=== PATIENT | female | born 1955 | race Caucasian/White ===

== ENCOUNTER 2019-11-28 18:37 | Emergency (ER) | payer MEDICARE, SELFPAY ==
[2019-11-28] VITALS (8 sets, daily range): BP systolic 148–182; BP diastolic 68–87; PULSE 77–92; RESP 17–22; TEMP 36.6; O2SAT 96–100
--- NOTE | ~2019-11-28 | XR_ITS ---
EXAMINATION: XR chest 1V portable DATE: 11/28/2019 20:02 INDICATION: Cough. Dyspnea. TECHNIQUE: A single frontal view of the chest was obtained. COMPARISON: Chest 2 views 04/07/2016, chest CT 04/07/2016 FINDINGS: There are airspace opacities in left lower lung zone. No pleural effusion or pneumothorax. The heart size is normal. There is a prominent left paracardial fat pad. There is an old healed fract ure of left clavicle. IMPRESSION: 1. Airspace opacities in left lower lung zone, consistent with atelectasis versus pneumonia. Reviewed, dictated and finalized at location A. IMPRESSION: 1. Airspace opacities in left lower lung zone, consistent with atelectasis vers us pneumonia.
--- NOTE | 2019-11-28 19:32 | ED.SOB ---
HPI - SOB/Dyspnea General Chief Complaint: Shortness of Breath/Dyspnea Stated Complaint: cough Time Seen by Provider: 11/28/19 19:31 Source: patient Mode of arrival: ambulatory Limitations: no limitations History of Present Illness HPI Narrative: The pt is a 64 y/o female who presents to the ED c/o productive cough onset 4 days ago. Pt states that she has a PMHx of asthma, and she has used her inhaler 4-5 times a day with 2 puffs at a time. Pt states that the cough is intermittently productive with white sputum. Pt reports SOB and left scapular pain with deep breaths, but denies CP and fever. Pt notes that she used to smoke cigarettes, but quit in 1989. She notes that her adopted son, who is seven, is sick currently as well. MD elicited complaint: cough Pertinent past history: asthma Onset (ago): day(s) (4) Context: other (Adopted son is sick) Known history of: asthma Associated symptoms: sputum production (Intermittent, white) and other (Dyspnea, left scapular pain with deep breaths) Treatment prior to arrival: bronchodilator Related Data Allergies Allergy/AdvReac Type Severity Reaction Status Date / Time tetracycline Allergy Mild Nausea and Verified 11/28/19 19:51 Vomiting Review of Systems Review of Systems: All systems reviewed & are unremarkable except as noted in HPI and below Constitutional: Constitutional: Denies fever(s) Cardiovascular: Cardiovascular: Denies chest pain Respiratory: Respiratory: Reports cough (Intermittently productive with white sputum) and Reports dyspnea Musculoskeletal: Musculoskeletal: Reports other (Left scapular pain with deep breaths) [facility] Past Medical History Medical History (Updated 11/28/19 @ 22:23 by Eusebia Parmar MD) Asthma Bilateral cataracts Clavicular fracture Diabetes mellitus Dislocation of left patella HTN (hypertension) Left wrist fracture Sleep apnea Surgical History Surgical History (Updated 11/28/19 @ 19:39 by Mina Lopez) H/O bilateral cataract extraction H/O tubal ligation H/O wrist surgery Left wrist ORIF Hx of LASIK Social History Social History (Updated 11/28/19 @ 19:55 by Mina Lopez) Smoking status: Former smoker Comments PCP: Dr. Rainey Exam Const: General: cooperative, no acute distress and alert Nutritional Appearance: obese Orientation/consciousness: patient oriented x3 Limitations: no limitations Resp: Effort & Inspection: other (Bronchospastic cough) Auscultation: wheezes throughout Cardio: Rate: regular rate Rhythm: regular rhythm GI: GI Palp: Yes Soft to palpation and No Tenderness to palpation present (GI) Auscultation: normal bowel sounds Skin: General skin exam: normal color Neuro: General: patient oriented x3 Cognition (Neuro): normal cognition Speech: normal speech Extrem: General: normal to inspection, full ROM and no clubbing, cyanosis or edema Psych: Mental Status: mental status grossly normal Affect: normal affect Attitude: cooperative Course Course Emergency Course: Patient feeling better after hour-long continuous nebulizer treatment. Patient wheezing significantly improved. Chest x-ray suggestive of possible pneumonia. Will treat with antibiotics. Will prescribe steroids for acute exacerbation of asthma/COPD. Patient was prescribed nebulizer solution and given order for nebulizer machine given she has used this in the past. Vital Signs Vital signs: Vital Signs Temperature 98 F 11/28/19 18:48 Pulse Rate 89 11/28/19 18:48 Respiratory Rate 22 H 11/28/19 18:48 Blood Pressure 182/68 H 11/28/19 18:48 Pulse Oximetry 96 11/28/19 18:48 Temperature 98 F 11/28/19 18:48 Pulse Rate 90 11/28/19 21:18 Respiratory Rate 20 11/28/19 21:18 Blood Pressure 154/87 H 11/28/19 20:40 Pulse Oximetry 100 11/28/19 20:40 MDM - SOB/Dyspnea Imaging Data Radiologist's impression: ITS Impressions Chest X-Ray 11/28/19 20:03 IMPRESSION: 1. Airspace op
[2019-11-28] MEDS: ALBUTEROL SULFATE NEB 2.5 MG/0.5 ML INH 15 MG INHALATION (20:08)
[2019-11-28] MEDS: IPRATROPIUM BR 0.02% INH SOLN 0.5 MG/2.5 ML VIAL 1.5 MG INHALATION (20:09)
== END 2019-11-28 22:52 | disposition home or self-care (01) ==
PROVIDERS: Emergency Provider Emergency Medicine
DX: J44.1 Chronic obstructive pulmonary disease with (acute) exacerbation (principal); J18.1 Lobar pneumonia, unspecified organism; E11.9 Type 2 diabetes mellitus without complications; I10 Essential (primary) hypertension; G47.30 Sleep apnea, unspecified; Z98.42 Cataract extraction status, left eye; Z98.41 Cataract extraction status, right eye; Z87.891 Personal history of nicotine dependence
CPT/HCPCS: 71045; 94640; 99283

== ENCOUNTER 2020-01-26 21:54 | Emergency (ER) | payer MEDICARE, SELFPAY ==
--- NOTE | ~2020-01-26 | XR_ITS ---
EXAMINATION: XR knee RT 3V DATE: 01/26/2020 22:17 INDICATION: Right knee pain. Injury. TECHNIQUE: 3 views of right knee were obtained. COMPARISON: None. FINDINGS: Bone alignment is normal. No fracture. There is severe osteoarthritis of patellofemoral com partment and mild osteoarthritis of medial and lateral compartments. There is a moderate-sized knee j oint effusion. IMPRESSION: 1. Severe right knee osteoarthritis. 2. Moderate-sized right knee joint effusion. Reviewed, dictated and finalized at location A.
[2020-01-26 22:00] VITALS: BP 175/86; PULSE 87; RESP 20; TEMP 36.6; O2SAT 96
--- NOTE | 2020-01-26 22:14 | ED_ITS ---
HPI - Extremity Injury (Lower) General Chief Complaint: Extremity Injury, Lower Stated Complaint: R knee pain Time Seen by Provider: 01/26/20 22:14 History of Present Illness HPI Narrative: Right knee pain for >1 year. Worse today after she twisted it while walking. She tried naproxen without relief. Related Data Allergies Allergy/AdvReac Type Severity Reaction Status Date / Time tetracycline Allergy Mild Nausea and Verified 01/26/20 22:02 Vomiting Review of Systems Review of Systems: All systems reviewed & are unremarkable except as noted in HPI and below Constitutional: Constitutional: Denies fever(s) Cardiovascular: Cardiovascular: Denies chest pain Respiratory: Respiratory: Denies dyspnea [facility] Past Medical History Medical History Asthma Bilateral cataracts Clavicular fracture Diabetes mellitus Dislocation of left patella HTN (hypertension) Left wrist fracture Sleep apnea Surgical History Surgical History H/O bilateral cataract extraction H/O tubal ligation H/O wrist surgery Left wrist ORIF Hx of LASIK Social History Social History Smoking status: Former smoker Exam Const: General: no acute distress and alert Orientation/consciousness: patient oriented x3 HENMT: Head: normal to inspection Resp: Effort & Inspection: normal respiratory effort Cardio: Other: 2+ right DP Extrem: Other: Tenderness over tibial tubercle. Course Vital Signs Vital signs: Vital Signs Temperature 36.6 C 01/26/20 22:00 Pulse Rate 87 01/26/20 22:00 Respiratory Rate 20 01/26/20 22:00 Blood Pressure 175/86 H 01/26/20 22:00 Pulse Oximetry 96 01/26/20 22:00 Temperature 36.6 C 01/26/20 22:00 Pulse Rate 87 01/26/20 22:00 Respiratory Rate 20 01/26/20 22:00 Blood Pressure 175/86 H 01/26/20 22:00 Pulse Oximetry 96 01/26/20 22:00 MDM - Extremity Injury (Lower) Imaging Data My impression: Osteoarthritis Discharge Plan Discharge Clinical Impression: Knee pain, Osteoarthritis Patient Disposition: Home, Self-Care Condition: Stable Instructions: Antibiotic Form, Knee Pain (ED) Prescriptions: No Action azithromycin 250 mg tablet See Rx Instructions .ROUTE .COMPLEX Qty: 6 RF: 0 prednisone 20 mg tablet 60 mg PO DAILY 5 Days Qty: 15 RF: 0 albuterol sulfate 2.5 mg /3 mL (0.083 %) solution for nebulization 5 mg INHALATION Q4H PRN (Reason: shortness of breath or wheezing) Qty: 180 RF: 0 Follow-up/Referrals: UNKNOWN,DOCTOR [Primary Care Provider] - Discharge Date/Time: 01/26/20 23:58
[2020-01-26] MEDS: KETOROLAC (*BKC) 60 MG/2 ML VIAL IM (22:56)
[2020-01-26] MEDS: ACETAMINOPHEN 500 MG TABLET 1000 MG PO (22:56)
== END 2020-01-26 23:58 | disposition home or self-care (01) ==
PROVIDERS: Emergency Provider Emergency Medicine
DX: M25.561 Pain in right knee (principal); J45.909 Unspecified asthma, uncomplicated; E11.9 Type 2 diabetes mellitus without complications; I10 Essential (primary) hypertension; G47.30 Sleep apnea, unspecified; Z98.42 Cataract extraction status, left eye; Z98.41 Cataract extraction status, right eye; Z87.891 Personal history of nicotine dependence
CPT/HCPCS: 73562; 96372; 99283; A9270; J1885

== ENCOUNTER 2021-04-01 18:06 | Emergency (ER) | payer MEDICARE, SELFPAY ==
--- NOTE | ~2021-04-01 | XR_ITS ---
EXAMINATION: XR knee RT 3V DATE: 04/01/2021 18:46 INDICATION: Right knee pain TECHNIQUE: Three views of the right knee were obtained. COMPARISON: None. FINDINGS: Alignment is normal. No fracture or osteochondral lesion. There is unchanged tricompartment al osteoarthritis, severe in the patellofemoral compartment and mild in the medial and lateral compar tments. There is a moderate-sized knee joint effusion. Soft tissues are unremarkable. IMPRESSION: 1. No acute osseous abnormality. 2. Severe osteoarthritis of the patellofemoral compartment 3. Chronic moderate size knee joint effusion. Reviewed, dictated and finalized at location A.
[2021-04-01 18:28] VITALS: BP 149/69; PULSE 88; RESP 16; TEMP 36.8; O2SAT 97
--- NOTE | 2021-04-01 18:53 | ED.GENADULT ---
HPI - General Adult General Chief complaint: Extremity Injury, Lower Stated complaint: Right leg pain Time Seen by Provider: 04/01/21 18:34 Source: patient and RN notes reviewed Mode of arrival: ambulatory Limitations: no limitations History of Present Illness HPI narrative: Patient 66-year-old female who presents with right knee pain that she woke with with swelling patient notes history of chronic knee pain is followed by pain management notes moderate aching pain worse with activity and movement denies injury or trauma presents in no distress Related Data Home Medications Medication Instructions Recorded Confirmed amlodipine 04/01/21 04/01/21 dulaglutide [Trulicity] 0.75 mg SUBCUT WEEKLY 04/01/21 empagliflozin-metformin [Synjardy] 1 tablet PO BID 04/01/21 glipizide mg 04/01/21 hydrochlorothiazide 04/01/21 losartan 04/01/21 montelukast mg 04/01/21 pen needle, diabetic [BD Zeenat 2nd 04/01/21 04/01/21 Gen Pen Needle] tizanidine mg 04/01/21 Allergies Allergy/AdvReac Type Severity Reaction Status Date / Time tetracycline Allergy Mild Nausea and Verified 04/01/21 18:51 Vomiting Review of Systems Review of Systems: All systems reviewed & are unremarkable except as noted in HPI and below PMFSH Past Medical History Medical History (Updated 04/01/21 @ 18:58 by Michael Zavala PA-C) Asthma Bilateral cataracts Clavicular fracture Diabetes mellitus Dislocation of left patella HTN (hypertension) Left wrist fracture Sleep apnea Surgical History Surgical History H/O bilateral cataract extraction H/O tubal ligation H/O wrist surgery Left wrist ORIF Hx of LASIK Social History Social History Smoking status: Former smoker Exam Narrative: GENERAL: Well-appearing, well-nourished, and in no acute distress. HEAD: Normocephalic, atraumatic. EYES: PERRLA and EOMI. ENT: Nares clear, no rhinorrhea or epistaxis. Mucous membranes moist. CHEST: Clear to auscultation. No respiratory distress. No wheezes rales or rhonchi HEART: Regular rate and rhythm. No murmur heard. EXTREMITIES: Tenderness of the anterior right knee with joint effusion noted no erythema or warmth to touch SKIN: Warm, dry, no rash. NEURO: No focal deficits. Alert and oriented x3. Cranial nerves II through XII grossly intact. Neurovascularly intact PSYCH: Normal mood and affect. Course Course Emergency Course: Patient in the room no distress will be referred to orthopedics made aware of her case findings treatment plan and diagnosis Vital Signs Vital signs: Vital Signs Temperature 98.2 F 04/01/21 18:28 Pulse Rate 88 04/01/21 18:28 Respiratory Rate 16 04/01/21 18:28 Blood Pressure 149/69 H 04/01/21 18:28 Pulse Oximetry 97 04/01/21 18:28 Temperature 98.2 F 04/01/21 18:28 Pulse Rate 88 04/01/21 18:28 Respiratory Rate 16 04/01/21 18:28 Blood Pressure 149/69 H 04/01/21 18:28 Pulse Oximetry 97 04/01/21 18:28 Medical Decision Making MDM Narrative Medical decision making narrative: Patients injury or pain is consistent with musculoskeletal etiology. No signs of neurological or vascular compromise on exam. Compartments and tisues are soft without signs of compartment syndrome. Pain is felt appropriate for further evaluation on an outpatient basis. Vital Signs Vital Signs: Vital Signs Temperature 98.2 F 04/01/21 18:28 Pulse Rate 88 04/01/21 18:28 Respiratory Rate 16 04/01/21 18:28 Blood Pressure 149/69 H 04/01/21 18:28 Pulse Oximetry 97 04/01/21 18:28 Temperature 98.2 F 04/01/21 18:28 Pulse Rate 88 04/01/21 18:28 Respiratory Rate 16 04/01/21 18:28 Blood Pressure 149/69 H 04/01/21 18:28 Pulse Oximetry 97 04/01/21 18:28 Imaging Data Radiologist's impression: ITS Impressions Knee X-Ray 04/01/21 18:49 IMPRESSION: 1. No acute osseous
--- NOTE | 2021-04-01 19:35 | ED.GENADULT ---
HPI - General Adult General Chief complaint: Extremity Injury, Lower Stated complaint: Right leg pain Time Seen by Provider: 04/01/21 18:34 Source: patient and RN notes reviewed Mode of arrival: ambulatory Limitations: no limitations History of Present Illness HPI narrative: Patient is a 66-year-old female who presents to emergency department for evaluation of right knee pain that she woke with noting aching pain worse with activity and movement Related Data Home Medications Medication Instructions Recorded Confirmed amlodipine 04/01/21 04/01/21 dulaglutide [Trulicity] 0.75 mg SUBCUT WEEKLY 04/01/21 empagliflozin-metformin [Synjardy] 1 tablet PO BID 04/01/21 glipizide mg 04/01/21 hydrochlorothiazide 04/01/21 losartan 04/01/21 montelukast mg 04/01/21 pen needle, diabetic [BD Zeenat 2nd 04/01/21 04/01/21 Gen Pen Needle] tizanidine mg 04/01/21 Allergies Allergy/AdvReac Type Severity Reaction Status Date / Time tetracycline Allergy Mild Nausea and Verified 04/01/21 18:51 Vomiting PMFSH Past Medical History Medical History (Updated 04/01/21 @ 18:58 by Michael Zavala PA-C) Asthma Bilateral cataracts Clavicular fracture Diabetes mellitus Dislocation of left patella HTN (hypertension) Left wrist fracture Sleep apnea Surgical History Surgical History H/O bilateral cataract extraction H/O tubal ligation H/O wrist surgery Left wrist ORIF Hx of LASIK Social History Social History Smoking status: Former smoker Course Vital Signs Vital signs: Vital Signs Temperature 98.2 F 04/01/21 18:28 Pulse Rate 88 04/01/21 18:28 Respiratory Rate 16 04/01/21 18:28 Blood Pressure 149/69 H 04/01/21 18:28 Pulse Oximetry 97 04/01/21 18:28 Temperature 98.2 F 04/01/21 18:28 Pulse Rate 88 04/01/21 18:28 Respiratory Rate 16 04/01/21 18:28 Blood Pressure 149/69 H 04/01/21 18:28 Pulse Oximetry 97 04/01/21 18:28 Medical Decision Making Vital Signs Vital Signs: Vital Signs Temperature 98.2 F 04/01/21 18:28 Pulse Rate 88 04/01/21 18:28 Respiratory Rate 16 04/01/21 18:28 Blood Pressure 149/69 H 04/01/21 18:28 Pulse Oximetry 97 04/01/21 18:28 Temperature 98.2 F 04/01/21 18:28 Pulse Rate 88 04/01/21 18:28 Respiratory Rate 16 04/01/21 18:28 Blood Pressure 149/69 H 04/01/21 18:28 Pulse Oximetry 97 04/01/21 18:28 Discharge Plan Discharge Clinical Impression: Acute pain of right knee Patient Disposition: Home, Self-Care Condition: Stable Instructions: Antibiotic Form, Arthralgia (ED) Additional Instructions: Wear brace and use crutches. No weight on the affected leg until able to bear weight without pain. Ice and elevate extremity. Pain medication as needed and directed. Follow up with your doctor for further care in the next 7 days. Return if symptoms worsen or concerns or any increase in redness swelling pain fever over 100.5 or any loss of feeling or function in the extremities. Prescriptions: No Action tizanidine 4 mg tablet RF: 0 glipizide 10 mg tablet RF: 0 amlodipine 10 mg tablet RF: 0 montelukast 10 mg tablet RF: 0 losartan 100 mg tablet RF: 0 hydrochlorothiazide 12.5 mg tablet RF: 0 (DME) pen needle, diabetic [BD Zeenat 2nd Gen Pen Needle] 32 gauge x 5/32 needle MISCELLANEOUS RF: 0 Trulicity 0.75 mg/0.5 mL Pen Injector 0.75 mg SUBCUT WEEKLY RF: 0 Synjardy 5-1,000 mg Tablet 1 tablet PO BID RF: 0 Follow-up/Referrals: PHYSICIAN,AIR TRAFFIC CONTROL SUPERVISOR [Primary Care Provider] - Thanh Jeffries MD [Physician] -
== END 2021-04-01 19:55 | disposition home or self-care (01) ==
LOC: ANHED 18:59
PROVIDERS: Emergency Provider Emergency Medicine
DX: M25.561 Pain in right knee (principal); E11.9 Type 2 diabetes mellitus without complications; J45.909 Unspecified asthma, uncomplicated; I10 Essential (primary) hypertension; G47.30 Sleep apnea, unspecified; Z98.42 Cataract extraction status, left eye; Z98.41 Cataract extraction status, right eye; M17.11 Unilateral primary osteoarthritis, right knee; Z79.84 Long term (current) use of oral hypoglycemic drugs; Z79.899 Other long term (current) drug therapy
CPT/HCPCS: 73562; 99283

== ENCOUNTER 2021-05-28 13:21 | Emergency (ER) | payer MEDICARE, SELFPAY ==
--- NOTE | ~2021-05-28 | CT_ITS ---
EXAMINATION: CTA chest PE protocol DATE: 05/28/2021 16:31 INDICATION: Shortness of breath and right-sided chest pain. Elevated d-dimer. TECHNIQUE: Computed tomography (CT) pulmonary angiogram of the chest was performed with 100 mL Omnipa que-350 intravenous contrast. Additional 3D reconstructions utilizing coronal maximum intensity proje ction (MIP) were performed. Automated exposure control and iterative reconstruction technique were em ployed. The dose-length product was 731.87 mGy-cm. COMPARISON: None FINDINGS: Excellent contrast opacification of the pulmonary arteries. There is mild streak artifact from dense contrast in the superior vena cava and right atrium. Mild scattered respiratory motion artifact which does not significantly limit evaluation. No pulmonary embolism. There are few scattered small calcif ied pulmonary nodules along with calcified bilateral hilar lymph nodes and several scattered splenic calcific lesions, all consistent with old granulomatous disease. Mild linear discoid atelectasis at t he bilateral posterior lung bases. No pneumonia, pulmonary edema or other pulmonary infiltrates, pleu ral effusion or pneumothorax. Heart size is normal. No pericardial effusion. Thoracic aorta is normal in caliber with no dissection. No pathologically enlarged thoracic lymphadenopathy. Mild thoracic sp ondylosis. IMPRESSION: 1. Mild bibasilar atelectasis. No pulmonary embolism or other acute cardiopulmonary disease. Reviewed, dictated and finalized at location A. IMPRESSION: 1. Mild bibasilar atelectasis. No pulmonary embolism or other acute cardiopulmo nary disease.
--- NOTE | ~2021-05-28 | XR_ITS ---
EXAMINATION: XR chest 2V EXAM DATE: 05/28/2021 13:41 INDICATION: cough, rib pain . TECHNIQUE: Frontal and lateral projections of the chest obtained and reviewed. Comparison is made to prior examination from 11/28/2019. FINDINGS: The lungs are clear. There are no pleural effusions. The cardiomediastinal silhouette is within normal limits. There is no pneumothorax suspected. Mild thoracic dextroscoliosis. IMPRESSION: No acute cardiopulmonary findings. Reviewed, dictated and finalized at location A.
[2021-05-28 13:24] VITALS: BP 151/66; PULSE 91; RESP 17; TEMP 36.4; O2SAT 98
[2021-05-28 13:50] VITALS: RESP 22
--- NOTE | 2021-05-28 13:51 | ED.GENADULT ---
HPI - General Adult General Chief complaint: Unspecified Stated complaint: right rib pain Time Seen by Provider: 05/28/21 13:42 Source: patient Mode of arrival: ambulatory Limitations: no limitations History of Present Illness HPI narrative: Patient is a 66-year-old female complaining of right lateral rib pain, 8 out of 10, sharp, worse with deep breaths accompanied by shortness of breath due to the pain started 1 week ago. Patient does state that she was lifting heavy things 1 week ago. Patient also complaining of cough, nonproductive. Patient denies any chest pain, abdominal pain, nausea, vomiting, fever or chills. Related Data Home Medications Medication Instructions Recorded Confirmed amlodipine 04/01/21 04/01/21 dulaglutide [Trulicity] 0.75 mg SUBCUT WEEKLY 04/01/21 empagliflozin-metformin [Synjardy] 1 tablet PO BID 04/01/21 glipizide mg 04/01/21 hydrochlorothiazide 04/01/21 losartan 04/01/21 montelukast mg 04/01/21 pen needle, diabetic [BD Zeenat 2nd 04/01/21 04/01/21 Gen Pen Needle] tizanidine mg 04/01/21 Allergies Allergy/AdvReac Type Severity Reaction Status Date / Time tetracycline Allergy Mild Nausea and Verified 05/28/21 13:47 Vomiting Review of Systems Review of Systems: All systems reviewed & are unremarkable except as noted in HPI and below Constitutional: Constitutional: Denies body ache(s), Denies chills, Denies excessive sweating, Denies fatigue, Denies fever(s), Denies headache(s), Denies lethargy, Denies malaise, Denies weakness and Denies weight loss Eyes: Eyes: Denies blurry vision, Denies change in vision and Denies loss of vision ENT: Denies dizziness, Denies ear discharge, Denies headache(s), Denies lip swelling, Denies epistaxis, Denies nasal congestion, Denies neck pain, Denies throat swelling and Denies tongue swelling Cardiovascular: Cardiovascular: Denies chest pain, Denies chest pain at rest, Denies chest pain with activity, Denies diaphoresis, Denies rapid heart rate, Denies edema, Denies irregular heart rhythm, Denies lightheadedness, Denies palpitations, Denies dyspnea and Denies dyspnea on exertion Respiratory: Respiratory: Denies chest congestion, Denies hemoptysis, Denies dyspnea and Denies dyspnea on exertion Gastrointestinal: Gastrointestinal: Denies abdominal pain, Denies melena, Denies hematochezia, Denies diarrhea, Denies nausea, Denies vomiting and Denies hematemesis Musculoskeletal: Musculoskeletal: Denies abnormal gait, Denies deformity, Denies joint swelling, Denies limited range of motion, Denies neck pain and Denies numbness Neurologic: Denies Abnormal speech present, Denies abnormal gait, Denies confusion, Denies dizziness, Denies headache(s), Denies focal weakness, Denies loss of vision, Denies numbness, Denies Other visual disturbances, Denies Sensory deficit (Neuro) and Denies weakness Psychiatric: Psychiatric: Denies confusion, Denies depression, Denies auditory hallucinations, Denies homicidal ideation and Denies suicidal ideation Endocrine: Endocrine: Denies cold intolerance, Denies excessive sweating, Denies fatigue, Denies heat intolerance and Denies palpitations Hematologic/Lymphatic: Hematologic/Lymphatic: Denies easy bleeding and Denies easy bruising Allergic/Immunologic: Allergic/Immunologic: Denies lip swelling, Denies throat swelling and Denies tongue swelling PMFSH Past Medical History Medical History (Updated 05/28/21 @ 16:46 by Amanuel Perez MD) Asthma Bilateral cataracts Clavicular fracture Diabetes mellitus Dislocation of left patella HTN (hypertension) Left wrist fracture Sleep apnea Surgical History Surgical History H/O bilateral cataract extraction H/O tubal ligation H/O wrist surgery Left wrist ORIF Hx of LASIK Social History Social History Smoking status: Former smoker Exam Const: General:
[2021-05-28] MEDS: HYDROcodone/acetaminophen (*CRX) 5-325 MG TABLET 1 TAB PO (13:58)
[2021-05-28 14:28] LABS: Basophils Absolute Auto 0.1 K/mm3 (0.0-0.1); Basophils Percent Auto 0.5 % (0.2-1.2); Eosinophils Absolute Auto 0.2 K/mm3 (0-0.3); Eosinophils Percent Auto 1.5 % (0-4.4); Hemoglobin 14.9 g/dL (12.0-15.0); Immature Granulocyte Absolute 0.05 K/mm3 (0.00-0.031); Immature Granulocyte Percent A 0.4 % (0-0.5); Lymphocytes Absolute Auto 3.12 K/mm3 (0.9-3.2); Lymphocytes Percent Auto 27.5 % (18.3-44.2); Mean Corpuscular HGB Conc 33.1 g/dl (32-36); Mean Corpuscular Hemoglobin 29.7 pg (26-34); Mean Corpuscular Volume 89.6 fl (80-100); Mean Platelet Volume 9.7 fl (7.4-10.4); Monocytes Absolute Auto 0.7 K/mm3 (0.1-0.6); Monocytes Percent Auto 6.3 % (2.6-8.5); Neutrophils Absolute Auto 7.2 K/mm3 (1.3-6.7); Neutrophils Percent Auto 63.8 % (45.5-73.1); Platelet Count Result 280 k/mm3 (150-375); Red Blood Count 5.02 M/mm3 (4.2-5.4); Red Cell Distribution Width 13.1 % (11.5-14.5); White Blood Count 11.3 K/mm3 (4.5-10.0)
[2021-05-28 14:37] LABS: INR 0.9
[2021-05-28 14:38] LABS: Partial Thromboplastin Time 26.4 SECONDS (22.3-36.8)
[2021-05-28 14:40] LABS: D Dimer 0.87 ug/mL (<0.48)
[2021-05-28 14:41] LABS: Alanine Aminotransferase 33 U/L (4-35); Albumin Level 4.6 g/dL (3.5-5.1); Alkaline Phosphatase 94 U/L (38-126); Anion Gap 8 mmol/L (8-16); Aspartate Amino Transferase 29 U/L (14-36); Bilirubin,Total 0.5 mg/dL (0.2-1.3); Blood Urea Nitrogen 20 mg/dL (7-17); Calcium 10.2 mg/dL (8.4-10.2); Carbon Dioxide 32 mmol/L (22-30); Chloride 100 mmol/L (98-107); Estimated CRCL calculation 91 ml/min; Estimated Glomerular Filt Rate > 60; Glucose 181 mg/dL (65-110); Lipase 41 U/L (23-300); Potassium 4.7 mmol/L (3.4-5.0); Sodium 140 mmol/L (137-145)
[2021-05-28 17:25] VITALS: BP 136/74; PULSE 79; RESP 18; TEMP 36.6; O2SAT 96
== END 2021-05-28 17:28 | disposition home or self-care (01) ==
PROVIDERS: Emergency Provider Emergency Medicine
DX: S29.019A Strain of muscle and tendon of unspecified wall of thorax, initial encounter (principal); J45.909 Unspecified asthma, uncomplicated; E11.9 Type 2 diabetes mellitus without complications; I10 Essential (primary) hypertension; G47.30 Sleep apnea, unspecified; Z98.49 Cataract extraction status, unspecified eye; Z87.891 Personal history of nicotine dependence; X50.0XXA Overexertion from strenuous movement or load, initial encounter; R06.02 Shortness of breath
CPT/HCPCS: 36415; 71046; 71275; 80053; 83690; 85025; 85380; 85610; 85730; 99284; A9270; Q9967

== ENCOUNTER 2024-08-25 14:25 | Outpatient (CLI) | payer MEDICARE, SELFPAY ==
[2024-08-25 15:21] LABS: Influenza A QL RT-PCR Negative (Negative); Influenza B QL RT-PCR Negative (Negative); RSV RNA, RT-PCR Negative (Negative); SARS-CoV-2 RNA PCR Negative (Negative)
== END 2024-08-25 14:26 | disposition home or self-care (01) ==
PROVIDERS: PCP Family Medicine; Visit Provider Family Medicine
DX: J06.9 Acute upper respiratory infection, unspecified (principal); Z20.822 Contact with and (suspected) exposure to COVID-19
CPT/HCPCS: 87637

== ENCOUNTER 2024-08-26 13:54 | Outpatient (CLI) | payer MEDICARE, SELFPAY ==
--- NOTE | ~2024-08-26 | XR_ITS ---
EXAMINATION: XR thoracic spine 2V DATE: 08/26/2024 14:29 INDICATION: Spondylosis. TECHNIQUE: 3 views of thoracic spine were obtained. COMPARISON: None. FINDINGS: There is 6 degrees dextrocurvature of thoracic spine. Vertebral body heights are normal. Th ere are endplate osteophytes at all levels. There is mildly decreased disc height at multiple levels in thoracic spine. IMPRESSION: 1. Mild thoracic spondylosis. Reviewed, dictated and finalized at location A. ICIAN SCRIBE
--- NOTE | ~2024-08-26 | XR_ITS ---
EXAMINATION: XR lumbar spine 2-3V DATE: 08/26/2024 14:29 INDICATION: Lumbar spondylosis. TECHNIQUE: 3 views of lumbar spine were obtained. COMPARISON: Lumbar spine radiographs 10/03/2018 FINDINGS: There is 8 degrees dextrocurvature of lumbar spine. Vertebral body heights are normal. Ther e is mildly decreased disc height at L1-L2 and L3-L4 and severely decreased disc at L5-S1. There is m ultilevel severe facet joint osteoarthritis. IMPRESSION: 1. Severe lower lumbar spondylosis. Reviewed, dictated and finalized at location A. USINE AND HEARSE UPHOLSTERER
--- NOTE | ~2024-08-26 | XR_ITS ---
EXAMINATION: XR knee LT 3V DATE: 08/26/2024 14:29 INDICATION: Knee pain. TECHNIQUE: 3 views of left knee including standing views were obtained. COMPARISON: None. FINDINGS: Alignment is normal. No fracture. There is mild osteoarthritis of medial and patellofemoral compartments and moderate osteoarthritis of lateral compartment. No knee joint effusion. IMPRESSION: 1. Moderate left knee osteoarthritis. Reviewed, dictated and finalized at location A. [employer]
--- NOTE | ~2024-08-26 | XR_ITS ---
EXAMINATION: XR_CERV2-3V_CR DATE: 08/26/2024 14:29 INDICATION: Cervical spondylosis. TECHNIQUE: 3 views of cervical spine were obtained. COMPARISON: Neck CT 03/01/2017 FINDINGS: There is 4 degrees levocurvature of cervical spine. There is kyphosis of cervical spine. Ve rtebral body heights are normal. There is mildly decreased disc height at C5-C6. There is multilevel uncovertebral joint osteoarthritis, severe on the right at C5-C6. There is multilevel facet joint ost eoarthritis, severe on the right at C3-C4. There is mild central canal stenosis at C4-C5 and C5-C6. N o prevertebral soft tissue swelling. IMPRESSION: 1. Mild cervical spondylosis. Reviewed, dictated and finalized at location A. ER REGISTRAR
--- NOTE | ~2024-08-26 | XR_ITS ---
EXAMINATION: XR knee RT 3V DATE: 08/26/2024 14:29 INDICATION: Right knee pain. TECHNIQUE: 3 views of right knee including standing views were obtained. COMPARISON: Right knee radiographs 04/01/2021 FINDINGS: There is lateral subluxation of patella. No fracture. There is moderate osteoarthritis of p atellofemoral compartment and mild osteoarthritis and medial and lateral compartments. No knee joint effusion. IMPRESSION: 1. Moderate right knee osteoarthritis. Reviewed, dictated and finalized at location A. ESSIONAL SECURITY OFFICER
== END 2024-08-26 13:55 | disposition home or self-care (01) ==
PROVIDERS: PCP Family Medicine; Visit Provider Student in an Organized Health Care Education/Training Program
DX: M47.894 Other spondylosis, thoracic region (principal); M47.896 Other spondylosis, lumbar region; M47.892 Other spondylosis, cervical region; M17.0 Bilateral primary osteoarthritis of knee
CPT/HCPCS: 72040; 72070; 72100; 73562

== ENCOUNTER 2024-09-22 13:06 | Emergency (ER) | payer MEDICARE, SELFPAY ==
--- NOTE | ~2024-09-22 | XR_ITS ---
EXAMINATION: XR chest 2V DATE: 09/22/2024 15:15 INDICATION: Right lateral rib pain. TECHNIQUE: Frontal and lateral views of the chest were obtained. COMPARISON: Chest 2 views 05/28/21 FINDINGS: Calcified bilateral lung nodules are consistent with old granulomatous disease. No pleural effusion or pneumothorax. The heart size is normal. There is a prominent left pericardial fat pad. IMPRESSION: 1. No acute cardiopulmonary disease. Reviewed, dictated and finalized at location B. L JOB TITLES
--- NOTE | ~2024-09-22 | XR_ITS ---
EXAMINATION: XR hip RT 2V w AP pelvis DATE: 09/22/2024 14:02 INDICATION: Right hip pain. Fall. TECHNIQUE: An anteroposterior view of the pelvis and 2 views of right hip were obtained. COMPARISON: None. FINDINGS: There is lumbar dextrocurvature and severe spondylosis. No fracture. There is mild osteoart hritis of the hips. Osseous pubis is noted. IMPRESSION: 1. Mild osteoarthritis of the hips. Reviewed, dictated and finalized at location B. D CAREGIVER
--- NOTE | ~2024-09-22 | XR_ITS ---
EXAMINATION: XR knee RT min 4V DATE: 09/22/2024 14:02 INDICATION: Right knee pain. Fall. TECHNIQUE: 4 views of right knee were obtained. COMPARISON: Right knee radiographs 08/26/2024 FINDINGS: Alignment is normal. No fracture. There is moderate osteoarthritis of patellofemoral compar tment and mild osteoarthritis of medial and lateral compartments. There is a small knee joint effusio n. IMPRESSION: 1. Moderate right knee osteoarthritis. 2. Small right knee joint effusion. Reviewed, dictated and finalized at location B. EXAMINER
--- NOTE | ~2024-09-22 | CT_ITS ---
EXAMINATION: CT lumbar spine wo con DATE: 09/22/2024 13:48 INDICATION: Back pain. Fall. TECHNIQUE: Computed tomography (CT) of the lumbar spine was performed without intravenous contrast. A utomated exposure control and iterative reconstruction technique were employed. The dose-length produ ct was 1323.48 mGy-cm. COMPARISON: Lumbar spine radiographs 08/26/2024 FINDINGS: There is 9 degrees dextrocurvature of lumbar spine. Vertebral body heights are normal. Ther e is 3 mm anterolisthesis of L4 on L5. There is mildly decreased disc height at L1-L2, L2-L3, and L3- L4 and severely decreased disc height at L5-S1. The following disc levels are specifically discussed: L1-L2: The disc is bulging. There is severe right and moderate left facet joint osteoarthritis. There is no neural foraminal stenosis. There is mild central canal stenosis. L2-L3: The disc is bulging. There is severe bilateral facet joint osteoarthritis. There is mild bilat eral neural foraminal stenosis. There is mild central canal stenosis. L3-L4: The disc is bulging. There is moderate right and severe left facet joint osteoarthritis. There is mild bilateral neural foraminal stenosis. There is mild central canal stenosis. L4-L5: The disc is bulging. There is severe bilateral facet joint osteoarthritis. There is mild bilat eral neural foraminal stenosis. There is mild central canal stenosis. L5-S1: The disc is bulging. There is severe bilateral facet joint osteoarthritis. There is moderate r ight and mild left neural foraminal stenosis. There is mild central canal stenosis. IMPRESSION: 1. Severe lower lumbar spondylosis. Reviewed, dictated and finalized at location B. E RECYCLER
--- NOTE | ~2024-09-22 | CT_ITS ---
History: Back pain after a fall PROCEDURE: CT thoracic spine without intravenous contrast. COMPARISON: None TECHNIQUE: Multiple contiguous axial images of the thoracic spine were performed without the administration of i ntravenous contrast. DLP: 1472 mGy-cm FINDINGS: Preservation of the normal curvature of the thoracic spine is identified. No acute compression fractures are present. No soft tissue abnormality is noted. 2 mm calcified granuloma within the right lower lobe. Remaining visualized lung garibay are unremarkable. Impression: No acute fracture, as detailed above. Reviewed, dictated and finalized at location A. WRITERS FUNCTIONAL TESTER Impression: No acute fracture, as detailed above.
[2024-09-22 13:17] VITALS: BP 180/63; PULSE 88; RESP 18; TEMP 36.9; O2SAT 95
--- NOTE | 2024-09-22 13:33 | ED_ITS ---
HPI - Fall General Chief Complaint: Fall <Elaine Buchanan APRN - Last Filed: 09/22/24 13:39> Stated Complaint: fall, right rib pain, right knee pain <Elaine Buchanan APRN - Last Filed: 09/22/24 13:39> Time Seen by Provider: 09/22/24 13:30 <Elaine uBchanan APRN - Last Filed: 09/22/24 13:39> Focused HPI: Patient is a 69-year-old female who presents to the ER with complaint of right knee, right ribcage, and lower back pain following a fall last night. She reports she tripped on something and landed on her knee and chest wall pain. Patient denies use of blood thinners. Reports she has a history of diabetes, high blood pressure, and asthma. Patient denies any shortness of breath, abdominal pain, or one-sided weakness/numbness. GENERAL: Well-appearing, well-nourished, and in no acute distress. HEAD: Normocephalic, atraumatic. CHEST: Clear to auscultation. ?No respiratory distress. HEART: Regular rate and rhythm.? NEURO: ?Alert and oriented x3. Patient screened in triage and initial orders placed.? ?Additional care and disposition to be based upon?diagnostic testing and treatment. <Elaine Buchanan APRN - Last Filed: 09/22/24 13:39> History of Present Illness HPI Narrative: Agree with the above HPI <Mohinder Almeida MD - Last Filed: 09/22/24 19:04> Related Data Home Medications: Home Medications ?Medication ?Instructions ?Recorded ?Confirmed ?Last Taken ?Type tizanidine 4 mg tablet mg 04/01/21 08/26/24 Unknown History <Elaine Buchanan APRN - Last Filed: 09/22/24 13:39> Allergies/Adverse Reactions: Allergies Allergy/AdvReac Type Severity Reaction Status Date / Time tetracycline Allergy Mild Nausea and Verified 09/22/24 14:37 Vomiting <Elaine Buchanan APRN - Last Filed: 09/22/24 13:39> Review of Systems Review of Systems: All systems reviewed & are unremarkable except as noted in HPI and below <Mohinder Almeida MD - Last Filed: 09/22/24 19:04> [facility] Past Medical History Medical History: Medical History Dislocation of left patella Clavicular fracture Left wrist fracture Bilateral cataracts Asthma HTN (hypertension) Sleep apnea Diabetes mellitus <Elaine Buchanan APRN - Last Filed: 09/22/24 13:39> Surgical History Surgical History: Surgical History H/O wrist surgery Left wrist ORIF H/O bilateral cataract extraction Hx of LASIK H/O tubal ligation <Elaine Buchanan APRN - Last Filed: 09/22/24 13:39> Social History Social History: Social History Smoking status: Former smoker <Elaine Buchanan APRN - Last Filed: 09/22/24 13:39> Exam Narrative: APPEARANCE: Well appearing, no pain, no distress, well-nourished. HEAD: normocephalic, atraumatic. EYES: PERRLA/EOMI, conjunctivae clear. NOSE: Normal no drainage EARS:TMS clear with good light reflex. THROAT: Pharynx clear, no exudate. NECK: Supple. No adenopathy, no masses. RESPIRATORY: Airway patent, respirations nonlabored. Clear to auscultation bilaterally, no rales, rhonchi, wheezing. CARDIOVASCULAR: Regular rate and rhythm without murmurs rubs or gallops. ABDOMINAL: Soft, nontender, nondistended, normal bowel sounds MUSCULOSKELETAL: Right knee tenderness to palpation, right-sided chest wall tenderness to palpation, midline back tenderness to palpation with no step-off or deformity. NEURO: Alert. Cranial nerves II through XII intact. Good gait. Good coordination SKIN: Warm, dry. Normal Color <Mohinder Almeida MD - Last Filed: 09/22/24 19:04> Course Vital Signs Vital signs: Vital Signs Temperature 98.4 F 09/22/24 13:17 Pulse Rate 88 09/22/24 13:17 Respiratory Rate 18 09/22/24 13:17 Blood Pressure 180/63 H 09/22/24 13:17 Pulse Oximetry 95 09/22/24 13:17 Oxygen Delivery Room Air 09/22/24 13:17 Temperature 98.4 F 09/22/24 13:17 Pulse Rate 85 09/22/24 14:40 Respiratory Rate 14 09/22/24 14:40 Blood Pressure 169/76 H 09/22/24 14:40 Pulse Oximetry 97 09/22/24 14:40 Oxygen Delivery Room Air 09/22/24 13:17 <Elaine Buchanan APRN - Last Filed: 09/22/24 13:39> Vital Signs Temperature 98.4 F 09/22/24 13:17 Pulse Rate 88 09/22/24 13:17 Respiratory Rate 18 09/22/24 13:17 Blood Pressure 180/63 H 09/22/24 13:17 Pulse Oximetry 95 09/22/24 13:17 Oxygen Delivery Room Air 09/22/24 13:17 Temperature 98.4 F 09/22/24 13:17 Pulse Rate 85 09/22/24 14:40 Respiratory Rate 14 09/22/24 14:40 Blood Pressure 169/76 H 09/22/24 14:40 Pulse Oximetry 97 09/22/24 14:40 Oxygen Delivery Room Air 09/22/24 13:17 <Mohinder Almeida MD - Last Filed: 09/22/24 19:04> MDM - Fall MDM Narrative Medical decision making narrative: 69-year-old female presented emergency department for evaluation for back pain, knee pain and right hip pain. Imaging was negative for acute fracture dislocation. Patient was updated results of the workup. Patient was encouraged close follow-up with her primary care physician. All questions concerns were addressed. Patient does use a walker at baseline and patient was provided a knee immobilizer for comfort. Patient was encouraged of close follow-up with Orthopedics. <Mohinder Almeida MD - Last Filed: 09/22/24 19:04> Differential Diagnosis Differential diagnosis: Likely other (Knee contusion, knee fracture lumbar vertebral injury, thoracic spine injury, hip fracture, hip contusion) <Mohinder Almeida MD - Last Filed: 09/22/24 19:04> Imaging Data Radiologist's impression: Impressions Lumbar Spine CT 09/22/24 13:52 IMPRESSION: 1. Severe lower lumbar spondylosis. Hip/Pelvis X-Ray 09/22/24 14:05 IMPRESSION: 1. Mild osteoarthritis of the hips. Knee X-Ray 09/22/24 14:12 IMPRESSION: 1. Moderate right knee osteoarthritis. 2. Small right knee joint effusion. Thoracic Spine CT 09/22/24 15:12 Impression: No acute fracture, as detailed above. Chest X-Ray 09/22/24 15:16 IMPRESSION: 1. No acute cardiopulmonary disease. <Mohinder Almeida MD - Last Filed: 09/22/24 19:04> Discharge Plan Discharge Clinical Impression: Chest wall pain, Contusion of knee, right, Rib pain on right side <Elaine Buchanan APRN - Last Filed: 09/22/24 13:39> Patient Disposition: Home, Self-Care <Elaine Buchanan APRN - Last Filed: 09/22/24 13:39> Condition: Stable <Elaine Buchanan APRN - Last Filed: 09/22/24 13:39> Instructions: Antibiotic Form, Fall Prevention (ED), Knee Immobilizer (ED) <Elaine Buchanan APRN - Last Filed: 09/22/24 13:39> Additional Instructions: Home medications for pain control. Knee immobilizer for comfort. Continue to use your walker for limited weight-bearing on the affected knee. Have close follow-up with your primary care physician. If you have any worsening symptoms then please call or return to the emergency department. <Elaine Buchanan APRN - Last Filed: 09/22/24 13:39> Patient Language: Sudanese <Elaine Buchanan APRN - Last Filed: 09/22/24 13:39> Prescriptions: No Action amoxicillin-pot clavulanate 875-125 mg tablet 1 tablet PO BID Qty: 20 0RF tizanidine 4 mg tablet albuterol sulfate [Ventolin HFA] 90 mcg/actuation HFA aerosol inhaler 1 inh inhalation Q4H PRN (Reason: shortness of breath or wheezing) Qty: 8.5 11RF amlodipine 10 mg tablet 10 mg PO DAILY Qty: 30 11RF budesonide-formoterol 160-4.5 mcg/actuation HFA aerosol inhaler See Rx Instructions .ROUTE .COMPLEX Qty: 30.6 11RF Dose Instruction: INHALE 2 PUFFS BY MOUTH EVERY 12 HOURS Rx Instructions: INHALE 2 PUFFS BY MOUTH EVERY 12 HOURS Trulicity 0.75 mg/0.5 mL pen injector 0.75 mg SUBCUT WEEKLY Qty: 2 11RF glipizide 10 mg tablet 10 mg PO BID Qty: 60 11RF insulin glargine [Basaglar KwikPen U-100 Insulin] 100 unit/mL (3 mL) insulin pen 45 unit subcut QPM Qty: 15 11RF (DME) pen needle, diabetic [BD Zeenat 2nd Gen Pen Needle] 32 gauge x 5/32 needle MISCELLANEOUS Qty: 100 5RF Rx Instructions: As directed metformin 500 mg tablet 1,000 mg PO BID Qty: 120 11RF (DME) lancets Misc See Rx Instructions .Route Qty: 300 12RF Rx Instructions: True Metrix lancets use TID losartan 100 mg tablet 100 mg PO DAILY Qty: 90 3RF Nexlizet 180-10 mg tablet 1 tablet PO DAILY Qty: 30 6RF hydrochlorothiazide 12.5 mg tablet 12.5 mg PO DAILY Qty: 30 11RF montelukast 10 mg tablet 10 mg PO DAILY Qty: 30 11RF duloxetine 30 mg capsule,delayed release(DR/EC) 30 mg PO DAILY Qty: 30 1RF Rx Instructions: with food <Elaine Buchanan APRN - Last Filed: 09/22/24 13:39> Follow-up/Referrals: Cony Watson MD [Primary Care Provider] - <Elaine Buchanan APRN - Last Filed: 09/22/24 13:39>
[2024-09-22] MEDS: KETOROLAC (*BKC) 60 MG/2 ML VIAL IM (14:39)
[2024-09-22 14:40] VITALS: BP 169/76; PULSE 85; RESP 14; O2SAT 97
--- OUTSIDE RECORDS SUMMARY | 2024-09-25 13:26 | XMS_ITS | Clinical Summary ---
Author Organization [facility] [address] Address [address] [place] [address] Care Team Providers Care Director Of It Operations Name Role Phone Anand Mendenhall DO Primary Care Provider [phone] Allergies Active Allergy Reactions Criticality Noted Date Comments Glfgmlf-Mqa-Xxs Reductase Inhibitors Muscle Pain Low 09/17/2022 Tetracycline Nausea and Vomiting Low 06/26/2022 Medications glipiZIDE (GLUCOTROL) 10 mg tablet Take 10 mg by mouth daily with breakfast. Active empagliflozin-metformin (Synjardy XR) 12.5-1,000 mg tablet, IR & ER, biphasic 24hr Take 1 Tablet by mouth 2 times daily. Active cycloSPORINE (RESTASIS) 0.05 % emulsion Restasis 0.05 % eye drops in a dropperette INSTILL 1 DROP TWICE DAILY BOTH EYES Active True Metrix Glucose Test Strip Strip USE 4-5 TIMES A DAY 022 Active insulin glargine (LANTUS) 100 unit/mL pen syringeIndications:40-4 5 units Inject 45 Units by subcutaneous injection daily at bedtime. Active dulaglutide (Trulicity) 1.5 mg/0.5 mL injection Inject 1.5 mg by subcutaneous injection every 7 days. Active albuterol (PROVENTIL,VENTOLIN) 2.5 mg /3 mL (0.083 %) Solution for NebulizationIndications :Mild intermittent asthma without complication Take 3 mL (2.5 mg) by inhalation every 6 hours as needed for Shortness of Breath. 60 mL 1 022 Active albuterol sulfate 90 mcg/Actuation inhaler Take 2 Puffs by inhalation every 6 hours as needed for Shortness of Breath. Active amLODIPine (NORVASC) 10 mg tabletIndications:Essen tial hypertension TAKE 1 TABLET(10 MG) BY MOUTH DAILY 90 Tablet 3 023 Active lancetsIndications:Type 2 diabetes mellitus without complication, with long-term current use of insulin ([facility]) True Metrix Use 4-5 times per day 100 Each 3 023 Active ezetimibe (ZETIA) 10 mg tabletIndications:Pure hypercholesterolemia TAKE 1 TABLET BY MOUTH EVERY DAY FOR HIGH AMOUNT OF FATS IN THE BLOOD 100 Tablet 024 Active hydroCHLOROthiazide 12.5 mg tabletIndications:Essen tial hypertension TAKE 1 TABLET(12.5 MG) BY MOUTH DAILY 100 Tablet 024 Active losartan (COZAAR) 100 mg tabletIndications:Pure hypercholesterolemia Take 1 Tablet (100 mg) by mouth daily. 100 Tablet 024 Active montelukast (SINGULAIR) 10 mg tabletIndications:Mild intermittent asthma without complication Take 1 Tablet (10 mg) by mouth daily. 100 Tablet 024 Active Active Problems Patient Care Coordination No te Formatting of this note migh t be different from the original. Dr Lanier Transplant Coordinator Annual Medicare Exam 06/26/2022, 03/26/2023 Problem Noted Date Diagnosed Date Current mild episode of manjeet r depressive disorder without prior episode 09/25/2022 Type 2 diabetes mellitus wit hout complication, with long-term current use of insulin 06/26/2022 Essential hypertension 06/26/2022 Pure hypercholesterolemia 06/26/2022 Statin myopathy 06/26/2022 Mild intermittent asthma without complication Colon polyps 06/26/2022 Overview (07/06/2022): Adenomas 07/25 Severe obesity (BMI 35.0-39.9) with comorbidity 06/26/2022 Encounters Date Type Department Care Team Description 07/03/2024 Orders Only [facility] Primary Care [address] [place] [address] Anand Mendenhall DO Type 2 diabetes mellitus without complication, with long-term current use of insulin from Last 3 Months Immunizations Immunization Administration Dates Next Due (PREVNAR 20)(6 WKS UP) PNEUM OCOCCAL CONJUGATE VACCINE 20-VALENT (PCV20), POLYSACCHARIDE [id number] CONJUGATE, ADJUVANT 0.5 ML (PF) IM 09/25/2022 INFLUENZA VACCINE QUADRIVALENT ADJ 65 YR UP PF I M 06/14/2021 Family History Medical History Relation Name Comments COPD Mother Diabetes Mother Hypertension Mother Colon Cancer Neg Hx Relation Name Status Comments Father Mother Social History Tobacco Use Types Packs/Day Years Used Date Smoking Tobacco: Former Cigarettes 2 30 0 09/03/1961 - 09/03/1991 Passive Smoke Exposure: Never Smokeless Tobacco: Never Tobacco Cessation:Counseling Given: Not Answered Alcohol Use Standard Drinks/Week Comments Not Currently 0 (1 standard drink = 0.6 oz pur e alcohol) Financial Resource Strain Answer Date R ecorded How hard is it for you to pa y for the very basics like food, housing, medical care, and heating? Not hard at all 09/25/2022 Food Insecurity Answer Date Recorded In the past 12 months, have you worried that your food would run out before you had money to buy more? Never true 09/25/2022 In the past 12 months, did y ou run out of food and didn't have money to buy more? Never true 09/25/2022 Transportation Needs Answer Date Record ed In the past 12 months, has l ack of transportation kept you from medical appointments or from getting medications? No 09/25/2022 Lack of Transportation (Non-Medical) Not on file 09/25/2022 Comments No Sex and Gender Information Value Date Recorded Sex Assigned at Not on file Legal Sex Female 11:01 AM CDT Gender Identity Not on file Sexual Orientation Not on file Last Filed Vital Signs Vital Sign Reading Time Taken Comments Blood Pressure 120/80 03/26/2023 10:14 AM CDT Pulse 93 03/26/2023 10:14 AM CDT Temperature 36.5 ??C (97.7 ??F) 03/26/2023 10:14 AM C DT Respiratory Rate 18 07/04/2022 12:40 PM CDT Oxygen Saturation 95% 03/26/2023 10:14 AM CDT Inhaled Oxygen Concentration - - Weight 101.6 kg (224 lb) 03/26/2023 10:14 AM CDT Height 162.6 cm (5' 4 ) 03/26/2023 10:14 AM CDT Body Mass Index 38.45 03/26/2023 10:14 AM CDT Plan of Treatment Health Maintenance Due Date Last Done Comments DIABETES ANNUAL RETINAL EXAM 01/28/1972 DTAP/TDAP/TD VACCINES (1 - Tdap) 1973 FIT-DNA Q 3 years 1999 FIT/FOBT Q 1 year 1999 Flex Sig/CT Colonography Q 5 years 1999 ZOSTER VACCINE (1 of 2) 01/28/2004 RSV VACCINE (60+ or ) (1 - Risk 60-74 years 1-dose series) 2014 BREAST CANCER SCREENING 12/29/2022 12/29/2021 DIABETES ANNUAL FOOT EXAM 06/26/2023 06/26/2022 DIABETES MICROALBUMIN ANNUAL SCREEN 07/05/2023 07/05/2022 DIABETES HBA1C Q 6 MONTHS 09/26/2023 03/26/2023, 10/2021 DIABETES: A1C (Auto Order) 03/26/2024 03/26/2023, LDL CHOLESTEROL ANNUAL 03/26/2024 03/26/2023, 2021 INFLUENZA VACCINE (#1) 2024 06/14/2021 COVID-19 Vaccine (2023-2 5 season) 2024 12/20/2021, 12/15/2020, 11/22/2020 KHE eGFR (Auto Order) 09/03/2024 03/26/2023 , 03/26/2023, 07/05/2022, Additional history exists KHE uACR (Auto Order) 09/03/2024 07/06/2022, 022 Medicare Advantage (PR) Preventative Visit/Annual Wellness Visit 09/03/2024 03/26/2023, 06/26/2022 COLORECTAL SCREENING 07/04/2025 07/04/2022, 07/04/2022, 07/04/2022, Additional history exists Colorectal Cancer Screening 07/04/2025 OSTEOPOROSIS SCREENING Completed 09/01/2020 PNEUMOCOCCAL VACCINE 65+ YEARS Completed 09/25/2022 Procedures Procedure Name Priority Date/Time Associated Diagnosis Comments COMPREHENSIVE METABOLIC PANEL Routine 03/26/2023 11:09 AM CDT Essential hypertension LIPID PANEL Routine 03/26/2023 11:09 AM CDT Pure hypercholesterolemia HEMOGLOBIN A1C Routine 03/26/2023 11:09 AM CDT Type 2 diabetes mellitus without complication, with long-term current use of insulin ([facility]) MICROALBUMIN/CREATI NINE RATIO, RANDOM UR Routine 07/05/2022 12:41 PM CDT Type 2 diabetes mellitus without complication, with long-term current use of insulin ([facility]) COLONOSCOPY REPORT 07/04/2022 12:15 PM CDT MAMMO 3D MARCIAL SCREEN BILAT W OR WO CAD Routine 12/29/2021 from Last 3 Months or Most Recently Relevant to Health Maintenance Results * (ABNORMAL) HEMOGLOBIN A1C (03/26/2023 11:09 AM CDT) HEMOGLOBIN A1C 6.8(H) <5.7 % of total Hgb [facility] gerardo Moraes Comment: For someone without known diabetes, a hemoglobin A1c value of 6.5% or greater indicates that they may have diabetes and this should be confirmed with a follow-up test. For someone with known diabetes, a value <7% indicates that their diabetes is well controlled and a value greater than or equal to 7% indicates suboptimal control. A1c targets should be individualized based on duration of diabetes, age, comorbid conditions, and other considerations. Currently, no consensus exists regarding use of hemoglobin A1c for diagnosis of diabetes for children. ?? ESTIMATED AVERAGE GLUCOSE (MG/DL) 148 mg/dL [facility] gerardo Moraes ESTIMATED AVERAGE GLUCOSE (MMOL/L) 8.2 mmol/L [facility] gerrado Moraes Comment: FASTING:YES FASTING: YES Test Performed at: [facility] [address] [place] ??[phone] Lloyd Strong Blood 03/26/2023 11:0 9 AM CDT 03/26/2023 11:09 AM CDT us Jsoe R Peck MD CHEMISTRY ORDERABLES Final Resul t [facility] [phone] [place] [address] [place] [address] * (ABNORMAL) LIPID PANEL (03/26/2023 11:09 AM CDT) [facility] CHOLESTEROL 155 <200 mg/dL [facility] gerardo Moraes HDL 43(L) > OR = 50 mg/dL [facility] Moraes TRIGLYCERIDE 181(H) <150 mg/dL [facility] LDL CALCULATED 84 mg/dL (calc) [facility] Comment: Reference range: <100 Desirable range <100 mg/dL for primary prevention; ?? <70 mg/dL for patients with CHD or diabetic patients with > or = 2 CHD risk factors. LDL-C is now calculated using the Andres calculation, which is a validated novel method providing better accuracy than the Friedewald equation in the estimation of LDL-C. Cameron MARCIAL et al. LYLE. 2013;310(19): 9904-3231 (http://education.[employer]faq/KUL154) CHOL/HDL RATIO 3.6 <5.0 (calc) [facility] carrillo Dimitry TOTAL NON-HDL CHOL(LDL+VLDL) 112 <130 mg/dL (calc) [facility] Dimitry Comment: For patients with diabetes plus 1 major ASCVD risk factor, treating to a non-HDL-C goal of <100 mg/dL (LDL-C of <70 mg/dL) is considered a therapeutic option. FASTING:YES FASTING: YES Test Performed at: [facility] [place] [address] [place] ??[address] LenyVivianMarlene Villavicencio Blood 03/26/2023 11:0 9 AM CDT 03/26/2023 11:09 AM CDT us Jose R Peck MD CHEMISTRY ORDERABLES Final Resul t [facility] [phone] [place] [address] [place] [address] * (ABNORMAL) COMPREHENSIVE METABOLIC PANEL (03/26/2023 11:09 AM CDT) GLUCOSE 140(H) 65 - 99 mg/dL [facility] Comment: ? Fasting reference interval For someone without known diabetes, a glucose value >125 mg/dL indicates that they may have diabetes and this should be confirmed with a follow-up test. BUN 20 7 - 25 mg/dL [facility] CREATININE 0.54 0.50 - 1.05 mg/dL [facility] GFR 100 > OR = 60 mL/min/1 .73m2 [facility] Comment: The eGFR is based on the CKD-EPI 2020 equation. To calculate the new eGFR from a previous Creatinine or Cystatin C result, go to https://www.kidney.org/professionals/ kdoqi/gfr%5Fcalculator BUN/CREAT RATIO NOT APPLICABLE 6 - 22 (calc) [facility] SODIUM 135 135 - 146 mmol/L [facility] POTASSIUM 4.7 3.5 - 5.3 mmol/L [facility] CHLORIDE 100 98 - 110 mmol/L [facility] CO2 27 20 - 32 mmol/L [facility] CALCIUM 10.3 8.6 - 10.4 mg/dL [facility] TOTAL PROTEIN 7.5 6.1 - 8.1 g/dL [facility] ALBUMIN 4.3 3.6 - 5.1 g/dL [facility] GLOBULIN 3.2 1.9 - 3.7 g/dL (calc) [facility] ALBUMIN/GLOBULIN RATIO 1.3 1.0 - 2.5 (calc) [facility] BILIRUBIN TOTAL 0.4 0.2 - 1.2 mg/dL [facility] ALKALINE PHOSPHATASE 76 37 - 153 U/L [facility] AST 18 10 - 35 U/L [facility] ALT 26 6 - 29 U/L [facility] Comment: FASTING:YES FASTING: YES Test Performed at: [facility] [address] [place] ??[address] Leny-Marlene Thi Vo Blood 03/26/2023 11:0 9 AM CDT 03/26/2023 11:09 AM CDT us Jose R Peck MD CHEMISTRY ORDERABLES Final Resul t Performing Organization Address City/[facility]/ZIP Code Phone Number [facility] [phone] [facility] [address] [place] [address] * MICROALBUMIN/CREATININE RATIO, RANDOM UR (07/05/2022 12:41 PM CDT) Creatinine, Urine 35 20 - 275 mg/dL [facility] MICROALBUMIN, URINE 0.6 See Note: mg/dL [facility] Comment: Reference Range: Reference Range Not established MICROALBUMIN/CREAT RATIO, UR 17 <30 mcg/mg creat [facility] Comment: The ADA defines abnormalities in albumin excretion as follows: Albuminuria Category ?Result (mcg/mg creatinine) Normal to Mildly increased ?? <30 Moderately increased ? 30-299 Severely increased ? > OR = 300 The ADA recommends that at least two of three specimens collected within a 3-6 month period be abnormal before considering a patient to be within a diagnostic category. FASTING:NO FASTING: NO Test Performed at: [facility] [address] [place] [address] ??[phone] Nithin López D.O., MPH Urine URINE SPECIMEN OBTAINED BY CLEAN CATCH PROCEDURE / Unknown 07/05/2022 12:41 PM CDT 07/05/2022 12:41 PM CDT us Jose R Peck MD URINE ORDERABLES Final Result Performing Organization Address City/State/ZIP Co sd Phone Number [facility] [phone] [facility] [address] [place] [address] * COLONOSCOPY REPORT (07/04/2022 12:15 PM CDT) Narrative Procedure Note Yadira Corea DO - 07/04/2022 12:14 PM CDT [facility] Endoscopy Patient Name: Emy Fischer Procedure Date: 07/04/2022 Date of : 1955 Attending MD: Yadira Corea MD, Procedure: Colonoscopy Indications: High risk colon cancer surveillance: Personal history of colonic polyps, Last colonoscopy was done in 2011. Pt reports having 3 or 4 previous colonoscopy procedures for history of colon polyps. Providers: Yadira Corea MD Referring MD: Medicines: Monitored Anesthesia Care Complications: No immediate complications. Procedure: Informed consent was obtained for the procedure, including moderate sedation after risks were discussed. Based on the pre-procedure assessment, including review of the patient's medical history, medications, allergies, and review of systems, the patient was deemed to be an appropriate candidate for sedation. A timeout was performed. Continuous ECG monitoring, pulse oximetry, blood pressure monitoring, and direct observation were performed. The Colonoscope was introduced through the anus and advanced to the terminal ileum. The colonoscopy was performed without difficulty. The patient tolerated the procedure well. The quality of the bowel preparation was good. Anatomical landmarks were photographed. Estimated Blood Loss: Estimated blood loss was minimal. Findings: The perianal examination was normal. A 7 mm polyp was found in the cecum. The polyp was sessile. The polyp was removed with a cold snare. Resection and retrieval were complete. Estimated blood loss was minimal. A 6 mm polyp was found in the cecum. The polyp was sessile. The polyp was removed with a cold snare. Resection and retrieval were complete. Estimated blood loss was minimal. A 10 mm polyp was found in the ascending colon. The polyp was sessile. The polyp was removed with a cold snare. Resection and retrieval were complete. Estimated blood loss was minimal. A 30 mm polyp was found in the hepatic flexure. The polyp was sessile. The polyp was removed with a hot snare. The polyp was removed with a saline injection-lift technique using a hot snare. The polyp was removed with a piecemeal technique using a hot snare. Resection and retrieval were complete. A 20 mm polyp was found in the hepatic flexure. The polyp was pedunculated. The polyp was removed with a hot snare. Resection and retrieval were complete. Estimated blood loss was minimal. A 7 mm polyp was found in the rectum. The polyp was sessile. The polyp was removed with a cold snare. Resection was complete, but the polyp tissue was not retrieved. Estimated blood loss was minimal. Multiple diverticula were found in the sigmoid colon, descending colon and transverse colon. The terminal ileum appeared normal. Non-bleeding hemorrhoids were found during retroflexion. A tattoo was seen in the sigmoid colon. A single small localized angioectasia without bleeding was found in the ascending colon. Non-bleeding hemorrhoids were found during retroflexion. Impression: - One 7 mm polyp in the cecum, removed with a cold snare. Resected and retrieved. - One 6 mm polyp in the cecum, removed with a cold snare. Resected and retrieved. - One 10 mm polyp in the ascending colon, removed with a cold snare. Resected and retrieved. - One 30 mm polyp at the hepatic flexure, removed with a hot snare, removed using injection-lift and a hot snare and removed piecemeal using a hot snare. Resected and retrieved. - One 20 mm polyp at the hepatic flexure, removed with a hot snare. Resected and retrieved. - One 7 mm polyp in the rectum, removed with a cold snare. Complete resection. Polyp tissue not retrieved. - Diverticulosis in the sigmoid colon, in the descending colon and in the transverse colon. - The examined portion of the ileum was normal. - Non-bleeding hemorrhoids. - A tattoo was seen in the sigmoid colon. - A single non-bleeding colonic angioectasia. - Non-bleeding hemorrhoids. Recommendation: - Await pathology results. - Repeat colonoscopy in 3 years for surveillance. - High fiber diet. - Avoid ASA, NSAIDs such as ibuprofen including but not limited to Motrin, Advil, Aleve and other antiplatelet or anticoagulants X one week. Notify Dr. Corea if there is any rectal bleeding. Follow Up with biopsy results in one week. You may call the office at . Yadira Corea MD 07/04/2022 12:14:00 PM This report has been signed electronically. Number of Addenda: [address]; [place] [address] us Yadira Corea DO GI PROCEDURE ORDERABLES Fin al Result * (ABNORMAL) MAMMO SCRN BILAT 3D MARCIAL W OR WO CAD (12/29/2021) Anatomical Region Laterality Modality Breast Bilateral Other us Abstract Provider MAMMO ORDERABLES Edited Result - Final from Last 3 Months or Most Recently Relevant to Health Maintenance Insurance AENA [id number] [facility] MCR Advance Directives For more information, please contact: [phone] * Full Code (Latest Code Status on File) Date Activated Date Inactivated Comments 07/04/2022 10:26 AM 07/04/2022 4:37 PM Care Teams Director Of It Operations Relationship Specialty Start Date End Date Anand Mendenhall DO [address] [place] [id number] PCP - General Family Practice 11/22/23
--- OUTSIDE RECORDS SUMMARY | 2024-09-25 13:26 | XMS_ITS | Continuity of Care Document ---
Author Organization [facility] Address [address] [place] [address] Phone Care Team Providers Care Online Communications Manager Name Role Phone Alvaro Park MD Unavailable Unavailable Allergies, Adverse Reactions, Alerts Substance Reaction Status [...] visit,est, mod [facility], [address], [place], [place], [id number], [place] tel:[phone] [facility] FX FOOT BONE NEC-CLOSED Vivian John. [address] [facility], [place] [address], [place], [place], [id number], [place]. tel:[phone] Office/outpat ient visit,est, mod [facility], [address] [place] [address], [id number], tel:[phone] [facility] JOINT PAIN-ANKLEF X FOOT BONE NEC-CLOSED Katarzynagris John. [address] [place] [address], [place] [address], [place], [place], [id number], [place]. tel:[phone] Office consultation, moderate [facility], [address] [place] [address], [id number], tel:[phone] [facility] JOINT PAIN-ANKLEF X FOOT BONE NEC-CLOSED Katarzynagris John. [address] [place] [address], [id number], [place]. tel:[phone] Family History Family Member Type Diagnosis Age At Onset No Information Immunizations Vaccine Date Status Comments Flu (split) (3 yrs or older) administered Source: Other Provider Payers Payer name Insurance type Covered alliance party ID Sona portillo(sKeyla Conrad [facility] [id number] Social History Type Description Quantity Date Captured [...]
--- OUTSIDE RECORDS SUMMARY | 2024-09-25 13:26 | XMS_ITS | Clinical Summary ---
Author Organization [facility] Address [address] [place] [address] Care Team Providers Care Combat Systems Engineer Name Role Phone Carter Del Cid MD Unavailable Esequiel Palmer MD Unavailable Pawan Severino MD Unavailable Jose R Peck MD Primary Care Provider [phone] Source Comments [facility],non-owned Affiliates and Associated Physician Practices is amultiple site organization consisting of ambulatory clinics and hospital sitesin [place], [place], [place] and [place]. This disclosure is being madepursuant to the Care Everywhere program and may not contain all information available regarding this patient. Last updated 18.[facility] Allergies Active Allergy Reactions Criticality Noted Date Comments Hmg-Coa-R Inhibitors Myalgias 06/14/2021 Tetracycline 12/15/2008 GI Upset Medications * Be aware that medications may not be up to date on this document. Alwaysverify current medications with the patient. Medication Sig Dispensed Refills Start Date End Date Status aspirin 81 MG tablet Take 1 (one) tablet by mouth once daily Active multivitamin daily (THERAGRAN) tablet Take 1 (one) tablet by mouth daily with food Active cycloSPORINE (RESTASIS) 0.05 % ophthalmic suspension Instill 1 drop into both eyes 2 times daily 1 Each 2 0 Active diclofenac sodium EC (VOLTAREN) 50 MG tablet 1 Active traMADol (ULTRAM) 50 MG tablet Take 1 (one) tablet by mouth every 6 hours as needed pain 1 Active budesonide-formot jose (SYMBICORT) 160-4.5 MCG/ACT inhaler Inhale 2 (two) puffs by mouth 2 times daily Brand name only no generic 3 g 4 1 Active montelukast (SINGULAIR) 10 MG tablet Take 1 (one) tablet by mouth once daily 90 tablet 4 1 Active VENTOLIN HFA 108 (90 Base) MCG/ACT inhaler Inhale 2 (two) puffs by mouth every 6 hours as needed 1 g 5 1 Active albuterol (PROVENTIL;VENTOL IN) (2.5 MG/3ML) 0.083% nebulizer solution Inhale 2.5 (two and one-half) mg by mouth 3 times daily 230 mL 3 1 Active amLODIPine (NORVASC) 10 MG tablet TAKE 1 TABLET BY MOUTH EVERY DAY 90 tablet 1 2 Active hydroCHLOROthiazi de (HYDRODIURIL) 12.5 MG TAKE 1 TABLET BY MOUTH EVERY DAY 90 tablet 1 2 Active tiZANidine (ZANAFLEX) 4 MG tablet Take 1 (one) tablet by mouth nightly as needed for Muscle Spasms 90 tablet 2 Active losartan (COZAAR) 100 MG tablet TAKE 1 TABLET BY MOUTH EVERY DAY 90 tablet 1 2 Active Basaglar KwikPen (BASAGLAR) penIndications:Un controlled type 2 diabetes mellitus with hyperglycemia (HCC) Inject 20 (twenty) Units to 40 (forty) Units subcutaneously once daily 2 Active ezetimibe (Zetia) 10 MG tabletIndications :Hyperlipidemia Take 1 (one) tablet by mouth once daily Reasons: High Amount of Fats in the Blood 90 tablet 1 3 Active Trulicity 1.5 MG/0.5ML injectionIndicati ons:Uncontrolled type 2 diabetes mellitus with hyperglycemia (HCC) INJECT 1.5 MG (0.5ML) UNDER THE SKIN ONCE A WEEK 8 mL 2 4 Active evolocumab (Repatha) 140 MG/ML auto-injectorIndi cations:Type 2 diabetes mellitus with hyperglycemia, with long-term current use of insulin ([facility]) Inject 140 (one hundred forty) mg subcutaneously every 14 days 6 mL 1 4 Active TRUEplus Lancets 33G MISCIndications:T ype 2 diabetes mellitus with hyperglycemia, with long-term current use of insulin ([facility]) TEST TWICE DAILY 200 Each 5 4 Active rosuvastatin (Crestor) 5 MG tablet TAKE 1 TABLET BY MOUTH ON SUNDAY, SUNDAY, AND Fridays 4 Active glipiZIDE (Glucotrol) 10 MG tabletIndications :Type 2 diabetes mellitus with hyperglycemia, with long-term current use of insulin ([facility]) Take 1 (one) tablet by mouth daily before dinner T 90 tablet 1 4 Active BD Pen Needle Zeenat U/F 32G X 4 MM MISCIndications:T ype 2 diabetes mellitus with hyperglycemia, with long-term current use of insulin ([facility]) Use 1 Each once daily 200 Each 5 4 Active blood glucose (True Metrix Blood Glucose Test) test stripIndications: Type 2 diabetes mellitus without complication, with long-term current use of insulin ([facility]) Use 1 (one) strip twice daily, before breakfast & at bedtime. 200 strip 1 4 Active Blood Glucose Monitoring Suppl (OneTouch Verio) w/Device KITIndications:Ty pe 2 diabetes mellitus without complication, with long-term current use of insulin ([facility]) Use 1 device twice daily, before breakfast & at bedtime. 1 kit 1 4 Active Lancets (ONETOUCH DELICA PLUS 33G EXTRA FINE LANCET)Indication s:Type 2 diabetes mellitus with hyperglycemia, with long-term current use of insulin ([facility]) Use 1 Each twice daily, before breakfast & at bedtime. 200 Each 2 4 Active OneTouch Verio test stripIndications: Type 2 diabetes mellitus without complication, with long-term current use of insulin ([facility]) USE 1 STRIP TWICE DAILY BEFORE BREAKFAST AND AT BEDTIME. 200 strip 1 5 Active blood glucose (OneTouch Verio) test stripIndications: Type 2 diabetes mellitus without complication, with long-term current use of insulin (HCC) Use 1 (one) strip twice daily, before breakfast & at bedtime. 200 strip 1 4 09/19/19 25 Discontinued Active Problems Problem Noted Date Diagnosed Date Class 2 severe obesity due t o excess calories with serious comorbidity and body mass index (BMI) of 36.0 to 36.9 in adult 03/21/2024 Severe episode of recurrent major depressive dis order 12/15/2021 Overview (12/15/2021): 11/10/20 Long-term insulin use 04/19/2020 Overview (04/19/2020): PMH Chronic bilateral low back pain without sciatica 06/25/2019 Asthma-COPD overlap syndrome 06/10/2019 Overview (07/13/2020): 01/29/20 Krystal Rainey MD Family Medicine Mild episode of recurrent major depressive disor sukhwinder 04/29/2019 Overview (12/15/2021): Krystal Rainey MD 06/14/21 Chronic pain syndrome 04/29/2019 Overview (04/29/2019): continue gabapentin. refer to pain management SIMRAN (obstructive sleep apnea) 08/01/2018 Allergic rhinitis 12/05/2012 Hyperlipidemia 08/03/2011 HTN (hypertension) 01/10/2011 Type 2 diabetes mellitus wit hout complication, with long-term current use of insulin 05/24/2009 Overview (07/13/2020): 01/29/20 Krystal Rainey MD Family Medicine Obesity 05/24/2009 OA (osteoarthritis) 05/24/2009 Insomnia 12/15/2008 Resolved Problems Problem Noted Date Diagnosed Date Resolved Date Type 2 diabetes mellitus wit h diabetic nephropathy, without long-term current use of insulin 02/23/2022 03/21/2024 Overview (02/23/2022): 07/26/21 Esequiel Palmer MD Ov Type 2 diabetes mellitus with hyperglycemia 12/15/2021 12/20/2021 Overview (12/15/2021): Esequiel Palmer MD 07/26/21 Uncontrolled type 2 diabetes mellitus with hyperglycemia 04/19/2020 12/20/2021 Overview (10/07/2020): 07/21/20 Esequiel Palmer MD Endocrinology Morbid obesity with BMI of 40.0-44.9, adult 04/29/2019 11/22/2020 Screening for osteoporosis 12/05/2012 0 04/29/2019 S/P colonoscopic polypectomy 08/03/2011 04/29/2019 Overview (08/03/2011): 3 Dr. Bloom Screening for breast cancer 08/03/2011 04/29/2019 Overview (06/03/2017): IMO Update 06/03/2017 Asthma 07/25/2011 06/10/2019 Diabetic eye exam 01/10/2011 04/29/2019 Overview (01/10/2011): 2-1-11 Injury, other and unspecifie d, hand, except finger 03/23/2010 04/29/2019 Hypertension 12/15/2008 11/30/2009 Non-insulin dependent type 2 diabetes mellitus 12/15/2008 12/05/2012 Overview (12/15/2008): Dialated Eye Exam: 11/2003, 12/2003, 06/2006 Post menopausal syndrome 12/15/2008 Screening for condition 12/15/200804/04 Overview (06/03/2015): Adult Abstraction Problem List Screening Dexa Scan (Bone Density): Result: WNL (great for age) Repeat in 5 yrs Date: 01/25/2004 Colonoscopy: Result: Not avail in chart Date: 11/01/2007, Dr. Bloom Pap Smear: Result: WNL Date: 02/28/2006 Mammogram: Result: WNL Date: 01/25/2004 Encounters Date Type Department Care Team Description 09/19/2024 Refill [facility] - Endocrinology [address] [place] [address], [address] [phone] Esequiel Palmer MD Refill Request from Last 3 Months Immunizations Name Administration Dates Next Due Covid Pfizer primary monoval ent 12+ yr 0.3mL Purple cap 12/20/2021,12/15/2020,11/22/2020 INFLUENZA VACCINE 07/04/2012,09/03/2007,09/03/19 07 INFLUENZA VACCINE, ADJUVANTE D, QUADR. (FLUAD QUADRIVALENT; 65Y+) (AIIV4) 06/14/2021 INFLUENZA VACCINE, HIGH-DOSE , QUADR. (FLUZONE HIGH-DOSE QUADRIVALENT; 65Y+), 0.7 ML (HD-IIV4) 07/30/2019 INFLUENZA VACCINE, QUADR. (A FLURIA, FLUZONE QUADRIVALENT; 6MO+) (IIV4) 06/03/2014 PNEUMOCOCCAL PPSV23 09/03/2003 TD (ADULT), 5 LF TETANUS TOX OID, ADSORBED, PF 12/10/2014 TDAP (7yrs+) 12/05/2012 ZOSTER VACCINE, LIVE 04/08/2012 Family History Medical History Relation Name Comments Diabetes - Type 2 Brother Diabetes - Type 2 Mother Heart Failure Mother Breast Cancer at or under age 50 Sister Diabetes - Type 2 Sister Relation Name Status Comments Brother Mother Sister Social History Tobacco Use Types Packs/Day Years Used Date Smoking Tobacco: Former Cigarettes Q uit: 1989 Smokeless Tobacco: Never Tobacco Cessation:Counseling Given: Not Answered Comments:Quit in 1989 Alcohol Use Standard Drinks/Week Comments No 0 (1 standard drink = 0.6 oz pur e alcohol) PHQ-2 Answer Date Recorded PHQ2 TOTAL SCORE 6 12/20/2021 Sex and Gender Information Value Date Recorded Sex Assigned at Not on file Gender Identity Not on file Sexual Orientation Not on file Last Filed Vital Signs Vital Sign Reading Time Taken Comments Blood Pressure 130/70 03/21/2024 11:14 AM CDT Pulse 79 03/21/2024 11:14 AM CDT Temperature 36.4 ??C (97.5 ??F) 09/15/2022 10:[address] Respiratory Rate 14 12/20/2021 10:22 AM CDT Oxygen Saturation 95% 03/21/2024 11:14 AM CDT Inhaled Oxygen Concentration 21% 06/06/2019 1 1:00 AM CDT Weight 102.1 kg (225 lb) 03/21/2024 11:14 AM CDT Height 167.6 cm (5' 6 ) 03/21/2024 11:14 AM CDT Body Mass Index 36.32 03/21/2024 11:14 AM CDT Plan of Treatment Health Maintenance Due Date Last Done Comments COLOGUARD (AGES 45-75) - COLON CA SCREENING 1954 CT COLONOGRAPHY - COLON CA SCREENING 1955 FIT - COLON CA SCREENING 1955 FLEX SIG - COLON CA SCREENING 1955 PNEUMOCOCCAL VACCINE 50+ (2 of 2 - PCV) 09/03/2004 09/03/2003 ZOSTER VACCINE (2 of 3) 06/03/2012 04/08/2012 Respiratory Syncytial Virus (RSV) Vaccine Pt: or over 60 yrs (1 - Risk 60-74 years 1-dose series) 2014 COLON MONITORING 07/05/2017 07/05/2012, 11/01/2007 Colorectal Cancer Screening 07/05/2017 COLONOSCOPY - COLON CA SCREENING 07/05/2022 07/05/2012, 11/01/2007, 01/28/2004 BONE DENSITY TESTING 09/01/2022 09/01/2020, 05/29/2014, 12/01/2009 DIABETES RETINOPATHY SCREENING 10/26/2022 10/26/2020, 12/05/2010 MAMMOGRAM 12/30/2023 12/29/2021, 0404/2022, 09/01/2020, Additional history exists COVID-19 VACCINE ( season) 2024 12/20/2021, 12/15/2020, 11/22/2020 INFLUENZA VACCINE (#1) 2024 , 07/30/2019, 06/03/2014, Additional history exists DEPRESSION SCREENING 09/03/2024 03/14/2022 DIABETES - URINE PROTEIN SCREENING 09/03/2024 12/21/2023, 03/14/2022, 01/20/2021, Additional history exists MEDICARE AWV ? CALENDAR YEAR 2024 12/20/2021, 11/10/2020 DIABETES-HGB A1C 09/21/2024 03/21/2024, , 07/11/2023, Additional history exists DTAP/TDAP/TD VACCINES (3 - Td or Tdap) 12/10/2024 12/10/2014, 12/05/2012 DIABETES-SERUM CREATININE 12/20/20242023, 03/14/2022, 01/20/2021, Additional history exists DIABETES-FOOT EXAM WITH MONOFILAMENT 03/21/2025 03/21/2024, 12/05/2012, 04/08/2012 HEPATITIS C SCREENING Completed 12/06/2012, 013 HEPATITIS B VACCINE Aged Out No longe r eligible based on patient's age to complete this topic HIB VACCINE Aged Out No longer eligi ble based on patient's age to complete this topic HPV VACCINE Aged Out No longer eligi ble based on patient's age to complete this topic MENINGOCOCCAL (Group B) VACCINE Aged Out No longer eligible based on patient's age to complete this topic MENINGOCOCCAL VACCINE Aged Out No elias alberto eligible based on patient's age to complete this topic Goals Goal Patient Goal Type Associated Problems Recent Progress Patient-Stated? Author Blood Pressure < 140/90 Blood Pressure 130/70(2023 11:14 AM CDT) No Meg Ann HEMOGLOBIN A1C < 7.0 Result Component 7.9( 0 1:18 PM CDT) No Farhana Carbone Note: Caring for Your Diabetes Tips for Healthy Eating Eating healthy foods are a rene part in managing diabetes. It is especially important because what, how much, and when you eat play a big role in controlling your blood glucose, weight, blood pressure and cholesterol. Some important tips are below: ? ? Eat meals at the same time each day. Don? t skip meals. This will keep your blood glucose levels more level throughout the day and help control hunger. ? ? Eat about the same amount of foods every day, especially carbohydrates. ? ? Use less fat, sugar, salt and alcohol. ? ? Eat a wide variety of foods. This will help fuel your body and make sure you get the right amount of nutrients. ? ? All diabetics should have their own meal plan based on their personal goals, foods they like to eat and their lifestyle. If you need help with developing your meal plan, ask your provider for a referral to see a dietitian. ? ? Maintain a healthy weight through diet and exercise ? ? Blood Sugar - An important part of your diabetes care is knowing your blood sugar. Your blood sugar can and should be monitored regularly, at the discretion of your doctor, in order to make the most of your diabetic care. A printable blood sugar log can be found by following the links below: o Go to www.diabetes.org and click on ? Living with Diabetes.? o Under the [facility], click ? Blood Glucose Testing.? o Click ? Checking Your Blood Glucose,? and this will give you both an online tool and a printable blood glucose log. o The printable blood glucose log can also be accessed here: printable blood glucose log The following resources can help you and the people close to you learn more about diabetes and how to manage your diabetes: ? ? [place] [employer]: www.diabetes.org 2-230-SKXSTREZ ( ) ? ? [place] [employer]-Support group line: www.professional.diabetes.org ? ? [place] [employer]: www.heart.org or 4-740-ITO-[place]-1 ( ) ? ? [employer] MyPlate: www.choosemyplate.gov Procedures Procedure Name Priority Date/Time Associated Diagnosis Comments HEMOGLOBIN A1C - POINT OF CARE (AMB) Routine 03/21/2024 Type 2 diabetes mellitus with hyperglycemia, with long-term current use of insulin (HCC) MICROALB/CREAT RATIO URINE RANDOM PANEL Routine 12/21/2023 10:40 AM CDT Type 2 diabetes mellitus with hyperglycemia, with long-term current use of insulin (HCC) BASIC METABOLIC PANEL (CALCIUM TOTAL) Routine 12/21/2023 10:40 AM CDT Type 2 diabetes mellitus with hyperglycemia, with long-term current use of insulin (HCC) MAMMO BILAT SCREENING W MARCIAL Routine 12/29/2021 10:46 AM CDT Screening mammogram for breast cancer HM DIABETES EYE EXAM Routine 10/26/2020 DEXA BONE DENSITY AXIAL SKELETON Routine 09/01/2020 2:45 PM [facility] Postmenopausal HEPATITIS C ANTIBODY Routine 12/06/2012 1:31 PM CDT Need for hepatitis C screening test ENDOSCOPY, COLON, DIAGNOSTIC Routine 07/05/2012 3:18 PM CDT from Last 3 Months or Most Recently Relevant to Health Maintenance Results * HEMOGLOBIN A1C - POINT OF CARE (HgbA1C) (03/21/2024) Hemoglobin A1c POCT 6.8 % Expiration Date 06/10/2025 Lot # [id number] QC Verified Yes Yes Blood BLOOD SPECIMEN / Unknown 03/21/2024 Esequiel Palmer MD LAB - POINT OF CARE ORDERABLES * MICROALB/CREAT RATIO URINE RANDOM PANEL (12/21/2023 10:40 AM CDT) Creatinine Urine 25.5 Not Estab. mg/dL [facility] INSURANCE BILL Microalbumin Urine <3.0 Not Estab. ug/mL [facility] INSURANCE BILL Microalbumin/Crea tinine Ratio <12 0 - 29 mg/g creat [facility] INSURANCE BILL Comment: ?Normal: ?0 - ??29 ?Moderately increased: 30 - 300 ?Severely increased: ? >300 FASTING Urine URINE SPECIMEN OBTAINED BY CLEAN CATCH PROCEDURE / Unknown 12/21/2023 10:40 AM CDT 12/21/2023 Narrative Resulting Agency Comment Lab Testing performed at: [facility] [address] [facility] ??[facility] [id number] Esequiel Palmer MD LAB - URINE CHEMISTR Y ORDERABLES Performing Organization Address City/[facility]/ZIP Co de Phone Number [facility] INSURANCE BILL [address] [place] [address] * (ABNORMAL) BASIC METABOLIC PANEL (CALCIUM TOTAL) (12/21/2023 10:40 AM CDT) Glucose 87 70 - 99 mg/dL [facility] INSURANCE BILL BUN 20 8 - 27 mg/dL [facility] INSURANCE BILL Creatinine 0.55(L) 0.57 - 1.00 mg/dL [facility] INSURANCE BILL eGFR by CKD-EPI 99 >59 mL/min/1.7 3 [facility] INSURANCE BILL BUN/Creatinine Ratio 36(H) 12 - 28 [facility] INSURANCE BILL Sodium 141 134 - 144 mmol/L [facility] INSURANCE BILL Potassium 4.5 3.5 - 5.2 mmol/L [facility] INSURANCE BILL Chloride 102 96 - 106 mmol/L [facility] INSURANCE BILL CO2 29 20 - 29 mmol/L [facility] INSURANCE BILL Calcium 10.0 8.7 - 10.3 mg/dL [facility] INSURANCE BILL Comment:FASTING Blood BLOOD SPECIMEN / Unknown 12/21/2023 10:40 AM CDT 12/21/2023 Narrative Resulting Agency Comment Lab Testing performed at: [facility] [address] ??[facility] [phone] Esequiel Palmer MD LAB - CHEMISTRY ORDE RABROBERTA Performing Organization Address City/[facility]/ZIP Co de Phone Number [facility] INSURANCE BILL [address] [place] [address] * MAMMO BILAT SCREENING W MARCIAL (12/29/2021 10:46 AM CDT) Anatomical Region Laterality Modality Breast Bilateral Mammography 12/29/2021 11:0 7 AM CDT Impressions 12/29/2021 11:09 AM CDT Annual screening mammography is recommended. OVERALL FINAL ASSESSMENT: BI-RADS CATEGORY 1: NEGATIVE. *Reading Radiologist: Dhaval He on 12/29/2021 at 11:09 AM Narrative 12/29/2021 11:09 AM CDT EXAMINATION: BILATERAL DIGITAL SCREENING MAMMOGRAM AND BILATERAL BREAST TOMOSYNTHESIS HISTORY: Screening. COMPARISON: Serial examinations dating back to September 21, 2011. TECHNIQUE: ??BILATERAL digital breast tomosynthesis (DBT) and synthetic 2D digital mammogram images were obtained (bilateral craniocaudal and mediolateral oblique projections) including computer aided detection (CAD.) BREAST PARENCHYMAL COMPOSITION:Category B: There are scattered areas of fibroglandular density. MAMMOGRAM FINDINGS: There is no suspicious finding in either breast. Krystal Rainey MD MAMMO ORDERABLES * DIABETES EYE EXAM (10/26/2020) Provider Unknown HEALTH MAINTENANCE * DEXA BONE DENSITY AXIAL SKELETON (09/01/2020 2:45 PM [facility]) Anatomical Region Laterality Modality Mammography 09/01/2020 3:03 PM [facility] Narrative 09/01/2020 3:04 PM [facility] BONE MINERAL DENSITY STUDY INDICATION: ??Postmenopausal ovarian failure - osteoporosis screening. FINDINGS: The average bone mineral density from L1 to L4 is1.366 g/cm2. T-score is 1.6. Z-score is 2.1. The average bone mineral density of the total right hip is 1.101 g/cm2. T-score is 0.7. ??Z-score is 1.2. When compared to prior examination of 05/29/2014 bone density has decreased by 3.7% at the lumbar spine and has decreased by 3.3% at the proximal femur. ASSESSMENT: This patient is considered normal according to World Health Organization criteria. Fracture risk is low. WORLD HEALTH ORGANIZATION DEFINITIONS OSTEOPENIA = -1 TO -2.5 SD BELOW T-SCORE. OSTEOPOROSIS = LESS THAN -2.5 SD BELOW T-SCORE *Reading Radiologist: Judie Moreno on 09/01/2020 at 3:04 PM Procedure Note Judie Moreno MD - 09/01/2020 BONE MINERAL DENSITY STUDY INDICATION: Postmenopausal ovarian failure - osteoporosis screening. FINDINGS: The average bone mineral density from L1 to L4 is1.366 g/cm2. T-score is 1.6. Z-score is 2.1. The average bone mineral density of the total right hip is 1.101 g/cm2. T-score is 0.7. Z-score is 1.2. When compared to prior examination of 05/29/2014 bone density has decreased by 3.7% at the lumbar spine and has decreased by 3.3% at the proximal femur. ASSESSMENT: This patient is considered normal according to World Health Organization criteria. Fracture risk is low. WORLD HEALTH ORGANIZATION DEFINITIONS OSTEOPENIA = -1 TO -2.5 SD BELOW T-SCORE. OSTEOPOROSIS = LESS THAN -2.5 SD BELOW T-SCORE *Reading Radiologist: Judie Moreno on 09/01/2020 at 3:04 PM Krystal Rainey MD DEXA ORDERABLES * HEPATITIS C ANTIBODY (12/06/2012 1:31 PM CDT) Hepatitis C Virus Antibody <0.1 0.0 - 0.9 s/co ratio [facility] ACCOUNT BILL Comment: ? Negative: ? < 0.8 ? Indeterminate 0.8 - 0.9 ? Positive: ? > 0.9 ? . ? In order to reduce the incidence of a false positive ? result, the CDC recommends that all s/co ratios ? between 1.0 and 10.9 be confirmed with additional ? RIBA or PCR testing. Blood specimen (specimen) BLOOD SPECIMEN / Unknown 12/06/2012 1:31 PM CDT 12/06/2012 3:43 PM CDT Narrative Resulting Agency Comment [facility] [address] ??[facility] [id number] Miah Bowman DO LAB - CHEMISTRY ORDE EVA [facility] ACCOUNT BILL * ENDOSCOPY, COLON, DIAGNOSTIC (07/05/2012 3:18 PM CDT) Narrative Transcriptions Jalen Bloom DO - 07/05/2012 3:18 PM CDT Jalen Bloom DO GI PROCEDURE ORDER [facility] ENDOSCOPY MARIE Ribeiro [id number] from Last 3 Months or Most Recently Relevant to Health Maintenance Advance Directives * FULL RESUSCITATION (Latest Code Status on File) Date Activated Date Inactivated Comments 11/14/2012 9:58 PM 11/15/2012 7:45 PM Care Teams Combat Systems Engineer Relationship Specialty Start Date End Date Jose R Peck MD [address] [place] [address] [address] [place] [phone] PCP - General Internal Medicine 09/15/22 [place] [address] [facility] [address] [place] [address] Pulmonary Disease 05/19/19 [place] [address] [place] [phone] Endocrinology 07/30/19 [place] [address] [place] [phone] Anesthesiology-Pain Management 07/30/19
--- OUTSIDE RECORDS SUMMARY | 2024-09-25 13:26 | XMS_ITS | Referral Summary ---
Author Organization [facility] [employer] Address [address] [place] [address] Care Team Providers Care Frame Expander Name Role Phone Carter Del Cid MD Unavailable Esequiel Palmer MD Unavailable Pawan Severino MD Unavailable Jose R Peck MD Primary Care Provider Source Comments [facility],non-owned Affiliates and Associated Physician Practices is amultiple site organization consisting of ambulatory clinics and hospital sitesin [place], [place], [place] and [place]. This disclosure is being madepursuant to the Care Everywhere program and may not contain all information available regarding this patient. Last updated 18.[facility] [employer] Encounters Date Type Department Care Team Description 09/19/2024 Refill [facility] - Endocrinology [address] [place] [address], [address] [id number] Esequiel Palmer MD Refill Request from Last 3 Months Allergies Active Allergy Reactions Criticality Noted Date [...] hyperglycemia, with long-term current use of insulin ([facility]) Inject 140 (one hundred forty) mg subcutaneously every 14 days 6 mL 1 4 Active TRUEplus Lancets 33G MISCIndications:T ype 2 diabetes mellitus with hyperglycemia, with long-term current use of insulin ([facility]) TEST TWICE DAILY 200 Each 5 4 Active rosuvastatin (Crestor) 5 MG tablet TAKE 1 TABLET BY MOUTH ON SUNDAY, SUNDAY, AND Fridays 4 Active glipiZIDE (Glucotrol) 10 MG tabletIndications :Type 2 diabetes mellitus with hyperglycemia, with long-term current use of insulin ([facility]) Take 1 (one) tablet by mouth daily before dinner T 90 tablet 1 4 Active BD Pen Needle Zeenat U/F 32G X 4 MM MISCIndications:T ype 2 diabetes mellitus with hyperglycemia, with long-term current use of insulin ([facility]) Use 1 Each once daily 200 Each 5 4 Active blood glucose (True Metrix Blood Glucose Test) test stripIndications: Type 2 diabetes mellitus without complication, with long-term current use of insulin ([facility]) Use 1 (one) strip twice daily, before breakfast & at bedtime. 200 strip 1 4 Active Blood Glucose Monitoring Suppl (OneTouch Verio) w/Device KITIndications:Ty pe 2 diabetes mellitus without complication, with long-term current use of insulin ([facility]) Use 1 device twice daily, before breakfast & at bedtime. 1 kit 1 4 Active Lancets (ONETOUCH DELICA PLUS 33G EXTRA FINE LANCET)Indication s:Type 2 diabetes mellitus with hyperglycemia, with long-term current use of insulin ([facility]) Use 1 Each twice daily, before breakfast & at bedtime. 200 Each 2 4 Active OneTouch Verio test stripIndications: Type 2 diabetes mellitus without complication, with long-term current use of insulin ([facility]) USE 1 STRIP TWICE DAILY BEFORE BREAKFAST [...] S/P colonoscopic polypectomy 08/03/2011 04/29/2019 Overview (08/03/2011): 3-2007 Dr. Bloom Screening for breast cancer 08/03/2011 [...] Date: 02/28/2006 Mammogram: Result: WNL Date: 01/25/2004 Immunizations Name Administration Dates Next Due AlphaBoost primary monoval ent 12+ yr 0.3mL Purple [...] TDAP (7yrs+) 12/05/2012 ZOSTER VACCINE, LIVE 04/08/2012 Social History Tobacco Use Types Packs/Day Years [...] 03/21/2024 11:14 AM CDT Plan of Treatment Not on file Goals Goal Patient Goal Type Associated Problems [...] how to manage your diabetes: ? ? [place] [employer]: www.diabetes.org 7-795-JNJAMKQL ( ) ? ? [place] [employer]-Support group line: www.professional.diabetes.org ? ? [place] [employer]: www.heart.org or 0-048-ULA-[place]-1 ( ) ? ? [employer] My[employer]ate: www.[employer].gov Procedures Procedure Name Priority Date/Time Associated Diagnosis [...] DENSITY AXIAL SKELETON Routine 09/01/2020 2:45 PM POLLS OR SURVEYS INTERVIEWER Postmenopausal HEPATITIS C ANTIBODY Routine 12/06/2012 1:31 PM CDT Need for hepatitis C screening test ENDOSCOPY, COLON, DIAGNOSTIC Routine 07/05/2012 3:18 PM CDT from Last 3 Months or Most Recently Relevant to Health Maintenance Results * HEMOGLOBIN A1C - POINT OF CARE (HgbA1C) (03/21/2024) Hemoglobin A1c POCT 6.8 % Expiration Date 06/10/2025 Lot # [id number] QC Verified Yes Yes Blood BLOOD SPECIMEN [...] Resulting Agency Comment Lab Testing performed at: [facility] [address] [facility] ??[facility] [id number] Esequiel Palmer MD LAB - URINE CHEMISTR Y ORDERABLES [facility] INSURANCE BILL [address] [place] [address] * (ABNORMAL) BASIC METABOLIC PANEL (CALCIUM TOTAL) [...] Resulting Agency Comment Lab Testing performed at: [facility] [place] [address] [facility] ??[facility] [id number] Esequiel Palmer MD LAB - CHEMISTRY DOM VELASQUEZ [facility] INSURANCE BILL [address] [place] [address] * MAMMO BILAT SCREENING W MARCIAL (12/29/2021 [...] BONE DENSITY AXIAL SKELETON (09/01/2020 2:45 PM POLLS OR SURVEYS INTERVIEWER) Anatomical Region Laterality Modality Mammography 09/01/2020 3:03 PM POLLS OR SURVEYS INTERVIEWER Narrative 09/01/2020 3:04 PM POLLS OR SURVEYS INTERVIEWER BONE MINERAL DENSITY STUDY INDICATION: ??Postmenopausal ovarian [...] PM CDT Narrative Resulting Agency Comment [facility] [place] [address] ??[place] [id number] Miah Bowman DO LAB - CHEMISTRY DOM VELASQUEZ [facility] ACCOUNT BILL * ENDOSCOPY, COLON, DIAGNOSTIC (07/05/2012 3:18 PM CDT) Narrative Transcriptions Jalen Bloom DO - 07/05/2012 3:18 PM CDT Jalen Bloom DO GI PROCEDURE ORDER [facility] ENDOSCOPY MARIE Ribeiro [id number] from Last 3 Months or Most Recently Relevant to Health Maintenance Advance Directives * FULL RESUSCITATION (Latest Code Status on File) Date Activated Date Inactivated Comments 11/14/2012 9:58 PM 11/15/2012 7:45 PM Care Teams Frame Expander Relationship Specialty Start Date End Date Jose R Peck MD [address] [place] [address], [place] [address] PCP - General Internal Medicine 09/15/22 [place] [id number] [facility] [address] [place] [address] Pulmonary Disease 05/19/19 [place] [address] [address] Endocrinology 07/30/19 [place] [id number] [facility] [address] [place] [id number] Anesthesiology-Pain Management 07/30/19
--- OUTSIDE RECORDS SUMMARY | 2024-09-25 13:26 | XMS_ITS | Patient Health Summary ---
Author Organization [facility] Address [address] [place] [place] [address] Care Team Providers Care Instructional Services Specialist Name Role Phone Carter Del Cid MD Unavailable Esequiel Palmer MD Unavailable Pawan Severino MD Unavailable Jose R Peck MD Primary Care Provider [phone] Note from [facility],non-owned Affiliates and Associated Physician Practices is amultiple site organization consisting of ambulatory clinics and hospital sitesin [place], [place], [place] and [place]. This disclosure is being madepursuant to the Care Everywhere program and may not contain all information available regarding this patient. Last updated 18.[facility] Allergies * Hmg-Coa-R Inhibitors(Myalgias) * Tetracycline(GI Upset) Medications * Be aware that medications may not be up to date on this document. Alwaysverify current medications with the patient. * aspirin 81 MG tablet Take 1 (one) tablet by mouth once daily * multivitamin daily (THERAGRAN) tablet Take 1 (one) tablet by mouth daily with food * cycloSPORINE (RESTASIS) 0.05 % ophthalmic suspension(Started 01/29/2020) Instill 1 drop into both eyes 2 times daily 2 refills by 01/28/2021 * diclofenac sodium EC (VOLTAREN) 50 MG tablet(Started 06/01/2021) * traMADol (ULTRAM) 50 MG tablet(Started 05/28/2021) Take 1 (one) tablet by mouth every 6 hours as needed pain * budesonide-formoterol (SYMBICORT) 160-4.5 MCG/ACT inhaler(Started 06/02/2021) Inhale 2 (two) puffs by mouth 2 times daily Brand name only no generic 4 refills by 06/02/2022 * montelukast (SINGULAIR) 10 MG tablet(Started 06/02/2021) Take 1 (one) tablet by mouth once daily 4 refills by 06/02/2022 * VENTOLIN HFA 108 (90 Base) MCG/ACT inhaler(Started 06/02/2021) Inhale 2 (two) puffs by mouth every 6 hours as needed 5 refills by 06/02/2022 * albuterol (PROVENTIL;VENTOLIN) (2.5 MG/3ML) 0.083% nebulizer solution(Started 06/03/2021) Inhale 2.5 (two and one-half) mg by mouth 3 times daily 3 refills by 06/03/2022 * amLODIPine (NORVASC) 10 MG tablet(Started 12/02/2021) TAKE 1 TABLET BY MOUTH EVERY DAY 1 refill by 12/02/2022 * hydroCHLOROthiazide (HYDRODIURIL) 12.5 MG(Started 12/02/2021) TAKE 1 TABLET BY MOUTH EVERY DAY 1 refill by 12/02/2022 * tiZANidine (ZANAFLEX) 4 MG tablet(Started 12/20/2021) Take 1 (one) tablet by mouth nightly as needed for Muscle Spasms * losartan (COZAAR) 100 MG tablet(Started 03/03/2022) TAKE 1 TABLET BY MOUTH EVERY DAY 1 refill by 03/03/2023 * Basaglar KwikPen (BASAGLAR) pen(Started 03/14/2022) Inject 20 (twenty) Units to 40 (forty) Units subcutaneously once daily * ezetimibe (Zetia) 10 MG tablet(Started 02/14/2023) Take 1 (one) tablet by mouth once daily Reasons: High Amount of Fats in the Blood 1 refill by 02/14/2024 * Trulicity 1.5 MG/0.5ML injection(Started 10/16/2023) INJECT 1.5 MG (0.5ML) UNDER THE SKIN ONCE A WEEK 2 refills by 10/15/2024 * evolocumab (Repatha) 140 MG/ML auto-injector(Started 02/27/2024) Inject 140 (one hundred forty) mg subcutaneously every 14 days 1 refill by 02/26/2025 * TRUEplus Lancets 33G MISC(Started 03/14/2024) TEST TWICE DAILY 5 refills by 03/14/2025 * rosuvastatin (Crestor) 5 MG tablet(Started 03/05/2024) TAKE 1 TABLET BY MOUTH ON SUNDAY, SUNDAY, AND FRIDAYS * glipiZIDE (Glucotrol) 10 MG tablet(Started 03/21/2024) Take 1 (one) tablet by mouth daily before dinner T 1 refill by 03/21/2025 * BD Pen Needle Zeenat U/F 32G X 4 MM MISC(Started 04/15/2024) Use 1 Each once daily 5 refills by 04/15/2025 * blood glucose (True Metrix Blood Glucose Test) test strip(Started 05/20/2024) Use 1 (one) strip twice daily, before breakfast & at bedtime. 1 refill by 05/20/2025 * Blood Glucose Monitoring Suppl (OneTouch Verio) w/Device KIT(Started 05/31/2024) Use 1 device twice daily, before breakfast & at bedtime. 1 refill by 05/31/2025 * Lancets (ONETOUCH DELICA PLUS 33G EXTRA FINE LANCET)(Started 06/17/2024) Use 1 Each twice daily, before breakfast & at bedtime. 2 refills by 06/17/2025 * OneTouch Verio test strip(Started 09/19/2024) USE 1 STRIP TWICE DAILY BEFORE BREAKFAST AND AT BEDTIME. 1 refill by 09/19/2025 Ended Medications* blood glucose (OneTouch Verio) test strip(Started 05/31/2024) (Discontinued) Use 1 (one) strip twice daily, before breakfast & at bedtime. 1 refill by 05/31/2025 Active Problems Problem Noted Date Diagnosed Date Class 2 severe obesity due t o excess calories with serious comorbidity and body mass index (BMI) of 36.0 to 36.9 in adult 03/21/2024 Severe episode of recurrent major depressive dis order 12/15/2021 Long-term insulin use 04/19/2020 Chronic bilateral low back pain without sciatica 06/25/2019 Asthma-COPD overlap syndrome 06/10/2019 Mild episode of recurrent major depressive disor sukhwinder 04/29/2019 Chronic pain syndrome 04/29/2019 SIMRAN (obstructive sleep apnea) 08/01/2018 Allergic rhinitis 12/05/2012 Hyperlipidemia 08/03/2011 HTN (hypertension) 01/10/2011 Type 2 diabetes mellitus wit hout complication, with long-term current use of insulin 05/24/2009 Obesity 05/24/2009 OA (osteoarthritis) 05/24/2009 Insomnia 12/15/2008 Resolved Problems Problem Noted Date Diagnosed Date Resolved Date Type 2 diabetes mellitus wit h diabetic nephropathy, without long-term current use of insulin 02/23/2022 03/21/2024 Type 2 diabetes mellitus with hyperglycemia 12/15/2021 12/20/2021 Uncontrolled type 2 diabetes mellitus with hyperglycemia 04/19/2020 12/20/2021 Morbid obesity with BMI of 40.0-44.9, adult 04/29/2019 11/22/2020 Screening for osteoporosis 12/05/2012 0 04/29/2019 S/P colonoscopic polypectomy 08/03/2011 04/29/2019 Screening for breast cancer 08/03/2011 04/29/2019 Asthma 07/25/2011 06/10/2019 Diabetic eye exam 01/10/2011 04/29/2019 Injury, other and unspecifie d, hand, except finger 03/23/2010 04/29/2019 Hypertension 12/15/2008 11/30/2009 Non-insulin dependent type 2 diabetes mellitus 12/15/2008 12/05/2012 Post menopausal syndrome 12/15/2008 Screening for condition 12/15/200804/04 Immunizations * Covid Pfizer primary monovalent 12+ yr 0.3mL Purple cap(Given 12/20/2021, 12/15/2020, 11/22/2020) * INFLUENZA VACCINE(Given 07/04/2012, 09/03/2007, 09/03/2006) * INFLUENZA VACCINE, ADJUVANTED, QUADR. (FLUAD QUADRIVALENT; 65Y+) (AIIV4)(Given 06/14/2021) * INFLUENZA VACCINE, HIGH-DOSE, QUADR. (FLUZONE HIGH-DOSE QUADRIVALENT; 65Y+), 0.7 ML (HD-IIV4)(Given 07/30/2019) * INFLUENZA VACCINE, QUADR. (AFLURIA, FLUZONE QUADRIVALENT; 6MO+) (IIV4)(Given 06/03/2014) * PNEUMOCOCCAL PPSV23(Given 09/03/2003) * TD (ADULT), 5 LF TETANUS TOXOID, ADSORBED, PF(Given 12/10/2014) * TDAP (7yrs+)(Given 12/05/2012) * ZOSTER VACCINE, LIVE(Given 04/08/2012) Social History Tobacco Use Types Packs/Day Years [...] Mass Index 36.32 03/21/2024 11:14 AM CDT Procedures * GLUCOSE - POINT OF CARE (AMB) STL(Performed 03/21/2024) Performed for Type 2 diabetes mellitus with hyperglycemia, with long-term current use of insulin ([facility]) * HEMOGLOBIN A1C - POINT OF CARE (AMB)(Performed 03/21/2024) Performed for Type 2 diabetes mellitus with hyperglycemia, with long-term current use of insulin ([facility]) * US SOFT TISSUE HEAD NECK(Performed 12/21/2023) Performed for Type 2 diabetes mellitus with hyperglycemia, with long-term current use of insulin ([facility]) * TSH REFLEX FREE T4(Performed 12/21/2023) Performed for Type 2 diabetes mellitus with hyperglycemia, with long-term current use of insulin ([facility]) * VITAMIN B12 FOLATE PANEL(Performed 12/21/2023) Performed for Type 2 diabetes mellitus with hyperglycemia, with long-term current use of insulin ([facility]) * MICROALB/CREAT RATIO URINE RANDOM PANEL(Performed 12/21/2023) Performed for Type 2 diabetes mellitus with hyperglycemia, with long-term current use of insulin ([facility]) * LIPID PROFILE REFLEX LDL DIRECT(Performed 12/21/2023) Performed for Type 2 diabetes mellitus with hyperglycemia, with long-term current use of insulin ([facility]) * BASIC METABOLIC PANEL (CALCIUM TOTAL)(Performed 12/21/2023) Performed for Type 2 diabetes mellitus with hyperglycemia, with long-term current use of insulin ([facility]) * GLUCOSE - POINT OF CARE (AMB) STL(Performed 12/21/2023) Performed for Type 2 diabetes mellitus with hyperglycemia, with long-term current use of insulin ([facility]) * HEMOGLOBIN A1C - POINT OF CARE (AMB)(Performed 12/21/2023) Performed for Type 2 diabetes mellitus with hyperglycemia, with long-term current use of insulin ([facility]) * GLUCOSE - POINT OF CARE (AMB) STL(Performed 07/11/2023) Performed for Type 2 diabetes mellitus with hyperglycemia, with long-term current use of insulin ([facility]) * HEMOGLOBIN A1C - POINT OF CARE (AMB)(Performed 07/11/2023) Performed for Type 2 diabetes mellitus with hyperglycemia, with long-term current use of insulin ([facility]) * LAB RESULTS ORDER(Performed 03/27/2023) * HEMOGLOBIN A1C - POINT OF CARE (AMB)(Performed 09/15/2022) Performed for Type 2 diabetes mellitus without complication, with long-term current use of insulin ([facility]) * GLUCOSE - POINT OF CARE (AMB) STL(Performed 09/15/2022) Performed for Type 2 diabetes mellitus without complication, with long-term current use of insulin ([facility]) * VITAMIN D 25-HYDROXY(Performed 03/14/2022) Performed for Type 2 diabetes mellitus with hyperglycemia, with long-term current use of insulin ([facility]) * T4 FREE(Performed 03/14/2022) Performed for Type 2 diabetes mellitus with hyperglycemia, with long-term current use of insulin ([facility]) * TSH(Performed 03/14/2022) Performed for Type 2 diabetes mellitus with hyperglycemia, with long-term current use of insulin ([facility]) * FOLATE(Performed 03/14/2022) Performed for Type 2 diabetes mellitus with hyperglycemia, with long-term current use of insulin ([facility]) * VITAMIN B12(Performed 03/14/2022) Performed for Type 2 diabetes mellitus with hyperglycemia, with long-term current use of insulin ([facility]) * MICROALB/CREAT RATIO URINE RANDOM PANEL(Performed 03/14/2022) Performed for Type 2 diabetes mellitus with hyperglycemia, with long-term current use of insulin ([facility]) * LIPID PROFILE REFLEX LDL DIRECT(Performed 03/14/2022) Performed for Type 2 diabetes mellitus with hyperglycemia, with long-term current use of insulin ([facility]) * BASIC METABOLIC PANEL (CALCIUM TOTAL)(Performed 03/14/2022) Performed for Type 2 diabetes mellitus with hyperglycemia, with long-term current use of insulin ([facility]) * HEMOGLOBIN A1C - POINT OF CARE (AMB)(Performed 03/14/2022) Performed for Type 2 diabetes mellitus with hyperglycemia, with long-term current use of insulin ([facility]) * GLUCOSE - POINT OF CARE (AMB) STL(Performed 03/14/2022) Performed for Type 2 diabetes mellitus with hyperglycemia, with long-term current use of insulin ([facility]) * MAMMO BILAT SCREENING W MARCIAL(Performed 12/29/2021) Performed for Screening mammogram for breast cancer * HEMOGLOBIN A1C - POINT OF CARE (AMB)(Performed 07/26/2021) Performed for Type 2 diabetes mellitus with hyperglycemia, with long-term current use of insulin ([facility]) * GLUCOSE - POINT OF CARE (AMB) STL(Performed 07/26/2021) Performed for Type 2 diabetes mellitus with hyperglycemia, with long-term current use of insulin ([facility]) * MICROALB/CREAT RATIO URINE RANDOM PANEL(Performed 01/20/2021) Performed for Type 2 diabetes mellitus with hyperglycemia, with long-term current use of insulin (HCC) * LIPID PROFILE REFLEX LDL DIRECT(Performed 01/20/2021) Performed for Type 2 diabetes mellitus with hyperglycemia, with long-term current use of insulin (HCC) * BASIC METABOLIC PANEL (CALCIUM TOTAL)(Performed 01/20/2021) Performed for Type 2 diabetes mellitus with hyperglycemia, with long-term current use of insulin (HCC) * HEMOGLOBIN A1C - POINT OF CARE (AMB)(Performed 01/20/2021) Performed for Type 2 diabetes mellitus with hyperglycemia, with long-term current use of insulin (HCC) * GLUCOSE - POINT OF CARE (AMB) STL(Performed 01/20/2021) Performed for Type 2 diabetes mellitus with hyperglycemia, with long-term current use of insulin (HCC) * HM DIABETES EYE EXAM(Performed 10/26/2020) * MAMMO BILAT SCREENING(Performed 09/01/2020) Performed for Encounter for screening mammogram for breast cancer * DEXA BONE DENSITY AXIAL SKELETON(Performed 09/01/2020) Performed for Postmenopausal * HEMOGLOBIN A1C - POINT OF CARE (AMB)(Performed 07/21/2020) Performed for Type 2 diabetes mellitus with hyperglycemia, with long-term current use of insulin (HCC) * GLUCOSE - POINT OF CARE (AMB) STL(Performed 07/21/2020) Performed for Type 2 diabetes mellitus with hyperglycemia, with long-term current use of insulin (HCC) * TSH(Performed 05/20/2020) Performed for Multiple thyroid nodules * MICROALB/CREAT RATIO URINE RANDOM PANEL(Performed 05/20/2020) Performed for Uncontrolled type 2 diabetes mellitus with hyperglycemia (HCC) * LIPID PROFILE(Performed 05/20/2020) Performed for Uncontrolled type 2 diabetes mellitus with hyperglycemia (HCC) * HEMOGLOBIN A1C(Performed 05/20/2020) Performed for Uncontrolled type 2 diabetes mellitus with hyperglycemia (HCC) * BASIC METABOLIC PANEL (CALCIUM TOTAL)(Performed 05/20/2020) Performed for Uncontrolled type 2 diabetes mellitus with hyperglycemia (HCC) * HEMOGLOBIN A1C - POINT OF CARE (AMB)(Performed 10/28/2019) Performed for Uncontrolled type 2 diabetes mellitus with hyperglycemia (HCC) * GLUCOSE - POINT OF CARE (AMB) STL(Performed 10/28/2019) Performed for Uncontrolled type 2 diabetes mellitus with hyperglycemia (HCC) * FINE NEEDLE ASPIRATION - THYROID (STL)(Performed 08/06/2019) Performed for Multiple thyroid nodules, Type 2 diabetes mellitus without complication, with long-term current use of insulin (HCC), SIMRAN (obstructive sleep apnea), Severe episode of recurrent major depressive disorder, without psychotic features (HCC), Morbid obesity with BMI of 40.0-44.9, adult (HCC), Chronic pain syndrome, Asthma-COPD overlap syndrome, Chronic bilateral low back pain without sciatica * US THYROID FNA(Performed 08/06/2019) Performed for Multiple thyroid nodules * AL ELECTROCARDIOGRAM, COMPLETE(Performed 07/30/2019) Performed for Chest pain, unspecified type * CARDIAC EKG ORDER(Performed 07/30/2019) * US THYROID(Performed 07/21/2019) Performed for Multiple thyroid nodules * HEMOGLOBIN A1C - POINT OF CARE (AMB)(Performed 07/08/2019) Performed for Uncontrolled type 2 diabetes mellitus with hyperglycemia (HCC) * GLUCOSE - POINT OF CARE (AMB) STL(Performed 07/08/2019) Performed for Uncontrolled type 2 diabetes mellitus with hyperglycemia (HCC) * US BREAST LEFT LTD(Performed 06/27/2019) Performed for Breast lump on left side at 6 o'clock position * MAMMO BILAT DIAGNOSTIC(Performed 06/27/2019) Performed for Breast lump on left side at 6 o'clock position * CT LUNG SCREEN LOW DOSE(Performed 06/06/2019) Performed for Smoking greater than 40 pack years * COMPLETE PFT W/WO BRONCHODILATOR(Performed 06/06/2019) Performed for JOEL (dyspnea on exertion) * HOME O2 EVAL (DESATURATION SCREEN)(Performed 06/06/2019) Performed for JOEL (dyspnea on exertion) * TSH REFLEX FREE T4(Performed 05/23/2019) Performed for Type 2 diabetes mellitus with hyperglycemia, with long-term current use of insulin ([facility]), Hyperlipidemia, unspecified hyperlipidemia type, Essential hypertension * MICROALB/CREAT RATIO URINE RANDOM PANEL(Performed 05/23/2019) Performed for Type 2 diabetes mellitus with hyperglycemia, with long-term current use of insulin ([facility]) * HEMOGLOBIN A1C W EAG(Performed 05/23/2019) Performed for Type 2 diabetes mellitus with hyperglycemia, with long-term current use of insulin ([facility]) * LIPID PROFILE REFLEX LDL DIRECT(Performed 05/23/2019) Performed for Type 2 diabetes mellitus with hyperglycemia, with long-term current use of insulin ([facility]), Hyperlipidemia, unspecified hyperlipidemia type * COMPREHENSIVE METABOLIC PANEL(Performed 05/23/2019) Performed for Type 2 diabetes mellitus with hyperglycemia, with long-term current use of insulin (HCC), Essential hypertension * CBC W AUTO DIFFERENTIAL(Performed 05/23/2019) Performed for Type 2 diabetes mellitus with hyperglycemia, with long-term current use of insulin (HCC), Essential hypertension * XR FOOT RIGHT 3VW OR MORE(Performed 12/10/2014) Performed for Injury, other and unspecified, knee, leg, ankle, and foot * DEXA BONE DENSITY 2 SITES(Performed 05/29/2014) Performed for Health maintenance examination * MAMMO BILAT SCREENING(Performed 05/29/2014) Performed for Healthcare maintenance * MICROALB/CREAT RATIO URINE RANDOM PANEL(Performed 05/25/2014) Performed for Health maintenance examination * HEMOGLOBIN A1C(Performed 05/25/2014) Performed for Health maintenance examination * LIPID PROFILE(Performed 05/25/2014) Performed for Health maintenance examination * TSH(Performed 05/25/2014) Performed for Health maintenance examination * COMPREHENSIVE METABOLIC PANEL(Performed 05/25/2014) Performed for Health maintenance examination * CBC W AUTO DIFFERENTIAL(Performed 05/25/2014) Performed for Health maintenance examination * CBC W AUTO DIFFERENTIAL(Performed 05/08/2014) Performed for Pneumonia * XR CHEST 2VW(Performed 12/18/2013) Performed for Cough, Sinus congestion * INFLUENZA A+B - POINT OF CARE (AMB)(Performed 12/18/2013) Performed for Cough, Sinus congestion * POLYSOMNOGRAPHY 4 OR MORE PARAMETERS WITH CPAP(Performed 04/08/2013) Performed for Sleep Disturbance, Unspecified, Other Dyspnea And Respiratory Abnormality, Other Malaise And Fatigue * MAMMO BILAT SCREENING(Performed 03/25/2013) Performed for Screening for breast cancer * URINALYSIS MICROSCOPIC ONLY REFLEXED(Performed 12/06/2012) Performed for Type II or unspecified type diabetes mellitus without mention of complication, not stated as uncontrolled (HCC) * URINALYSIS NO MICROSCOPIC NO CULTURE(Performed 12/06/2012) Performed for DM w/o Complication Type II * HEPATITIS SCREEN ACUTE(Performed 12/06/2012) * HEPATITIS C ANTIBODY(Performed 12/06/2012) Performed for Need for hepatitis C screening test * MICROALB/CREAT RATIO URINE RANDOM PANEL(Performed 12/06/2012) Performed for DM w/o Complication Type II * HEMOGLOBIN A1C(Performed 12/06/2012) Performed for DM w/o Complication Type II * TSH(Performed 12/06/2012) Performed for HTN (hypertension) * COMPREHENSIVE METABOLIC PANEL(Performed 12/06/2012) Performed for DM w/o Complication Type II, HTN (hypertension), Hyperlipidemia * CARDIAC RHYTHM STRIP ORDER(Performed 11/16/2012) * CARDIAC EKG ORDER(Performed 11/16/2012) * GLUCOSE - POINT OF CARE(Performed 11/15/2012) * NM MYOCARD PERF REST STRESS(Performed 11/15/2012) * STRESS TEST LEXISCAN (NUCLEAR)(Performed 11/15/2012) Performed for Chest Pain * ECHOCARDIOGRAM 2D WITH DOPPLER(Performed 11/15/2012) Performed for Chest Pain, Sinusitis, acute, RLS (restless legs syndrome), Post menopausal syndrome,Insomnia, Screening for unspecified condition, DM w/o Complication Type II, Obesity, OA (osteoarthritis), Injury, other and unspecified, hand, except finger, Diabetic eye exam (HCC), HTN (hypertension), Asthma, S/P colonoscopic polypectomy, Hyperlipidemia, Screening for breast cancer * BASIC METABOLIC PANEL (CALCIUM TOTAL)(Performed 11/15/2012) * TROPONIN I(Performed 11/15/2012) * XR CHEST 1VW PORTABLE(Performed 11/14/2012) Performed for Chest Pain * D-DIMER(Performed 11/14/2012) * TROPONIN I(Performed 11/14/2012) * CBC W AUTO DIFFERENTIAL(Performed 11/14/2012) * EKG 12-LEAD(Performed 11/14/2012) Performed for Chest Pain * ENDOSCOPY, COLON, DIAGNOSTIC(Performed 07/05/2012) * URINALYSIS MICROSCOPIC ONLY REFLEXED(Performed 04/08/2012) Performed for NIDDM (non-insulin dependent diabetes mellitus), HTN (hypertension) * URINALYSIS NO MICROSCOPIC NO CULTURE(Performed 04/08/2012) Performed for NIDDM (non-insulin dependent diabetes mellitus), HTN (hypertension) * MICROALB/CREAT RATIO URINE RANDOM PANEL(Performed 04/08/2012) Performed for NIDDM (non-insulin dependent diabetes mellitus), HTN (hypertension) * HEMOGLOBIN A1C(Performed 04/08/2012) Performed for NIDDM (non-insulin dependent diabetes mellitus) * LIPID PROFILE W TCHOL/HDL(Performed 04/08/2012) Performed for Hyperlipidemia * GENERAL HEALTH PANEL(Performed 04/08/2012) Performed for NIDDM (non-insulin dependent diabetes mellitus), HTN (hypertension), Hyperlipidemia * MAMMO BILAT SCREENING(Performed 09/21/2011) Performed for Screening for breast cancer * MICROALB/CREAT RATIO URINE RANDOM PANEL(Performed 08/23/2011) Performed for NIDDM (non-insulin dependent diabetes mellitus), HTN (hypertension) * URINALYSIS NO MICROSCOPIC NO CULTURE(Performed 08/23/2011) Performed for NIDDM (non-insulin dependent diabetes mellitus), HTN (hypertension) * HEMOGLOBIN A1C(Performed 08/23/2011) Performed for NIDDM (non-insulin dependent diabetes mellitus) * LIPID PROFILE W TCHOL/HDL(Performed 08/23/2011) Performed for Hyperlipidemia * COMPREHENSIVE METABOLIC PANEL(Performed 08/23/2011) Performed for NIDDM (non-insulin dependent diabetes mellitus), HTN (hypertension) * CBC W AUTO DIFFERENTIAL(Performed 06/06/2011) Performed for Elevated WBC count * CBC W AUTO DIFFERENTIAL(Performed 05/24/2011) Performed for URI (upper respiratory infection) * NM MYOCARD PERF REST STRESS(Performed 01/13/2011) Performed for HTN (hypertension), Chest pain, NIDDM (non-insulin dependent diabetes mellitus) * STRESS TEST NUCLEAR(Performed 01/13/2011) Performed for HTN (hypertension), Chest pain, NIDDM (non-insulin dependent diabetes mellitus) * HEMOGLOBIN A1C(Performed 01/10/2011) Performed for NIDDM (non-insulin dependent diabetes mellitus) * LIPID PROFILE W TCHOL/HDL(Performed 01/10/2011) Performed for NIDDM (non-insulin dependent diabetes mellitus), HTN (hypertension) * GENERAL HEALTH PANEL(Performed 01/10/2011) Performed for NIDDM (non-insulin dependent diabetes mellitus), HTN (hypertension), Obesity * EKG 12-LEAD(Performed 01/10/2011) Performed for HTN (hypertension), Chest pain * CARDIAC EKG ORDER(Performed 10/28/2010) * GLUCOSE - POINT OF CARE(Performed 10/28/2010) * BASIC METABOLIC PANEL (CALCIUM TOTAL)(Performed 10/27/2010) Performed for Preoperative examination * EMG WITH NERVE CONDUCTION STUDY(Performed 09/19/2010) Performed for Carpal tunnel syndrome * MRI KNEE RIGHT WO CONTRAST(Performed 09/06/2010) Performed for Tear of medial cartilage or meniscus of knee, current * VITAMIN D 25-HYDROXY(Performed 04/25/2010) Performed for Vitamin D Deficiency, NIDDM (Non-Insulin Dependent Diabetes Mellitus), HTN (Hypertension), Benign, Dermatitis * HEMOGLOBIN A1C(Performed 04/25/2010) Performed for NIDDM (Non-Insulin Dependent Diabetes Mellitus), HTN (Hypertension), Benign, Vitamin D Deficiency, Dermatitis * BASIC METABOLIC PANEL (CALCIUM TOTAL)(Performed 04/25/2010) Performed for NIDDM (Non-Insulin Dependent Diabetes Mellitus), HTN (Hypertension), Benign, Vitamin D Deficiency, Dermatitis * XR HAND RIGHT 3VW OR MORE(Performed 03/23/2010) Performed for Injury, Other and Unspecified, Hand, except Finger * MICROALB/CREAT RATIO URINE RANDOM PANEL(Performed 12/01/2009) Performed for DM w/o Complication Type II (HCC) * VITAMIN D 25-HYDROXY(Performed 12/01/2009) Performed for Screening for Unspecified Condition * HEMOGLOBIN A1C(Performed 12/01/2009) Performed for DM w/o Complication Type II (HCC) * LIPID PROFILE W TCHOL/HDL(Performed 12/01/2009) Performed for DM w/o Complication Type II (HCC), HTN (Hypertension), Benign * GENERAL HEALTH PANEL(Performed 12/01/2009) Performed for DM w/o Complication Type II (HCC), HTN (Hypertension), Benign * MAMMO BILAT SCREENING(Performed 12/01/2009) Performed for Other Screening Mammogram * DEXA BONE DENSITY 2 SITES(Performed 12/01/2009) Performed for Screening for Unspecified Condition * URINALYSIS AUTO - POINT OF CARE(Performed 11/30/2009) Performed for Dysuria * COMPREHENSIVE METABOLIC PANEL(Performed 08/17/2009) * PTT(Performed 08/17/2009) * PT-INR(Performed 08/17/2009) * CBC W AUTO DIFFERENTIAL(Performed 08/17/2009) * URINE MICROSCOPIC ONLY(Performed 03/16/2009) Performed for NIDDM (Non-Insulin Dependent Diabetes Mellitus) * URINALYSIS NO MICROSCOPIC NO CULTURE(Performed 03/16/2009) Performed for NIDDM (Non-Insulin Dependent Diabetes Mellitus) * MICROALB/CREAT RATIO URINE RANDOM PANEL(Performed 03/16/2009) Performed for NIDDM (Non-Insulin Dependent Diabetes Mellitus) * HEMOGLOBIN A1C(Performed 03/16/2009) Performed for NIDDM (Non-Insulin Dependent Diabetes Mellitus) * BASIC METABOLIC PANEL (CALCIUM TOTAL)(Performed 03/16/2009) Performed for NIDDM (Non-Insulin Dependent Diabetes Mellitus) * HEMOGLOBIN A1C(Performed 08/14/2008) * LIPID PROFILE W TCHOL/HDL(Performed 08/14/2008) * GENERAL HEALTH PANEL(Performed 08/14/2008) * GROSS + MICRO EXAM(Performed 01/31/2008) * GROSS + MICRO EXAM(Performed 09/13/2006) * GROSS + MICRO EXAM(Performed 09/09/2004) Results * (ABNORMAL) GLUCOSE - POINT OF CARE (AMB) STL (03/21/2024) Only the most recent of10 resultswithin the time period is included. Glucose 157(A) 60 - 100 mg/dL Lot # [id number] Expiration Date 02/18/2025 QC Verified Yes Yes Blood BLOOD SPECIMEN / Unknown 03/21/2024 Esequiel Palmer MD LAB - POINT OF CARE ORDERABLES * HEMOGLOBIN A1C - POINT OF CARE (HgbA1C) (03/21/2024) Only the most recent of10 resultswithin the time period is included. Hemoglobin A1c POCT 6.8 % Expiration Date 06/10/2025 Lot # [id number] QC Verified Yes Yes Blood BLOOD SPECIMEN / Unknown 03/21/2024 Esequiel Palmer MD LAB - POINT OF CARE ORDERABLES * US SOFT TISSUE HEAD NECK (12/21/2023 12:06 PM CDT) Anatomical Region Laterality Modality Head Ultrasound 12/24/2023 1:25 PM CDT Impressions 12/24/2023 1:32 PM CDT IMPRESSION: 1. Multiple thyroid nodules, as detailed in the body the report. Given overall nodule size and morphology, a follow-up thyroid ultrasound is recommended in one year. > Interpreting Provider: Moose Wesley DO on 12/24/2023 1:32 PM Narrative 12/24/2023 1:32 PM CDT PROCEDURE: ??US SOFT TISSUE HEAD NECK DATE/TIME OF EXAM: ??12/21/2023 12:06 PM CLINICAL INFORMATION: Thyroid ultrasound performed 07/21/2019. Thyroid FNA 08/06/2019. COMPARISON: None. TECHNIQUE: Ultrasound of the thyroid was performed utilizing standard protocol. FINDINGS: Isthmus measures under 4 mm. Right lobe measures 5.6 x 1.9 cm. Left lobe measures 4.2 x 1.5 x 1.5 cm. Multiple nodules are identified: 1.3 x 0.9 x 1.1 cm solid hyperechoic nodule with small hypoechoic center. Smooth margins, wider than tall and no calcification (TR 3). Uncertain if this nodule was noted previously. 1.2 x 1.0 x 1.1 cm hypoechoic nodule. Smooth margins, wider than tall and no calcifications (TR 4). 0.9 x 0.6 x 0.9 cm solid hyperechoic nodule inferior right lobe. Smooth margins, wider than tall and no calcifications (TR 3). 1.3 x 0.7 x 1.2 cm solid hypoechoic nodule superior left lobe. Smooth margins, wider than tall and no calcification (TR 4). This nodule previously measured 1.2 x 0.7 x 0.6 cm. 1.0 x 0.8 x 0.7 cm hypoechoic nodule inferior left lobe (TR 4). TR 4 nodules are moderately suspicious. FNA when greater than or equal to 1.5 cm and surveillance when greater than or equal to 1 cm. TR 3 nodules are mildly suspicious. FNA when greater than or equal to 2.5 cm and surveillance when greater than or equal to 1.5 cm. Procedure Note Moose Wesley DO - 12/24/2023 PROCEDURE: US SOFT TISSUE HEAD NECK DATE/TIME OF EXAM: 12/21/2023 12:06 PM CLINICAL INFORMATION: Thyroid ultrasound performed 07/21/2019. ThyroidFNA 08/06/2019. COMPARISON: None. TECHNIQUE: Ultrasound of the thyroid was performed utilizing standard protocol. FINDINGS: Isthmus measures under 4 mm. Right lobe measures 5.6 x 1.9 cm. Left lobe measures 4.2 x 1.5 x 1.5 cm. Multiple nodules are identified: 1.3 x 0.9 x 1.1 cm solid hyperechoic nodule with small hypoechoiccenter. Smooth margins, wider than tall and no calcification (TR 3). Uncertainif this nodule was noted previously. 1.2 x 1.0 x 1.1 cm hypoechoic nodule. Smooth margins, wider than talland no calcifications (TR 4). 0.9 x 0.6 x 0.9 cm solid hyperechoic nodule inferior right lobe. Smooth margins, wider than tall and no calcifications (TR 3). 1.3 x 0.7 x 1.2 cm solid hypoechoic nodule superior left lobe. Smooth margins, wider than tall and no calcification (TR 4). This nodule previously measured 1.2 x 0.7 x 0.6 cm. 1.0 x 0.8 x 0.7 cm hypoechoic nodule inferior left lobe (TR 4). TR 4 nodules are moderately suspicious. FNA when greater than or equalto 1.5 cm and surveillance when greater than or equal to 1 cm. TR 3 nodules are mildly suspicious. FNA when greater than or equal to 2.5 cm and surveillance when greater than or equal to 1.5 cm. IMPRESSION: 1. Multiple thyroid nodules, as detailed in the body the report. Given overall nodule size and morphology, a follow-up thyroid ultrasound is recommended in one year. > Interpreting Provider: Moose Wesley DO on 12/24/2023 1:32 PM Esequiel Palmer MD ORDERABLES * (ABNORMAL) LIPID PROFILE REFLEX LDL DIRECT (12/21/2023 10:40 AM CDT) Only the most recent of4 resultswithin the time period is included. Cholesterol 159 100 - 199 mg/dL [facility] INSURANCE BILL Triglycerides 157(H) 0 - 149 mg/dL [facility] INSURANCE BILL HDL Cholesterol 42 >39 mg/dL [facility] INSURANCE BILL VLDL Calculated 27 5 - 40 mg/dL [facility] INSURANCE BILL LDL Calculated 90 0 - 99 mg/dL [facility] INSURANCE BILL Comment NOT AVAILABLE [facility] INSURANCE BILL Comment:Result cannot be obt ained for this observation. Cholesterol/HDL Ratio 3.8 0.0 - 4.4 ratio [facility] INSURANCE BILL Comment: ? T. Chol/HDL Ratio ? Men ??Women ? 1/2 Avg.Risk ??3.4 ?3.3 ? Avg.Risk ??5.0 ?4.4 ?2X Avg.Risk ??9.6 ?7.1 ?3X Avg.Risk 23.4 ?? 11.0 LDL/HDL Ratio 2.1 0.0 - 3.2 ratio [facility] INSURANCE BILL Comment: ? LDL/HDL Ratio ? Men ??Women ? 1/2 Avg.Risk ??1.0 ?1.5 ? Avg.Risk ??3.6 ?3.2 ?2X Avg.Risk ??6.2 ?5.0 ?3X Avg.Risk ??8.0 ?6.1 FASTING Blood BLOOD SPECIMEN / Unknown 12/21/2023 10:40 AM CDT 12/21/2023 Narrative Resulting Agency Comment Lab Testing performed at: [employer] ??[facility] [phone] Esequiel Palmer MD LAB - CHEMISTRY [place]QUE[place] Performing Organization Address [facility] de Phone Number [facility] INSURANCE BILL [address] [place] [address] * TSH REFLEX FREE T4 (12/21/2023 10:40 AM CDT) Only the most recent of2 resultswithin the time period is included. TSH 2.560 0.450 - 4.500 uIU/mL [employer] INSURANCE BILL Comment:FASTING Blood BLOOD SPECIMEN / Unknown 12/21/2023 10:40 AM CDT 12/21/2023 Narrative Resulting Agency Comment Lab Testing performed at: [address] ??[facility] [phone] Esequiel Palmer MD LAB - CHEMISTRY [place] Performing Organization Address [facility] Co de Phone Number [employer] INSURANCE BILL [address] [place] [address] * MICROALB/CREAT RATIO URINE RANDOM PANEL (12/21/2023 10:40 AM CDT) Only the most recent of11 resultswithin the time period is included. Creatinine Urine 25.5 Not Estab. mg/dL [facility] [...] Resulting Agency Comment Lab Testing performed at: [address] ??[facility] [phone] Esequiel Palmer MD LAB - URINE CHEMISTR Y ORDERABLES [facility] INSURANCE BILL [address] [place] [address] * (ABNORMAL) BASIC METABOLIC PANEL (CALCIUM TOTAL) (12/21/2023 10:40 AM CDT) Only the most recent of8 resultswithin the time period is included. Pathologist [facility] Glucose 87 70 - 99 mg/dL [facility] [...] Resulting Agency Comment Lab Testing performed at: [employer] ??[facility] [phone] Esequiel Palmer MD LAB - CHEMISTRY DOM V[place]ASQUEZ Performing Organization Address City/[facility] Co de Phone Number [facility] INSURANCE BILL [address] [place] [address] * VITAMIN B12 FOLATE PANEL (12/21/2023 10:40 AM CDT) [facility] Vitamin B12 471 232 - 1,245 pg/mL [facility] INSURANCE BILL Folate 11.2 >3.0 ng/mL [facility] INSURANCE BILL Comment: A serum folate concentration of less than 3.1 ng/mL is considered to represent clinical deficiency. FASTING Blood BLOOD SPECIMEN / Unknown 12/21/2023 10:40 AM CDT 12/21/2023 Narrative Resulting Agency Comment Lab Testing performed at: [employer] [address] [place], [place] [address]ox [facility] ??[facility] [phone] Esequiel Palmer MD LAB - CHEMISTRY [place] Performing Organization Address City/[facility]/ZIP Co de Phone Number [facility] INSURANCE BILL [address] [place] [address] * LAB RESULTS ORDER (03/27/2023) 03/27/2023 Narrative 03/27/2023 Ordered by an unspecified provider. Scanned Document LAB - THERAPEUTIC DR MARROQUIN MONITORING ORDERABLES * VITAMIN D 25-HYDROXY (03/14/2022 10:37 AM CDT) Only the most recent of3 resultswithin the time period is included. Vitamin D, 25 Hydroxy 38.9 30.0 - 100.0 ng/mL [facility] ACCOUNT BILL Comment: Vitamin D deficiency has been defined by the [place] of Medicine and an Endocrine Society practice guideline as a level of serum 25-OH vitamin D less than 20 ng/mL (1,2). The Endocrine Society went on to further define vitamin D insufficiency as a level between 21 and 29 ng/mL (2). 1. IOM ([place] of Medicine). 2010. Dietary reference ?? intakes for calcium and D. [place]: The ?? [employer]. 2. Jessica HERNANDEZ, Sue [place], David SANTANA, et al. ?? Evaluation, treatment, and prevention of vitamin D ?? deficiency: an Endocrine Society clinical practice ?? guideline. JCEM. 2010; 96(7):1911-30. Blood BLOOD SPECIMEN / Unknown 03/14/2022 10:37 AM CDT 03/14/2022 Narrative Resulting Agency Comment Lab Testing performed at: [facility] ??[facility] [phone] Esequiel Palmer MD LAB - CHEMISTRY DOM VELASQUEZ Performing Organization Address [facility] Co de Phone Number [facility] ACCOUNT BILL [address] [place] [address] * FOLATE (03/14/2022 10:37 AM CDT) Folate 14.0 >3.0 ng/mL [facility] ACCOUNT BILL Comment: A serum folate concentration of less than 3.1 ng/mL is considered to represent clinical deficiency. Blood BLOOD SPECIMEN / Unknown 03/14/2022 10:37 AM CDT 03/14/2022 Narrative Resulting Agency Comment Lab Testing performed at: [facility] [address] ??[facility] [phone] Esequiel Palmer MD LAB - CHEMISTRY DOM VELASQUEZ [facility] ACCOUNT BILL [address] [place] [address] * VITAMIN B12 (03/14/2022 10:37 AM CDT) Vitamin B12 452 232 - 1,245 pg/mL [facility] ACCOUNT BILL Blood BLOOD SPECIMEN / Unknown 03/14/2022 10:37 AM CDT 03/14/2022 Narrative Resulting Agency Comment Lab Testing performed at: [facility] [address] [facility] ??[facility] [phone] Esequiel Palmer MD LAB - CHEMISTRY DOM VELASQUEZ Performing Organization Address [facility] Co de Phone Number [facility] ACCOUNT BILL [address] [place] [address] * TSH (03/14/2022 10:37 AM CDT) Only the most recent of4 resultswithin the time period is included. TSH 3.620 0.450 - 4.500 uIU/mL [facility] ACCOUNT BILL Blood BLOOD SPECIMEN / Unknown 03/14/2022 10:37 AM CDT 03/14/2022 Narrative Resulting Agency Comment Lab Testing performed at: [facility] [address] [facility] ??[facility] [phone] Esequiel Palmer MD LAB - CHEMISTRY DOM VELASQUEZ Performing Organization Address [facility] Co de Phone Number [facility] ACCOUNT BILL [address] [place] [address] * T4 FREE (03/14/2022 10:37 AM CDT) T4 Free 1.22 0.82 - 1.77 ng/dL [facility] ACCOUNT BILL Blood BLOOD SPECIMEN / Unknown 03/14/2022 10:37 AM CDT 03/14/2022 Narrative Resulting Agency Comment Lab Testing performed at: [facility] [address] ??[facility] [phone] Esequiel Palmer MD LAB - VERO VELASQUEZ [facility] ACCOUNT BILL [place] [address] * MAMMO BILAT SCREENING W MARCIAL (12/29/2021 [...] EXAM (10/26/2020) Provider Unknown HEALTH MAINTENANCE * MAMMO BILAT SCREENING (09/01/2020 3:03 PM POLICE COMMISSIONER) Only the most recent of5 resultswithin the time period is included. Anatomical Region Laterality Modality Breast Bilateral Mammography 09/01/2020 3:50 PM POLICE COMMISSIONER Narrative 09/01/2020 4:00 PM POLICE COMMISSIONER DIGITAL BILATERAL SCREENING MAMMOGRAMS WITH CAD AND 3-D TOMOSYNTHESIS DATE: 09/01/2020 2:32 PM PREVIOUS EXAM DATE: 06/27/2019 INDICATION: Screening TECHNIQUE: Bilateral craniocaudad (CC) and mediolateral oblique (MLO) views. Images were interpreted with the aid of CAD. 3-D tomosynthesis images were performed. TECHNOLOGIST: RT Jj(R)(M) TISSUE DENSITY: Predominantly fatty. FINDINGS: An intramammary lymph node is seen in each breast. There is no change. There is no mass nor microcalcification. ASSESSMENT: (BI-RADS category 1) Negative. RECOMMENDATIONS: Continued annual screening mammography. The above findings should be correlated with physical examination. A relatively nonspecific study should not preclude additional evaluation if suspicious findings are present clinically. An [employer] Facility. [facility] utilizes [employer] as a reminder system to notify patients of their next recommended mammograms. Edited by Meredith Gary on 09/01/2020 3:56 PM *Reading Radiologist: Aide Diaz on 09/01/2020 at 4:00 PM Krystal Rainey MD MAMMO ORDERABLES * DEXA BONE DENSITY AXIAL SKELETON (09/01/2020 2:45 PM POLICE COMMISSIONER) Anatomical Region Laterality Modality Mammography 09/01/2020 3:03 PM POLICE COMMISSIONER Narrative 09/01/2020 3:04 PM POLICE COMMISSIONER BONE MINERAL DENSITY STUDY INDICATION: ??Postmenopausal ovarian [...] PM Krystal Rainey MD DEXA ORDERABLES * (ABNORMAL) HEMOGLOBIN A1C (05/20/2020 1:18 PM CDT) Only the most recent of10 resultswithin the time period is included. Hemoglobin A1c 7.9(H) 4.2 - 5.6 % [facility] ACCOUNT BILL Comment: AVERAGE GLUCOSE MG/DL BLOOD ??180 ?mg/dL The following cutoff levels are recommended by [place] [employer]. A1c ??> 6.5% : considered as diabetes if two separate tests > 6.5% or in an appropriate clinical setting. A1c ??5.7% - 6.4% : considered as prediabetes (suggest increa sed risk for diabetes and cardiovascular disease) Control target level: ??Should be individualized. ??< 7 ??for g eneral (non-) , ??< 8% less stringent goal, ??< 6.5 ??more stringent g Hemoglobin A1c measurements are used as an aid in the diagno sis of diabetic mellitus, as an aid to identify patients who may be at the disease. ?? This method may yield falsely low results when fe cristal hemoglobin (HbF) exceeds 5% in the specimen. Blood BLOOD SPECIMEN / Unknown 05/20/2020 1:18 PM CDT 05/20/2020 Narrative Resulting Agency Comment Lab Testing performed at: [facility] [address] [address] ?? Quintin SAL[facility]AR [phone] Esequiel Palmer MD LAB - CHEMISTRY DOM V[place]ASQUE[place] [facility] ACCOUNT BILL [address] [place] [address] * (ABNORMAL) LIPID PROFILE (05/20/2020 1:18 PM CDT) Only the most recent of2 resultswithin the time period is included. Cholesterol 173 <200 mg/dL [facility] ACCOUNT BILL Triglycerides 160(H) <150 mg/dL [facility] ACCOUNT BILL HDL Cholesterol 37(L) >40 mg/dL [facility] ACCOUNT BILL VLDL Calculated 32(H) <=30 mg/dL [facility] ACCOUNT BILL LDL Calculated 104 <130 mg/dL [facility] ACCOUNT BILL Comment:Not calculated Blood BLOOD SPECIMEN / Unknown 05/20/2020 1:18 PM CDT 05/20/2020 Narrative Resulting Agency Comment Lab Testing performed at: [address] ?? [facility] [phone] Esequiel Palmer MD LAB - CHEMISTRY DOM VELASQUEZ [facility] ACCOUNT BILL [address] [place] [address] * FINE NEEDLE ASPIRATION - THYROID (STL) (08/06/2019 12:29 PM POLICE COMMISSIONER) Case Report Fine Needle Aspiration Report ? Case: [id number] ? Authorizing Provider: ??Esequiel Palmer MD ?Collected: ? 08/06/2019 12:29 PM ? Ordering Location: ? [facility] ULTRASOUND ?Received: ?08/06/2019 12:30 PM ? Pathologist: ? John Reynolds MD ? Specimen: ?Thyroid, RIGHT ? 08/07/2019 3:38 PM [facility] Final Diagnosis Thyroid, right, fine needle aspiration cytology - Benign thyroid nodule [facility] 08/07/19 08/07/2019 3:38 PM [facility] Clinical History Right thyroid nodule. Fine needle aspiration of the nodule performed under ultrasound guidance by Dr. Jacobo. Two passes yielded bloody fluid. Smears from each pass were quick stained and examined at the time of the procedure reported scant benign x2 by Dr. Reynolds. 08/07/2019 3:38 PM [facility] Gross Description Smears retained for file: Alcohol-fixed Papanicolaou stained - 4 08/07/2019 3:38 PM [facility] Grossed By John Reynolds M.D. 01/2019 3:38 PM [facility] Microscopic Description Smears are technically adequate. Cellularity consists of scant unremarkable thyroid epithelium with no atypia or malignancy. Background contains blood and colloid. [facility] 08/07/2019 3:38 PM [facility] Consulting Pathologist(s ) John Reynolds M.D. 08/07/2019 3:38 PM [facility] Disclaimer All histochemical and/or immunohistochemical results are interpreted with controls that demonstrate appropriate staining reactions before reporting results. Note on use of immunocytochemistry reagents: This test was developed and its performance characteristic determined by [facility], Department of Laboratory Medicine. It has not been cleared or approved by the U.S. Food and Drug Administration (FDA). The FDA has determined that such clearance or approval is not necessary. The test is used for clinical purpose. It should not be regarded as investigational or for research. This laboratory is certified to perform high complexity testing. 08/07/2019 3:38 PM POLICE COMMISSIONER [facility] Performed By [facility] at [facility], [address] [facility], [place]. [address] 08/07/2019 3:38 PM POLICE COMMISSIONER [facility] Embedded Images 08/07/2019 3:38 PM POLICE COMMISSIONER [facility] Pathology/Cytolo gy SPECIMEN FROM THYROID OBTAINED BY THYROIDECTOMY / Unknown 08/06/2019 12:29 PM POLICE COMMISSIONER 08/06/2019 12:30 PM POLICE COMMISSIONER Esequiel Palmer MD LAB - PATHOLOGY/CYTO LOGY ORDERABLES [facility] [address] [place] [address] * US THYROID FNA (08/06/2019 11:46 AM POLICE COMMISSIONER) Anatomical Region Laterality Modality Ultrasound 08/06/2019 12:3 6 PM POLICE COMMISSIONER Impressions 08/06/2019 12:42 PM POLICE COMMISSIONER Ultrasound-guided FNA biopsy of the dominant lower pole right thyroid nodule. Reading Radiologist: Faisal Jacobo MD on 08/06/2019 at 12:42 PM Narrative 08/06/2019 12:42 PM POLICE COMMISSIONER Ultrasound-guided FNA, right thyroid HISTORY: Bilateral thyroid nodules. PROCEDURE: The heterogeneous hypoechoic lower pole right thyroid nodule is more suspicious than the others, and this was targeted. It measures 1.1 x 1.0 x 0.8 cm. The skin was prepped with chlorhexidine. 2 samples were obtained under direct ultrasound guidance with 25-gauge needles. Aggregate was deemed sufficient for diagnosis by Dr. Reynolds. The patient experienced some discomfort with the second sampling, but otherwise tolerated the procedure well. Procedure Note Faisal Jacobo MD - 08/06/2019 Ultrasound-guided FNA, right thyroid HISTORY: Bilateral thyroid nodules. PROCEDURE: The heterogeneous hypoechoic lower pole right thyroid nodule is more suspicious than the others, and this was targeted. It measures 1.1 x 1.0 x 0.8 cm. The skin was prepped with chlorhexidine. 2 samples were obtained under direct ultrasound guidance with 25-gauge needles. Aggregate was deemed sufficient for diagnosis by Dr. Reynolds. The patient experienced some discomfort with the second sampling, but otherwise tolerated the procedure well. IMPRESSION Ultrasound-guided FNA biopsy of the dominant lower pole right thyroid nodule. Reading Radiologist: Faisal Jacobo MD on 08/06/2019 at 12:42 PM Esequiel Palmer MD US ORDERABLES * CARDIAC EKG ORDER (07/30/2019) Only the most recent of3 resultswithin the time period is included. Krystal Rainey MD CARDIAC SERVICES ORD ERABLES * AL ELECTROCARDIOGRAM, COMPLETE (07/30/2019) 07/30/2019 Narrative Krystal Rainey MD - 07/30/2019 NSR. HR 80. No ST elevation or depression. No pathologic T wave inversion Krystal Rainey MD AL - PROFESSIONAL SE RVICES * US THYROID (07/21/2019 10:48 AM POLICE COMMISSIONER) Anatomical Region Laterality Modality Chest Ultrasound 07/21/2019 11:0 5 AM POLICE COMMISSIONER Impressions 07/21/2019 11:12 AM POLICE COMMISSIONER bilateral thyroid nodules as described Reading Radiologist: Ted Alejandro MD on 07/21/2019 at 11:12 AM Narrative 07/21/2019 11:12 AM POLICE COMMISSIONER Ultrasound thyroid INDICATION: thyroid nodules FINDINGS: Ultrasound shows the right lobe of the thyroid to measure 3.87 x 1.04 x 1.49 cm and left lobe measure 4.44 x 1.70 x 1.30 cm. The isthmus measures 0.30 cm. Multiple small nodules are present bilaterally. The largest on the right in the upper aspect measures 1.03 x 0.79 x 0.90 cm. The largest on the left in the midportion measures 1.06 x 0.66 x 0.92 cm and has a mixed cystic and solid component. Procedure Note Ted Alejandro MD - 07/21/2019 Ultrasound thyroid INDICATION: thyroid nodules FINDINGS: Ultrasound shows the right lobe of the thyroid to measure 3.87 x 1.04 x 1.49 cm and left lobe measure 4.44 x 1.70 x 1.30 cm. The isthmus measures 0.30 cm. Multiple small nodules are present bilaterally. The largest on the right in the upper aspect measures 1.03 x 0.79 x 0.90 cm. The largest on the left in the midportion measures 1.06 x 0.66 x 0.92 cm and has a mixed cystic and solid component. IMPRESSION bilateral thyroid nodules as described Reading Radiologist: Ted Alejandro MD on 07/21/2019 at 11:12 AM Esequiel Palmer MD US ORDERABLES * US BREAST LEFT LTD (06/27/2019 10:38 AM CDT) Anatomical Region Laterality Modality Breast Left Ultrasound 06/27/2019 10:3 9 AM CDT Narrative 06/27/2019 10:57 AM CDT ULTRASOUND LEFT BREAST LIMITED INDICATION: Palpable abnormality of the left breast. Lower inner quadrant of the left breast was interrogated and reveals no discrete abnormality. No mass nor cyst is noted. A few prominent ducts are seen. These benign findings were shared in person with the patient by myself. ASSESSMENT: BI-RADS 2 - Benign findings. RECOMMENDATION: Screening interval follow-up. Edited by Farhana Morales on 06/27/2019 10:54 AM Reading Radiologist: Aide Diaz MD on 06/27/2019 at 10:57 AM Krystal Rainey MD US ORDERABLES * MAMMO DIAG DIRECT DIGITAL IMAGE BILA [id number] (06/27/2019 10:18 AM CDT) Anatomical Region Laterality Modality Breast Bilateral Mammography 06/27/2019 10:4 4 AM CDT Narrative 06/27/2019 10:57 AM CDT DIGITAL BILATERAL DIAGNOSTIC MAMMOGRAMS WITH CAD AND 3-D TOMOSYNTHESIS DATE: 06/27/2019 9:51 AM. PREVIOUS EXAM DATE: 11/09/2016. INDICATION: Palpable abnormality left lower inner quadrant, family history sister with breast cancer. TECHNIQUE: Bilateral craniocaudad (CC) and mediolateral oblique (MLO) views. Images were interpreted with the aid of CAD. 3-D tomosynthesis images were performed. TECHNOLOGIST: Cony Michel, RT (R)(M) TISSUE DENSITY: Predominantly fatty. FINDINGS: There is no discrete abnormality mammographically. Small stable intramammary and axillary tail lymph nodes are noted. These are not changed or enlarged. Directed ultrasound performed in the area of palpable concern and reveals a few prominent ducts. These benign findings were shared with the patient in person. ASSESSMENT: BI-RADS 2 - Benign findings. RECOMMENDATION: Continued annual screening mammography. The above findings should be correlated with physical examination. A relatively nonspecific study should not preclude additional evaluation if suspicious findings are present clinically. An [employer] Facility. [facility] Breast [facility] utilizes [employer] as a reminder system to notify patients of their next recommended mammograms. Edited by Farhana Morales on 06/27/2019 10:56 AM Reading Radiologist: Aide Diaz MD on 06/27/2019 at 10:57 AM Krystal Rainey MD MAMMO ORDERABLES * CT LUNG CANCER SCREEN LOW DOSE (06/06/2019 12:21 PM CDT) Anatomical Region Laterality Modality Chest Computed Tomogra phy 06/06/2019 12:3 6 PM CDT Narrative 06/06/2019 12:[address] LUNG CANCER SCREENING WITHOUT IV CONTRAST INDICATION: Smoker, 82.5 pack year history. TECHNIQUE: Helical CT images of the chest obtained using the screening protocol. Total dose 109.31 mGy/cm. COMPARISON: None. FINDINGS: There are innumerable scattered calcified granulomata throughout the lung garibay. The airways are patent. There is medial right lower lobe atelectasis. Scattered small lymph nodes are present in the mediastinum. No pleural or pericardial fluid is noted. Osseous structures are unremarkable. Limited images of the upper abdomen appear unremarkable. ASSESSMENT: ??Lung-RADS category 2 benign findings. RECOMMENDATION: ??Low-dose CT screening 12 months. ACR Lung-RADS Category/Recommendations: 0: Need prior comparisons or additional images 1: Negative: 12 month follow up LDCT (Low Dose CT) 2: Benign Appearin month follow up LDCT 3: Probably Benign: 6 month follow up LDCT 4A: Suspicious: 3 month follow up LDCT (or immediate PET if >7mm solid component) 4B: Suspicious: Immediate Chest CT or PET if >7mm solid component 4X: Cat 3 or 4A nodules with additional suspicious findings Modifier- S : Significant NON-lung cancer findings Modifier- C : Prior treated Lung Cancer. For details of the ACR Lung-RADS program, categories and recommendations: 1) http://www.acr.org/Quality-Safety/Resources/LungRADS Edited by Farhana Morales on 06/06/2019 12:42 PM Reading Radiologist: Aide Diaz MD on 06/06/2019 at 12:59 PM Procedure Note Aide Diaz MD - 06/06/2019 CT LUNG CANCER SCREENING WITHOUT IV CONTRAST INDICATION: Smoker, 82.5 pack year history. TECHNIQUE: Helical CT images of the chest obtained using the screening protocol. Total dose 109.31 mGy/cm. COMPARISON: None. FINDINGS: There are innumerable scattered calcified granulomata throughout the lung garibay. The airways are patent. There is medial right lower lobe atelectasis. Scattered small lymph nodes are present in the mediastinum. No pleural or pericardial fluid is noted. Osseous structures are unremarkable. Limited images of the upper abdomen appear unremarkable. ASSESSMENT: Lung-RADS category 2 benign findings. RECOMMENDATION: Low-dose CT screening 12 months. ACR Lung-RADS Category/Recommendations: 0: Need prior comparisons or additional images 1: Negative: 12 month follow up LDCT (Low Dose CT) 2: Benign Appearin month follow up LDCT 3: Probably Benign: 6 month follow up LDCT 4A: Suspicious: 3 month follow up LDCT (or immediate PET if >7mm solid component) 4B: Suspicious: Immediate Chest CT or PET if >7mm solid component 4X: Cat 3 or 4A nodules with additional suspicious findings Modifier- S : Significant NON-lung cancer findings Modifier- C : Prior treated Lung Cancer. For details of the ACR Lung-RADS program, categories and recommendations: 1) http://www.acr.org/Quality-Safety/Resources/LungRADS Edited by Farhana Morales on 06/06/2019 12:42 PM Reading Radiologist: Aide Diaz MD on 06/06/2019 at 12:59 PM Carter Del Cid MD CT ORDERABLES * COMPLETE PFT W/WO BRONCHODILATOR (06/06/2019 11:59 AM CDT) Narrative Procedure Note Carter Del Cid MD - 06/06/2019 11:59 AM CDT [facility] PULMONARY FUNCTION TEST REPORT PATIENT: DAVID SAMAYOA MR#: [id number] ADMIT DATE: 06/06/2019 CSN: [id number] DATE OF PROCEDURE: :1955 PHYSICIAN: Carter Del Cid MD REFERRING PHYSICIAN: Carter Del Cid MD REPORT: FVC is mildly reduced, which is 2.48 L and 78% predicted. FEV1is mildly reduced as well, which is 1.74 L and 71% predicted. FEV1/FVC ratiois normal, which is 70%. There is some bronchodilator response with FEV1 improving by 10% after single application of bronchodilator, but notadequate as per ATS guidelines. Flow in the mid expiratory range is severelyreduced, which is 1.17 L and 54% predicted. Vital capacity is mildly reduced,which is 2.48 L and 84% predicted. Total lung capacity is higher than expected signifying hyperinflation with 6.22 L and 128% predicted. Residual volumeis elevated, which is 3.74 L and 198% predicted, signifying air entrapment.DLCO is mildly reduced, which is 72% predicted. When it was adjusted foralveolar volume, it became 121% predicted. Upon inspection of the flow volumecurve, there is scooping of the expiratory limb suggestive of obstructive lung pattern. INTERPRETATION: This PFT is suggestive of obstructive lung disease, whichis mild to moderate in severity. It is also showing evidence ofhyperinflation and air entrapment. There is some bronchodilator response but notsignificant as per ATS guidelines. 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 Please correlate clinically. MD Neetu AU/MODL #:[id number] Carter Del Cid MD RESPIRATORY THERAPY ORDERABLES [facility] * (ABNORMAL) HEMOGLOBIN A1C W EAG (05/23/2019 11:07 AM CDT) Hemoglobin A1c 9.6(H) <5.7 % of total Hgb [facility] Comment: For someone without known diabetes, a [...] for diagnosis of diabetes for children. ?? Estimated Average Glucose 229 (calc) [facility] Estimated Average Glucose 12.7 (calc) [facility] Comment: REPORT COMMENT: FASTING:YES Test Performed at: [facility] [address] [place], [place] ??[phone] ALEXY AGUILAR DO,MPH Blood BLOOD SPECIMEN / Unknown 05/23/2019 11:07 AM CDT 05/23/2019 11:11 AM CDT Krystal Rainey MD LAB - CHEMISTRY [facility] Organization Address City/State/ZIP Co de Phone Number [facility] [address] [place] [address] * CBC WITH DIFFERENTIAL (05/23/2019 11:07 AM CDT) Only the most recent of7 resultswithin the time period is included. White Blood Cell Count 9.7 3.8 - 10.8 Thousand/u L [facility] RBC 4.80 3.80 - 5.10 Million/uL [facility] Hemoglobin 13.8 11.7 - 15.5 g/dL [facility] Hematocrit 41.7 35.0 - 45.0 % [facility] MCV 86.9 80.0 - 100.0 fL [facility] MCH 28.8 27.0 - 33.0 pg [facility] MCHC 33.1 32.0 - 36.0 g/dL [facility] RDW 12.8 11.0 - 15.0 % [facility] Platelet Count 235 140 - 400 Thousand/u L [facility] MPV 10.3 7.5 - 12.5 fL [facility] Neutrophil Absolute 6121 1500 - 7800 cells/uL [facility] Lymphocytes Absolute 2726 850 - 3900 cells/uL [facility] Absolute Monocytes 601 200 - 950 cells/uL [facility] Eosinophils Absolute 184 15 - 500 cells/uL [facility] Basophils Absolute 68 0 - 200 cells/uL [facility] Granulocytes % 63.1 % [facility] Lymphocytes % 28.1 % [facility] Monocytes % 6.2 % [facility] Eosinophils % 1.9 % [facility] Basophils % 0.7 % [facility] Comment: Test Performed at: [facility] [address] [place], [place] ??[phone] ALEXY AGUILAR DO,MPH Blood BLOOD SPECIMEN / Unknown 05/23/2019 11:07 AM CDT 05/23/2019 11:11 AM CDT Krystal Rainey MD LAB - HEMATOLOGY ORD ERABLES [facility] [address] [place] [address] * (ABNORMAL) COMPREHENSIVE METABOLIC PANEL (05/23/2019 11:07 AM CDT) Only the most recent of5 resultswithin the time period is included. Glucose 203(H) 65 - 99 mg/dL [facility] Comment: ? Fasting reference interval For someone without known diabetes, a glucose value >125 mg/dL indicates that they may have diabetes and this should be confirmed with a follow-up test. BUN 16 7 - 25 mg/dL [facility] Creatinine 0.54 0.50 - 0.99 mg/dL [facility] Comment: For patients >49 years of age, the reference limit for Creatinine is approximately 13% higher for people identified as -[place]. eGFR by MDRD 99 > OR = 60 mL/min/1 .73m2 [facility] eGFR by MDRD 115 > OR = 60 mL/min/1 .73m2 [facility] BUN/Creatinine Ratio NOT APPLICABLE 6 - 22 (calc) [facility] Sodium 140 135 - 146 mmol/L [facility] Potassium 4.1 3.5 - 5.3 mmol/L [facility] Chloride 101 98 - 110 mmol/L [facility] CO2 30 20 - 32 mmol/L [facility] Calcium 9.4 8.6 - 10.4 mg/dL [facility] Protein Total 7.0 6.1 - 8.1 g/dL [facility] Albumin 4.1 3.6 - 5.1 g/dL [facility] Globulin Total 2.9 1.9 - 3.7 g/dL (calc) [facility] Albumin/Globulin Ratio 1.4 1.0 - 2.5 (calc) [facility] Bilirubin Total 0.5 0.2 - 1.2 mg/dL [facility] Alkaline Phosphatase 90 33 - 130 U/L [facility] AST 33 10 - 35 U/L [facility] ALT 42(H) 6 - 29 U/L [facility] Comment: Test Performed at: [facility] [address] [place], [place] ??[phone] ALEXY AGUILAR DO,MPH Blood BLOOD SPECIMEN / Unknown 05/23/2019 11:07 AM CDT 05/23/2019 11:11 AM CDT Krystal Rainey MD LAB - CHEMISTRY [facility] [place] [address] [place] [address] * XR FOOT 3+ VW RIGHT (12/10/2014 9:16 PM CDT) Anatomical Region Laterality Modality Ankle / Foot Radiographic Peyton ging 12/10/2014 9:33 PM CDT Impressions 12/10/2014 9:34 PM CDT Negative for fracture at this time. ??Please see above. Narrative 12/10/2014 9:34 PM CDT Examination: Right foot 3 views Indication: ??Right foot pain. ??Ran over foot with the wheel of the x-ray portable machine. Findings: No fracture can be identified on the current plain films. If the patient's symptoms persist or worsen, consideration may be given to an alternative imaging modality such as an MRI or a bone scan to check for an occult process. Procedure Note Jaskaran Tejada MD - 12/10/2014 Examination: Right foot 3 views Indication: Right foot pain. Ran over foot with the wheel of the x-ray portable machine. Findings: No fracture can be identified on the current plain films. If the patient's symptoms persist or worsen, consideration may be given to an alternative imaging modality such as an MRI or a bone scan to check for an occult process. IMPRESSION Negative for fracture at this time. Please see above. Lise Pfeiffer PA-C DIAGNOSTIC IMAGING ORDERABLES * DEXA BONE DENSITY 2 SITES (05/29/2014 2:37 PM CDT) Only the most recent of2 resultswithin the time period is included. Anatomical Region Laterality Modality Mammography 05/29/2014 2:44 PM CDT Narrative 05/29/2014 3:25 PM CDT BONE MINERAL DENSITY STUDY INDICATION: ??Postmenopausal ovarian failure - osteoporosis screening. FINDINGS: The average bone mineral density from L1 to L4 is 1.418 g/cm2. T-score is 2.0. Z-score is 2.0. The average bone mineral density of the total right hip is 1.147 g/cm2. T-score is 1.1. ??Z-score is 1.2. When compared to previous examination of 12/01/2009 bone mineral density has decreased 3.6% in the proximal femur and has increased 8.1% in the lumbar spine. ASSESSMENT: This patient is considered normal according to World Health Organization criteria. Fracture risk is low. WORLD HEALTH ORGANIZATION DEFINITIONS OSTEOPENIA = -1 TO -2.5 SD BELOW T-SCORE. OSTEOPOROSIS = LESS THAN -2.5 SD BELOW T-SCORE Edited by Meredith Gary on 05/29/2014 3:16 PM Procedure Note Judie Moreno MD - 05/29/2014 BONE MINERAL DENSITY STUDY INDICATION: Postmenopausal ovarian failure - osteoporosis screening. FINDINGS: The average bone mineral density from L1 to L4 is 1.418 g/cm2. T-score is 2.0. Z-score is 2.0. The average bone mineral density of the total right hip is 1.147 g/cm2. T-score is 1.1. Z-score is 1.2. When compared to previous examination of 12/01/2009 bone mineral density has decreased 3.6% in the proximal femur and has increased 8.1% in the lumbar spine. ASSESSMENT: This patient is considered normal according to World Health Organization criteria. Fracture risk is low. WORLD HEALTH ORGANIZATION DEFINITIONS OSTEOPENIA = -1 TO -2.5 SD BELOW T-SCORE. OSTEOPOROSIS = LESS THAN -2.5 SD BELOW T-SCORE Edited by Meredith Gary on 05/29/2014 3:16 PM Jerman Gonzalez MD DEXA ORDERABLES * XR CHEST PA AND LATERAL (12/18/2013 1:00 PM CDT) Anatomical Region Laterality Modality Chest Radiographic Peyton ging 12/18/2013 1:18 PM CDT Impressions 12/18/2013 4:49 PM CDT No acute disease in the chest. Edited by Meredith Gary on 12/18/2013 3:20 PM Narrative 12/18/2013 4:49 PM CDT CHEST - TWO VIEWS INDICATION: Cough and difficulty breathing. ??The patient states that she had to sleep sitting up last night because of breathing problems. . COMPARISON: November 14, 2012 FINDINGS: Frontal and lateral views of the chest show the lungs to be clear of confluent infiltrates. There are no pleural effusions. The heart size is normal. ??The old fracture deformity of the left clavicle is again noted.. Procedure Note Jaskaran Tejada MD - 12/18/2013 CHEST - TWO VIEWS INDICATION: Cough and difficulty breathing. The patient states that she had to sleep sitting up last night because of breathing problems. . COMPARISON: November 14, 2012 FINDINGS: Frontal and lateral views of the chest show the lungs to be clear of confluent infiltrates. There are no pleural effusions. The heart size is normal. The old fracture deformity of the left clavicle is again noted.. IMPRESSION No acute disease in the chest. Edited by Meredith Gary on 12/18/2013 3:20 PM Jerman Gonzalez MD DIAGNOSTIC IMAGING O RDERABLES * INFLUENZA A+B - POINT OF CARE (AMB) (12/18/2013 12:39 PM CDT) Influenza A Antigen Rapid Negative Negative Influenza B Antigen Rapid Negative Negative Influenza Internal Control NEGATIVE - POSITIVE Influenza Lot Number Influenza Expiration Date Nasopharyngeal swab (specimen) NASOPHARYNGEAL SWAB / Unknown Jerman Gonzalez MD LAB - POINT OF CARE ORDERABLES * POLYSOMNOGRAM WITH CPAP IF INDICATED (04/08/2013 9:45 AM CDT) Narrative [facility] - 04/08/2013 9:45 AM CDT Madan Arzate MD ? 04/08/2013 ??9:45 AM DIAGNOSTIC POLYSOMNOGRAPHY WITH SPLIT NIGHT PROTOCOL Name: ??David Samayoa Date of : ??1955 Date of Test: ??04/06/13 Date of interpretation: 04/08/2013 Indication for the study: ?? Symptoms suggestive of obstructive sleep apnea. METHOD: At the [facility], the patient had one night of diagnostic polysomnography (Split Night Protocol) with simultaneous measurement of EEG (electroencephalography), EOG (electro-oculography), EMG (electromyography), EKG, airflow, respiratory effort, (abdominal and rib cage movement), oxygen saturation, breathing sounds and leg movements. All data was visually scored and analyzed by standard criteria. I personally reviewed the raw data,tabulated data and Intraprocedure documentation. FINDINGS: ?? Sleep architecture: ??Sleep latency is normal. ??Sleep efficiency is reduced. This may be related to the unfamiliar environment of the sleep center (First night effect). The patient may have ?? insomnia and clinical co relation is required. Sleep is fragmented. The cause of sleep disruption is a combination of respiratory events and spontaneous arousals. N1 ?? Sleep: ??1.3 % ? N2 ?? Sleep: ??53.3 % ? N3 ?? Sleep: ??36.5 % REM Sleep: 8.8 % REM latency is increased ? Respiratory monitoring: ?? Baseline data was obtained for 134 minutes The patient has Obstructive Sleep Apnea (SIMRAN). AHI is 9.8 /hr. ?? SIMRAN is mild The patient had moderate snoring in the study. Oxygen desaturation did occur to as low as 83 %. Oxygen desaturations were associated with respiratory events. CPAP Titration: CPAP titration was started at 4 cm and titrated up to 15 cm. At CPAP of 15 cm, the patient slept for 54 minutes. Sleep efficiency was 64 %. AHI was ??0 /hr. The patient had ??evidence of rebound REM. Nocturnal ??hypoxemia resolved with CPAP. Additional oxygen was not required. Snoring resolved with CPAP. Overall, at optimal CPAP, sleep architecture improved with better sleep efficiency and reduced arousals. The mask used in the study: Resmed Mirage Quattro, FX, FFM, medium , along with C Flex and heated humidity. Movement events: Periodic Limb Movements are present. They are moderate based on arousal index of 26 per hour. Periodic Limb Movements are common during CPAP titration and usually resolve with continued CPAP treatment. Treatment is required only if the patient has concurrent symptoms of restless legs. Cardiac monitoring: ?? No arrhythmias were detected during this sleep study. ?? EEG: ?No epileptiform features Unusual behavior during sleep: ? None IMPRESSION ?? Obstructive Sleep Apnea, mild. AHI 9.8 per hour ? (327.23) ? Periodic Limb Movements ?(327.51). ?? RECOMMENDATION: CPAP at ??15 cm/H2O FOLLOW UP I will call the patient and arrange for CPAP and follow up. MADAN ARZATE MD Pulmonary and Sleep Medicine. Pager: [phone] ?? Procedure Note Madan Arzate MD - 04/08/2013 9:39 AM CDT DIAGNOSTIC POLYSOMNOGRAPHY WITH SPLIT NIGHT PROTOCOL Name: David Samayoa Date of : 1955 Date of Test: 04/06/13 Date of interpretation: 04/08/2013 Indication for the study: Symptoms suggestive of obstructive sleepapnea. METHOD: At the [facility], the patient had one night of diagnosticpolysomnography (Split Night Protocol) with simultaneous measurement ofEEG (electroencephalography), EOG (electro-oculography), EMG(electromyography), EKG, airflow, respiratory effort, (abdominal and ribcage movement), oxygen saturation, breathing sounds and leg movements. Alldata was visually scored and analyzed by standard criteria. I personallyreviewed the raw data,tabulated data and Intraprocedure documentation. FINDINGS: Sleep architecture: Sleep latency is normal. Sleep efficiency isreduced. This may be related to the unfamiliar environment of the sleepcenter (First night effect). The patient may have insomnia and clinicalco relation is required. Sleep is fragmented. The cause of sleep disruption is a combination ofrespiratory events and spontaneous arousals. N1 Sleep: 1.3 % N2 Sleep: 53.3 % N3 Sleep: 36.5 % REM Sleep: 8.8 % REM latency is increased Respiratory monitoring: Baseline data was obtained for 134 minutes The patient has Obstructive Sleep Apnea (SIMRAN). AHI is 9.8 /hr. SIMRAN ismild The patient had moderate snoring in the study. Oxygen desaturation did occur to as low as 83 %. Oxygen desaturations wereassociated with respiratory events. CPAP Titration: CPAP titration was started at 4 cm and titrated up to 15 cm. At CPAP of 15cm, the patient slept for 54 minutes. Sleep efficiency was 64 %. AHI was0 /hr. The patient had evidence of rebound REM. Nocturnal hypoxemia resolved with CPAP. Additional oxygen was notrequired. Snoring resolved with CPAP. Overall, at optimal CPAP, sleep architecture improved with better sleepefficiency and reduced arousals. The mask used in the study: Resmed Mirage Quattro, FX, FFM, medium , along with C Flex and heatedhumidity. Movement events: Periodic Limb Movements are present. They are moderate based on arousalindex of 26 per hour. Periodic Limb Movements are common during CPAPtitration and usually resolve with continued CPAP treatment. Treatment isrequired only if the patient has concurrent symptoms of restless legs. Cardiac monitoring: No arrhythmias were detected during this sleepstudy. EEG: No epileptiform features Unusual behavior during sleep: None IMPRESSION ?? Obstructive Sleep Apnea, mild. AHI 9.8 per hour(327.23) ?? Periodic Limb Movements(327.51). RECOMMENDATION: CPAP at 15 cm/H2O FOLLOW UP I will call the patient and arrange for CPAP and follow up. MADAN ARZATE MD Pulmonary and Sleep Medicine. Pager: [phone] Miah Bowman DO SLEEP CENTER ORDERAB LES [facility] * (ABNORMAL) URINALYSIS MICROSCOPIC ONLY REFLEXED (PO REF LAB) (12/06/2012 1:35 PM CDT) Only the most recent of2 resultswithin the time period is included. WBC UA 0-5 0 - 5 /hpf [facility] ACCOUNT BILL RBC UA 0-3 0 - 3 /hpf [facility] ACCOUNT BILL Epithelial Cells (non renal) 0-10 0 - 10 /hpf [facility] ACCOUNT BILL Epithelial Cells (renal) NOT NEEDED [facility] ACCOUNT BILL Comment:Ancillary determined the test is not needed Casts ua NOT NEEDED [facility] ACCOUNT BILL Comment:Ancillary determined the test is not needed Casts UA NOT NEEDED [facility] ACCOUNT BILL Comment:Ancillary determined the test is not needed Crystals UA NOT NEEDED [facility] ACCOUNT BILL Comment:Ancillary determined the test is not needed Crystals UA NOT NEEDED [facility] ACCOUNT BILL Comment:Ancillary determined the test is not needed Mucus UA Present Not Estab. [facility] ACCOUNT BILL Bacteria UA Many(A) None seen/Few [facility] ACCOUNT BILL Yeast UA NOT NEEDED [facility] ACCOUNT BILL Comment:Ancillary determined the test is not needed Trichomonas UA NOT NEEDED [facility] ACCOUNT BILL Comment:Ancillary determined the test is not needed Comment Urine NOT NEEDED [facility] ACCOUNT BILL Comment:Ancillary determined the test is not needed 12/06/2012 1:35 PM CDT 12/06/2012 3:43 PM CDT Narrative Resulting Agency Comment [facility] [address] ??[facility] [phone] Miah Bowman DO LAB - URINALYSIS ORD ERABLES [facility] ACCOUNT BILL * (ABNORMAL) URINALYSIS DIPSTICK AUTO (12/06/2012 1:35 PM CDT) Only the most recent of4 resultswithin the time period is included. Specific [place] UA 1.020 1.005 - 1.030 [facility] ACCOUNT BILL pH UA 5.5 5.0 - 7.5 [facility] ACCOUNT BILL Color UA Yellow Yellow [facility] ACCOUNT BILL Appearance Clear Clear [facility] ACCOUNT BILL Leukocyte UA Negative Negative [facility] ACCOUNT BILL Protein UA Negative Negative/Tr prabhu [facility] ACCOUNT BILL Glucose UA Negative Negative [facility] ACCOUNT BILL Glucose Reflex NOT NEEDED [facility] ACCOUNT BILL Comment:Ancillary determined the test is not needed Ketone UA Negative Negative [facility] ACCOUNT BILL Occult Blood Urine Trace(A) Negative [facility] ACCOUNT BILL Bilirubin UA Negative Negative [facility] ACCOUNT BILL Urobilinogen 0.2 0.0 - 1.9 mg/dL [facility] ACCOUNT BILL Nitrite UA Positive(A) Negative [facility] ACCOUNT BILL Microscopic Examination Urine See below: [facility] ACCOUNT BILL Urine specimen (specimen) URINE SPECIMEN OBTAINED BY CLEAN CATCH PROCEDURE / Unknown 12/06/2012 1:35 PM CDT 12/06/2012 3:43 PM CDT Narrative Resulting Agency Comment [facility] [address] ??[facility] [phone] Miah Bowman DO LAB - URINALYSIS ORD ERABLES [facility] ACCOUNT BILL * HEPATITIS SCREEN ACUTE (12/06/2012 1:31 PM CDT) Hepatitis A Virus Antibody IgM Negative Negative [facility] ACCOUNT BILL Hepatitis B Virus Surface Antigen Negative Negative [facility] ACCOUNT BILL Hepatitis B Core Virus Antibody IgM Negative Negative [facility] ACCOUNT BILL Hepatitis C Virus Antibody <0.1 0.0 - [...] with additional ? RIBA or PCR testing. 12/06/2012 1:31 PM CDT 12/10/2012 9:01 PM CDT Narrative Resulting Agency Comment [facility] [place] [address] ??[place] [phone] Miah Bowman DO LAB - CHEMISTRY DOM [place] [facility] ACCOUNT BILL * HEPATITIS C ANTIBODY (12/06/2012 1:31 PM [...] PM CDT Narrative Resulting Agency Comment [facility] [address] ??[facility] [phone] Miah Bowman DO LAB - CHEMISTRY ORDE EVA Performing Organization Address [facility] de Phone Number [facility] ACCOUNT BILL * CARDIAC RHYTHM STRIP ORDER (11/16/2012 11:47 AM CDT) Narrative 11/16/2012 11:47 AM CDT Procedure Note Document, Scanned - 11/16/2012 11:47 AM CDT Scanned Document CARDIAC SERVICES ORD ERABLES * (ABNORMAL) GLUCOSE - POINT OF CARE (11/15/2012 3:56 PM CDT) Only the most recent of2 resultswithin the time period is included. Pathologist [facility] [place] Glucose WB/POC 194(H) 70 - 106 mg/dL 11/15/2012 7:25 PM CDT [facility] Blood specimen (specimen) BLOOD SPECIMEN / Unknown 11/15/2012 3:56 PM CDT 11/15/2012 7:25 PM CDT Viridiana Buckley MD LAB - POINT OF CARE ORDERABLES Performing Organization Address City/[facility]/ZIP Co de Phone Number [facility] [address] [place] [address] * NM MYOCARD PERFUSION SPECT STRESS AND REST (11/15/2012 1:05 PM CDT) Only the most recent of2 resultswithin the time period is included. Anatomical Region Laterality Modality Chest Nuclear Medicine 11/15/2012 1:54 PM CDT Impressions 11/15/2012 1:54 PM CDT 1. ??NO EVIDENCE OF PHARMACOLOGICALLY INDUCED MYOCARDIAL PERFUSION ABNORMALITIES. 2. ??NORMAL LEFT VENTRICULAR WALL MOTION, WITH A LEFT VENTRICULAR EJECTION FRACTION OF 65%. Narrative 11/15/2012 1:54 PM CDT MYOCARDIAL IMAGING - SPECT AND WALL MOTION ANALYSIS INDICATION: Chest pain. Coronary artery disease factors include hypertension, diabetes, obesity (5'5 230#) and hypercholesterolemia. She is a former smoker. RADIOPHARMACEUTICAL: 10 mCi of ??Tc99m Tetrofosmin at rest and 30 mCi Tc99m Tetrofosmin at stress. STRESS AGENT: 0.4mg Lexiscan, i.v. TECHNIQUE: After the resting SPECT images were made, the stress agent was given to the patient, under the supervision of the accompanying brewing director. ??The stress dose of tracer was given, and they were reimaged, again using SPECT technique. FINDINGS: The stress and resting images show uniform tracer distribution throughout the left ventricle. There is decreased tracer uptake over the anteroseptal region, near the base, on both resting and stress images, and this may represent attenuation from overlying breast tissue. No reversible perfusion abnormalities are seen. The left ventricle is not enlarged, with a calculated left ventricular end-diastolic volume of 86 ml. WALL MOTION ANALYSIS: 3-D reconstruction of the gated data shows synchronous contraction of the left ventricle. No regional wall motion abnormalities are seen. The composite left ventricular ejection fraction is 65%. Procedure Note Hay Bowens MD - 11/15/2012 MYOCARDIAL IMAGING - SPECT AND WALL MOTION ANALYSIS INDICATION: Chest pain. Coronary artery disease factors include hypertension, diabetes, obesity (5'5 230#) and hypercholesterolemia. She is a former smoker. RADIOPHARMACEUTICAL: 10 mCi of Tc99m Tetrofosmin at rest and 30 mCi Tc99m Tetrofosmin at stress. STRESS AGENT: 0.4mg Lexiscan, i.v. TECHNIQUE: After the resting SPECT images were made, the stress agent was given to the patient, under the supervision of the accompanying brewing director. The stress dose of tracer was given, and they were reimaged, again using SPECT technique. FINDINGS: The stress and resting images show uniform tracer distribution throughout the left ventricle. There is decreased tracer uptake over the anteroseptal region, near the base, on both resting and stress images, and this may represent attenuation from overlying breast tissue. No reversible perfusion abnormalities are seen. The left ventricle is not enlarged, with a calculated left ventricular end-diastolic volume of 86 ml. WALL MOTION ANALYSIS: 3-D reconstruction of the gated data shows synchronous contraction of the left ventricle. No regional wall motion abnormalities are seen. The composite left ventricular ejection fraction is 65%. IMPRESSION 1. NO EVIDENCE OF PHARMACOLOGICALLY INDUCED MYOCARDIAL PERFUSION ABNORMALITIES. 2. NORMAL LEFT VENTRICULAR WALL MOTION, WITH A LEFT VENTRICULAR EJECTION FRACTION OF 65%. Viridiana Buckley MD NM ORDERABLES * STRESS TEST LEXISCAN (NUCLEAR) (11/15/2012 12:00 PM CDT) 11/15/2012 12:0 0 PM CDT Narrative Transcriptions Rima Rader MD - 11/15/2012 6:42 PM CDT [facility] CHEMICAL STRESS TEST PATIENT: DAVID SAMAYOA MR#: [id number] DATE OF SERVICE: 11/15/2012 CSN: [id number] : 1955 ROOM: [place] [address] REFERRING PHYSICIAN: JOHN JACQUES ADMIT DATE: 11/14/2012 RESTING EKG: Baseline EKG shows normal sinus rhythm, within normallimits. STRESS PROTOCOL: Patient received Lexiscan 0.4 mg. The patient did not experience any chest pain. CONCLUSION: 1. No electrocardiogram changes diagnostic of ischemia noted. 2. Nuclear imaging reports to follow. RIMA RADER MD AV/MODL #: [id number] cc: Miah Bowman DO CHEMICAL STRESS TEST - DP Viridiana Buckley MD CARDIAC SERVICES ORD ERABLES [facility] * ECHOCARDIOGRAM 2D WITH DOPPLER (11/15/2012 11:27 AM CDT) 11/15/2012 11:2 7 AM CDT Narrative [facility] - 11/15/2012 3:59 PM CDT ECHOCARDIOGRAPHY REPORT [address] [address] Transthoracic Echocardiogram 2D, M-mode, Doppler, and Color Doppler Date of Service: ??11/15/2012 Patient: DAVID SAMAYOA : 1955 Age: 57 years Gender: Female Race: Height: 65 in Weight: 230 lb BSA: 2.1 m?? Allergies: TETRACYCLINE Diagnoses: 786.50 - CHEST PAIN NOS Reading Physician: ??Douglas Rubi MD Referring Physician: ??Viridiana Buckley STRINGED INSTRUMENT TUNER: ??Selina Cartagena, [facility] Cardiology Group: ??[facility] Summary: - ??Procedure information: - ??Room 223 @ 11:27AM - ??Left ventricle: - ??Systolic function was normal. Ejection fraction was estimated in the range of 55 % to 65 %. - ??There were no regional wall motion abnormalities. - ??Wall thickness was increased. - ??There was mild concentric hypertrophy. - ??Doppler parameters were consistent with abnormal left ventricular relaxation (grade 1 diastolic dysfunction). - ??Tricuspid valve: - ??There was mild regurgitation. Indications: Evaluate chest pain. History: Symptoms: chest pain. Prior history: Risk factors: hypertension, oral hypoglycemic-treated diabetes, and medication-treated hypercholesterolemia. Procedure: The study was performed in the [facility]. This was a routine study. Room 223 @ 11:27AM The transthoracic approach was used. The study included complete 2D imaging, M-mode, complete spectral Doppler, and color Doppler. Systolic blood pressure was 133 mmHg. Diastolic blood pressure was 73 mmHg. Left ventricle: Size was normal. Systolic function was normal. Ejection fraction was estimated in the range of 55 % to 65 %. There were no regional wall motion abnormalities. Wall thickness was increased. There was mild concentric hypertrophy. Doppler: Doppler parameters were consistent with abnormal left ventricular relaxation (grade 1 diastolic dysfunction). Aortic valve: The valve was trileaflet. Leaflets exhibited normal thickness and normal cuspal separation. Doppler: Transaortic velocity was within the normal range. There was no stenosis. There was no regurgitation. Aorta: The root exhibited normal size. Mitral valve: Valve structure was normal. There was normal leaflet separation. Doppler: The transmitral velocity was within the normal range. There was no evidence for stenosis. There was trivial regurgitation. Left atrium: Size was normal. Right atrium: Size was normal. Right ventricle: The size was normal. Systolic function was normal. Wall thickness was normal. Tricuspid valve: The valve structure was normal. There was normal leaflet separation. Doppler: The transtricuspid velocity was within the normal range. There was no evidence for tricuspid stenosis. There was mild regurgitation. Pulmonic valve: Leaflets exhibited normal thickness, no calcification, and normal cuspal separation. Doppler: The transpulmonic velocity was within the normal range. There was no regurgitation. Pulmonary artery: The size was normal. Doppler: Systolic pressure was within the normal range. Systemic veins: IVC: Not reported. SVC: Not reported. Innominate vein: Not reported. Hepatic veins: Not reported. Pericardium: There was no pericardial effusion. System measurement tables CW PV Vmax: 1.2 m/s AV Vmax: 1.4 m/s AV maxP.8 mmHg PV maxP.3 mmHg TR Vmax: 2.4 m/s TR maxP.1 mmHg MM LA Diam: 3.5 cm AV Cusp: 1.8 cm Ao Diam: 2.5 cm IVSd: 1 cm IVSs: 1.8 cm LVIDd: 4.7 cm LVIDs: 2.9 cm LVPWd: 1.3 cm PW LVOT Vmax: 1.2 m/s E/e' Lateral Ratio: 6.5 E/e' Septal Ratio: 10.9 MV A Amador: 0.9 m/s MV Dec Costilla: 2.6 m/s2 MV E Amador: 0.6 m/s MV E/A Ratio: 0.7 Prepared and signed by Douglas Rubi MD Signed 11/15/2012 15:59:10 Procedure Note Douglas Rubi MD - 11/15/2012 ECHOCARDIOGRAPHY REPORT [facility] [address] [place] [address] Transthoracic Echocardiogram 2D, M-mode, Doppler, and Color Doppler Date of Service: 11/15/2012 Patient: DAVID SAMAYOA [facility] #: [id number] : 1955 Age: 57 years Gender: Female Race: Height: 65 in Weight: 230 lb BSA: 2.1 m?? Allergies: TETRACYCLINE Diagnoses: 786.50 - CHEST PAIN NOS Reading Physician: Douglas Rubi MD Referring Physician: Viridiana Buckley STRINGED INSTRUMENT TUNER: MAICO Zhao Cardiology Group: [facility] Summary: - Procedure information: - Room 223 @ 11:27AM - Left ventricle: - Systolic function was normal. Ejection fraction was estimated in the range of 55 % to 65 %. - There were no regional wall motion abnormalities. - Wall thickness was increased. - There was mild concentric hypertrophy. - Doppler parameters were consistent with abnormal left ventricular relaxation (grade 1 diastolic dysfunction). - Tricuspid valve: - There was mild regurgitation. Indications: Evaluate chest pain. History: Symptoms: chest pain. Prior history: Risk factors: hypertension, oral hypoglycemic-treated diabetes, and medication-treated hypercholesterolemia. Procedure: The study was performed in the [facility]. This was a routine study. Room 223 @ 11:27AM The transthoracic approach was used. The study included complete 2D imaging, M-mode, complete spectral Doppler, and color Doppler. Systolic blood pressure was 133 mmHg. Diastolic blood pressure was 73 mmHg. Left ventricle: Size was normal. Systolic function was normal. Ejection fraction was estimated in the range of 55 % to 65 %. There were no regional wall motion abnormalities. Wall thickness was increased. There was mild concentric hypertrophy. Doppler: Doppler parameters were consistent with abnormal left ventricular relaxation (grade 1 diastolic dysfunction). Aortic valve: The valve was trileaflet. Leaflets exhibited normal thickness and normal cuspal separation. Doppler: Transaortic velocity was within the normal range. There was no stenosis. There was no regurgitation. Aorta: The root exhibited normal size. Mitral valve: Valve structure was normal. There was normal leaflet separation. Doppler: The transmitral velocity was within the normal range. There was no evidence for stenosis. There was trivial regurgitation. Left atrium: Size was normal. Right atrium: Size was normal. Right ventricle: The size was normal. Systolic function was normal. Wall thickness was normal. Tricuspid valve: The valve structure was normal. There was normal leaflet separation. Doppler: The transtricuspid velocity was within the normal range. There was no evidence for tricuspid stenosis. There was mild regurgitation. Pulmonic valve: Leaflets exhibited normal thickness, no calcification, and normal cuspal separation. Doppler: The transpulmonic velocity was within the normal range. There was no regurgitation. Pulmonary artery: The size was normal. Doppler: Systolic pressure was within the normal range. Systemic veins: IVC: Not reported. SVC: Not reported. Innominate vein: Not reported. Hepatic veins: Not reported. Pericardium: There was no pericardial effusion. System measurement tables CW PV Vmax: 1.2 m/s AV Vmax: 1.4 m/s AV maxP.8 mmHg PV maxP.3 mmHg TR Vmax: 2.4 m/s TR maxP.1 mmHg MM LA Diam: 3.5 cm AV Cusp: 1.8 cm Ao Diam: 2.5 cm IVSd: 1 cm IVSs: 1.8 cm LVIDd: 4.7 cm LVIDs: 2.9 cm LVPWd: 1.3 cm PW LVOT Vmax: 1.2 m/s E/e' Lateral Ratio: 6.5 E/e' Septal Ratio: 10.9 MV A Amador: 0.9 m/s MV Dec Costilla: 2.6 m/s2 MV E Amador: 0.6 m/s MV E/A Ratio: 0.7 Prepared and signed by Douglas Rubi MD Signed 11/15/2012 15:59:10 Viridiana Buckley MD ECHO ORDERABLES [facility] * TROPONIN I (11/15/2012 4:30 AM CDT) Only the most recent of2 resultswithin the time period is included. Troponin I <0.015 <0.100 ng/mL 11/15/2012 5:10 AM CDT [facility] Blood specimen (specimen) BLOOD SPECIMEN / Unknown 11/15/2012 4:30 AM CDT 11/15/2012 4:36 AM CDT Narrative [facility] - 11/15/2012 5:10 AM CDT Reference ranges: ?Normal <0.10 Indeterminate ??0.10-0.99 ?Positive >0.99 John Jacques DO LAB - CHEMISTRY OR DERABLES [facility] [address] [place] [address] * XR CHEST 1VW PORTABLE (11/14/2012 6:47 PM CDT) Anatomical Region Laterality Modality Chest Radiographic Peyton ging 11/14/2012 6:52 PM CDT Impressions 11/14/2012 6:52 PM CDT No acute disease. Narrative 11/14/2012 6:52 PM CDT AP Portable Chest Indication: Chest pain Findings: A single portable view of the chest shows the lungs are clear. Mediastinal contour and heart size are within normal limits. Pulmonary vascularity is unremarkable. Procedure Note Aide Diaz MD - 11/14/2012 AP Portable Chest Indication: Chest pain Findings: A single portable view of the chest shows the lungs are clear. Mediastinal contour and heart size are within normal limits. Pulmonary vascularity is unremarkable. IMPRESSION No acute disease. John Jacques DO DIAGNOSTIC IMAGING ORDERABLES * D-DIMER (11/14/2012 6:30 PM CDT) Pathologist [facility] D-Dimer 0.37 0 - 0.5 mg/L FE 11/14/2012 7:10 PM CDT [facility] Blood specimen (specimen) BLOOD SPECIMEN / Unknown 11/14/2012 6:30 PM CDT 11/14/2012 6:38 PM CDT Narrative [facility] - 11/14/2012 7:10 PM CDT The innovance D-dimer assay now in use at [facility], [facility] and [facility] is intended for use as an aid in diagnosis of venous thromboembolism [(VTE): deep vein thrombosis (DVT), pulmonary embolism (PE), and disseminated intravascular coagulation (DIC)], and has received FDA approval to exclude VTE in patients with low or moderate pretest probability of PE or DVT (per Wells' rules). ?At a clinical cut-off value 0.50 mg/L FEU, the Negative Predictive Value of this assay is 99.8% for excluding PE and 100% for excluding DVT. ??A very low percentage of patients with VTE may yield D-dimer results below cut-off value. An elevated D-dimer result has low specificity (40.4% for PE, 35.5% for DVT) and is a poor predictor of VTE. An elevated D-dimer result may indicate DIC in the appropriate clinical setting. ??Results of this test should always be interpreted in conjunction with the patient's medical history, clinical presentation, and other findings. John Jacques DO LAB - COAGULATION ORDERABLES [facility] [address] [place] [address] * EKG 12-LEAD (11/14/2012 5:40 PM CDT) Only the most recent of2 resultswithin the time period is included. Ventricular Rate 98 BPM [facility] Atrial Rate 98 BPM [facility] P-R Interval 146 ms [facility] QRS Duration ms 70 ms [facility] Q-T Interval ms 342 ms [facility] QTC Calculation (Bezet) 436 ms [facility] Calculated P [place] 57 degrees [facility] Calculated R [place] 25 degrees [facility] Calculated T [place] 30 degrees [facility] Interpretation EKG Normal sinus rhythm Possible Left atrial enlargement Abnormal ECG When compared with ECG of 27-OCT-2010 16:10, ST now depressed in Inferior leads Confirmed by MD ELICIA, DOUGLAS ([id number]) on 11/15/2012 9:37:55 AM [facility] 11/14/2012 5:40 PM CDT 11/15/2012 9:37 AM CDT Narrative [facility] - 11/15/2012 9:39 AM CDT Procedure Note Document, Scanned - 11/15/2012 7:28 AM CDT Transcriptions Document, Scanned - 11/15/2012 9:39 AM CDT John Jacques DO ECG ORDERABLES [facility] * ENDOSCOPY, COLON, DIAGNOSTIC (07/05/2012 3:18 PM CDT) Narrative Transcriptions Jalen Bloom DO - 07/05/2012 3:18 PM CDT Jalen Bloom DO GI PROCEDURE ORDER ALEK [facility] [place] [address] * (ABNORMAL) GENERAL HEALTH PANEL (04/08/2012 9:01 AM CDT) Only the most recent of4 resultswithin the time period is included. Glucose 116(H) 65 - 99 mg/dL [facility] ACCOUNT BILL BUN 15 6 - 24 mg/dL [facility] ACCOUNT BILL Creatinine 0.54(L) 0.57 - 1.00 mg/dL [facility] ACCOUNT BILL eGFR by MDRD 104 >59 mL/min/1. 73 [facility] ACCOUNT BILL eGFR by MDRD 120 >59 mL/min/1. 73 [facility] ACCOUNT BILL BUN/Creatinine Ratio 28(H) 9 - 23 [facility] ACCOUNT BILL Sodium 138 134 - 144 mmol/L [facility] ACCOUNT BILL Potassium 3.6 3.5 - 5.2 mmol/L [facility] ACCOUNT BILL Chloride 100 97 - 108 mmol/L [facility] ACCOUNT BILL CO2 24 20 - 32 mmol/L [facility] ACCOUNT BILL Calcium 9.0 8.7 - 10.2 mg/dL [facility] ACCOUNT BILL Protein Total 6.6 6.0 - 8.5 g/dL [facility] ACCOUNT BILL Albumin 3.8 3.5 - 5.5 g/dL [facility] ACCOUNT BILL Globulin Total 2.8 1.5 - 4.5 g/dL [facility] ACCOUNT BILL Albumin/Globulin Ratio 1.4 1.1 - 2.5 [facility] ACCOUNT BILL Bilirubin Total 0.3 0.0 - 1.2 mg/dL [facility] ACCOUNT BILL Alkaline Phosphatase 86 25 - 150 IU/L [facility] ACCOUNT BILL AST 19 0 - 40 IU/L [facility] ACCOUNT BILL ALT 25 0 - 40 IU/L [facility] ACCOUNT BILL TSH 3.360 0.450 - 4.500 uIU/mL [facility] ACCOUNT BILL WBC 9.2 4.0 - 10.5 x10E3/uL [facility] ACCOUNT BILL RBC 4.41 3.77 - 5.28 x10E6/uL [facility] ACCOUNT BILL Hemoglobin 12.6 11.1 - 15.9 g/dL [facility] ACCOUNT BILL Hematocrit 37.7 34.0 - 46.6 % [facility] ACCOUNT BILL MCV 86 79 - 97 fL [facility] ACCOUNT BILL MCH 28.6 26.6 - 33.0 pg [facility] ACCOUNT BILL MCHC 33.4 31.5 - 35.7 g/dL [facility] ACCOUNT BILL RDW 13.7 12.3 - 15.4 % [facility] ACCOUNT BILL Platelet Count 239 140 - 415 x10E3/uL [facility] ACCOUNT BILL Granulocytes % 57 40 - 74 % [facility] ACCOUNT BILL Lymphocytes % 33 14 - 46 % [facility] ACCOUNT BILL Monocytes % 7 4 - 13 % [facility] ACCOUNT BILL Eosinophils % 3 0 - 7 % [facility] ACCOUNT BILL Basophils % 0 0 - 3 % [facility] ACCOUNT BILL Immature Cells NOT NEEDED [facility] ACCOUNT BILL Comment:Ancillary determined the test is not needed Granulocytes Absolute 5.2 1.8 - 7.8 x10E3/uL [facility] ACCOUNT BILL Lymphocytes Absolute 3.0 0.7 - 4.5 x10E3/uL [facility] ACCOUNT BILL Monocytes Absolute 0.7 0.1 - 1.0 x10E3/uL [facility] ACCOUNT BILL Eosinophils Absolute 0.2 0.0 - 0.4 x10E3/uL [facility] ACCOUNT BILL Basophils Absolute 0.0 0.0 - 0.2 x10E3/uL [facility] ACCOUNT BILL Immature Granulocytes 0 0 - 2 % [facility] ACCOUNT BILL Immature Granulocytes Absolute 0.0 0.0 - 0.1 x10E3/uL [facility] ACCOUNT BILL nRBC NOT NEEDED [facility] ACCOUNT BILL Comment:Ancillary determined the test is not needed Comment Hematology NOT NEEDED [facility] ACCOUNT BILL Comment:Ancillary determined the test is not needed BLOOD SPECIMEN / Unknown 04/08/2012 9:01 AM CDT 04/08/2012 5:53 PM CDT Narrative Resulting Agency Comment [facility] [place] [id number] [facility] ??[facility] [id number] Miah Bowman DO LAB - CHEMISTRY DOM VELASQUEZ [facility] ACCOUNT BILL * (ABNORMAL) LIPID PROFILE W TCHOL/HDL (PO REF LAB) (04/08/2012 9:01 AM CDT) Only the most recent of5 resultswithin the time period is included. Cholesterol 138 100 - 199 mg/dL [facility] ACCOUNT BILL Triglycerides 201(H) 0 - 149 mg/dL [facility] ACCOUNT BILL HDL Cholesterol 48 >39 mg/dL [facility] ACCOUNT BILL Comment: According to ATP-III Guidelines, HDL-C >59 mg/dL is considered a negative risk factor for CHD. VLDL Calculated 40 5 - 40 mg/dL [facility] ACCOUNT BILL LDL Calculated 50 0 - 99 mg/dL [facility] ACCOUNT BILL Cholesterol/HDL Ratio 2.9 0.0 - 4.4 ratio units [facility] ACCOUNT BILL BLOOD SPECIMEN / Unknown 04/08/2012 9:01 AM CDT 04/08/2012 5:53 PM CDT Narrative Resulting Agency Comment [facility] [id number] [facility] ??[facility] [id number] Miah Bowman DO LAB - CHEMISTRY DOM VELASQUEZ Performing Organization Address [facility]/ZIP Co de Phone Number [facility] ACCOUNT BILL * STRESS TEST NUCLEAR (01/13/2011) 01/13/2011 Narrative Procedure Note Douglas Rubi MD - [facility]13[facility]2011 [facility] PATIENT: DAVID SAMAYOA [facility]#: [id number] DATE OF SERVICE: 01/13/2011CCT#: [id number] : 1955ROOM: REFERRING PHYSICIAN: ADMIT DATE: 01/13/2011 INDICATIONS: Ms. Samayoa is a 55 year old female who had myocardialperfusion imaging study done for evaluation of chest pain. Baseline ECG was within normal limits. INTERPRETATION: The patient was exercised according to the standard Bruceprotocol and completed 2 minutes of stage III for a total duration of 8minutes which equaled 9 METS placing her in functional class I. Sheachieved a peak heart rate of 150 per minute and a double product of27,000 before the test was terminated due to fatigue and shortness ofbreath. With exercise the patient did not report any chest pain. On theECG the patient was noted to have 0.5 to 1 mm of up-sloping ST segmentdepression at peak exercise in the inferior and lateral leads. Nosignificant arrhythmias were observed. In summary: The present myocardial perfusion imaging study reveals: Normal functional capacity. No evidence of exercise provoked myocardial ischemia on theelectrocardiogram. Correlation with the Myoview scan which will bereported separately is recommended. DOUGLAS RUBI MD AK/PM #: [id number] STRESS TEST - DP Miah Bowman DO CARDIAC SERVICES ORD ERABLES [facility] * EMG WITH NERVE CONDUCTION STUDY (09/19/2010) Erum Bhardwaj MD NEUROLOGY ORDERABLES * MRI KNEE WO CONT RIGHT (09/06/2010 5:09 PM POLICE COMMISSIONER) Anatomical Region Laterality Modality Lower Extremity Magnetic Resonan ce 09/06/2010 5:26 PM POLICE COMMISSIONER Narrative 09/06/2010 5:26 PM POLICE COMMISSIONER Examination: MRI right knee. Indication for examination: Right knee pain and limited range of motion. Previous trauma. Noncontrast T1 and T2-weighted sagittal and coronal T2-weighted axial images of the right knee are obtained. There is markedly advanced degenerative arthritic change in the patellofemoral compartment. There is full-thickness cartilaginous loss at the lateral facet. There is lateral subluxation of the patella with a shallow patellar groove at the distal femur. There appears to be thinning of the medial patellar retinaculum. There is mild edema within the superolateral aspect of the infrapatellar fat pad. Quadriceps and patella tendon appear intact. There is relatively mild degenerative arthritic change in the medial and lateral compartment. No discrete medial or lateral meniscus tear is identified. Medial and lateral collateral ligament appear intact as do the anterior and posterior cruciate ligament. There is a small moderate joint effusion with medial popliteal cyst formation. CONCLUSION: Advanced degenerative change patellofemoral compartment with lateral subluxation of the patella. There is a shallow patellar groove. There appears to be thinning of the medial patellar retinaculum. Mild arthritic change medial and lateral compartment. Grossly intact menisci, cruciate and collateral ligaments. Small to moderate joint effusion with medial popliteal cyst formation. Procedure Note Amanuel Mondragon MD - 09/06/2010 Examination: MRI right knee. Indication for examination: Right knee pain and limited range of motion. Previous trauma. Noncontrast T1 and T2-weighted sagittal and coronal T2-weighted axial images of the right knee are obtained. There is markedly advanced degenerative arthritic change in the patellofemoral compartment. There is full-thickness cartilaginous loss at the lateral facet. There is lateral subluxation of the patella with a shallow patellar groove at the distal femur. There appears to be thinning of the medial patellar retinaculum. There is mild edema within the superolateral aspect of the infrapatellar fat pad. Quadriceps and patella tendon appear intact. There is relatively mild degenerative arthritic change in the medial and lateral compartment. No discrete medial or lateral meniscus tear is identified. Medial and lateral collateral ligament appear intact as do the anterior and posterior cruciate ligament. There is a small moderate joint effusion with medial popliteal cyst formation. CONCLUSION: Advanced degenerative change patellofemoral compartment with lateral subluxation of the patella. There is a shallow patellar groove. There appears to be thinning of the medial patellar retinaculum. Mild arthritic change medial and lateral compartment. Grossly intact menisci, cruciate and collateral ligaments. Small to moderate joint effusion with medial popliteal cyst formation. Erum Bhardwaj MD MR ORDERABLES * XR HAND 3+ VW RIGHT (03/23/2010 7:47 PM CDT) Anatomical Region Laterality Modality Wrist / Hand Radiographic Peyton ging 03/23/2010 7:50 PM CDT Impressions 03/23/2010 8:04 PM CDT No acute bony injury is identified. Narrative 03/23/2010 8:04 PM CDT Indication: Medial right hand pain. Findings: Three views of the right hand are submitted. Moderate degenerative changes are present at the first carpometacarpal articulation manifested as joint space narrowing, osteophyte formation and bony sclerosis. Moderate degenerative changes are present at the interphalangeal joint of the thumb. Mild degenerative changes are present at the first MCP articulation manifested as joint space narrowing and osteophyte production. No acute bony injury is identified. No radiopaque foreign body is seen within the soft tissues. Procedure Note Judie Moreno MD - 03/23/2010 Indication: Medial right hand pain. Findings: Three views of the right hand are submitted. Moderate degenerative changes are present at the first carpometacarpal articulation manifested as joint space narrowing, osteophyte formation and bony sclerosis. Moderate degenerative changes are present at the interphalangeal joint of the thumb. Mild degenerative changes are present at the first MCP articulation manifested as joint space narrowing and osteophyte production. No acute bony injury is identified. No radiopaque foreign body is seen within the soft tissues. IMPRESSION No acute bony injury is identified. [facility] O RDERABLES * (ABNORMAL) URINALYSIS AUTO - POINT OF CARE (11/30/2009 3:51 PM CDT) Clarity UA POCT Color UA POCT Leukocyte UA trace Negative Nitrite UA POCT positive Negative Urobilinogen UA POCT .2 0.1 - 1.0 EU/dL Protein UA POCT neg Negative pH UA 6.5 5.0 - 8.0 pH units Blood UA large Negative Specific [place] UA POCT 1.010 1.002 - 1.030 Ketone UA neg Negative Bilirubin UA POCT neg Negative Glucose UA neg Negative Urine specimen (specimen) URINE / Unknown Miah Bowman DO LAB - POINT OF CARE ORDERABLES * PTT (08/17/2009 12:00 AM POLICE COMMISSIONER) PTT 26.2 24.0 - 32.0 seconds [facility] BLOOD SPECIMEN / Unknown 08/17/2009 08/17/2009 12:08 AM POLICE COMMISSIONER Gareth Hawkins MD LAB - COAGULATION OR DERABLES Performing Organization Address City/[facility]/ZIP Co de Phone Number [facility] [address] [place] [address] * PT-INR (08/17/2009 12:00 AM POLICE COMMISSIONER) PT 10.0 9.4 - 11.2 seconds [facility] INR 0.9 SEE BELOW [facility] Comment: 0.9-1.1 Normal 2.0-3.0 Conventional 2.5-3.5 Intensive BLOOD SPECIMEN / Unknown 08/17/2009 08/17/2009 12:08 AM POLICE COMMISSIONER Gareth Hawkins MD LAB - COAGULATION OR DERABLES Performing Organization Address [facility] de Phone Number [facility] [address] [place] [address] * (ABNORMAL) URINALYSIS MICROSCOPIC ONLY (03/16/2009 10:44 AM CDT) WBC UA 11-30(A) 0 - 5 /hpf [facility] ACCOUNT BILL RBC UA 0-3 0 - 3 /hpf [facility] ACCOUNT BILL Epithelial Cells (non renal) 0-10 0 - 10 /hpf [facility] ACCOUNT BILL Epithelial Cells (renal) NOT AVAIL. [facility] ACCOUNT BILL Casts ua Present(A) None seen /lpf [facility] ACCOUNT BILL Casts UA Hyaline casts N/A [facility] ACCOUNT BILL Crystals UA Present(A) N/A [facility] ACCOUNT BILL Crystals UA Amorphous Sediment N/A [facility] ACCOUNT BILL Mucus UA NOT AVAIL. [facility] ACCOUNT BILL Bacteria UA Few None seen/Few [facility] ACCOUNT BILL Yeast UA NOT AVAIL. [facility] ACCOUNT BILL Sperm UA NOT AVAIL. [facility] ACCOUNT BILL Trichomonas UA NOT AVAIL. [facility] ACCOUNT BILL Comment Urine NOT AVAIL. [facility] ACCOUNT BILL 03/16/2009 10:4 4 AM CDT 03/16/2009 6:04 PM CDT Narrative [facility] ACCOUNT BILL - 03/17/2009 7:38 AM CDT Additional Result Information EPITHELIAL CELLS (RENAL) /HPF URINE ([facility]): RESULT NOT AVAILABLE MUCUS THREADS ??URINE ([facility]): RESULT NOT AVAILABLE YEAST ??URINE ([facility]): RESULT NOT AVAILABLE SPERM ??URINE ([facility]): RESULT NOT AVAILABLE TRICHOMONAS ??URINE ([facility]): RESULT NOT AVAILABLE COMMENT ??URINE ([facility]): RESULT NOT AVAILABLE Resulting Agency Comment [facility] [address] ??[facility] [id number] Miah Bowman DO LAB - URINALYSIS ORD ERABLES [facility] ACCOUNT BILL * GROSS + MICRO EXAM (01/31/2008 2:00 PM CDT) Only the most recent of3 resultswithin the time period is included. Result CASE NUMBER [id number] Comment: ORDERING PHYSICIAN ??Flakita ALVARENGA SPECIMEN TYPE ?Cyst-lt thumb Date ? 02/03/2008 Physician ?Monico Alvarenga Gross Description ? The specimen is received in a formalin filled container labeled with the patient's name and mass/cyst left thumb and consists of glistening pale yellow, white, irregularly shaped fibrous tissue measuring 0.9 x 0.7 x 0.4 cm. ??The tissue is serially sectioned and submitted entirely into a single cassette. MS cs Microscopic Exam ? Microsection A reveals a ganglion cyst with no unusual features. GM/na Diagnosis ? I. ?Mass/cyst, left thumb, excision -- ?Ganglion cyst GM/na Piece Presser ? na Pathologist ?Rhoda Perez M.D. [place]. ?02/04/2008 1119 <1> CPT code ? 38527 MISCELLANEOUS SAMPLES / Unknown 01/31/2008 2:00 PM CDT 02/01/2008 3:13 AM CDT Historical Provider LAB - PATHOLOGY/C YTOLOGY ORDERABLES Care Teams Instructional Services Specialist Relationship Specialty Start Date End Date Jose R Peck MD [address] [place] [address] [address] [place] [address] PCP - General Internal Medicine 09/15/22 [place] [address] [facility] [address] [place] [address] Pulmonary Disease 05/19/19 [place] [address] [facility] [address] [place] [address] Endocrinology 07/30/19 [place] [address] [facility] [address] [place] [address] Anesthesiology-Pain Management 07/30/19
--- OUTSIDE RECORDS SUMMARY | 2024-09-25 13:26 | XMS_ITS | Encounter Summary ---
Author Organization [facility] Address [address] [facility] [place] [address] Care Team Providers Care Decorator Mannequin Name Role Phone Miah Bowman DO Primary Care Provider Lulu Yadav RN Unavailable Jerman Gonzalez MD Primary Care Provider [phone] Michael Jane CATALYST RECOVERY OPERATOR-ELECTRIC ORGAN INSPECTOR AND REPAIRER Primary Care Provider [phone] Krystal Rainey MD Primary Care Provider Carter Del Cid MD Unavailable Krystal Rainey MD Unavailable [phone] Esequiel Palmer MD Unavailable Pawan Severino MD Unavailable Krystal Rainey MD Unavailable [phone] Leann MorleyW Unavailable [phone] Jose R Peck MD Primary Care Provider Encounter Details Date Type Department Care Team (Late st Contact Info) Description 12/04/2011 [facility] Miah Bowman DO [address] [place] [address] Social History Tobacco Use Types Packs/Day Years Used Date Smoking Tobacco: Former Smokeless Tobacco: Never Comments:Quit in 1989 Alcohol Use Standard Drinks/Week Comments No 0 (1 standard drink = 0.6 oz pur e alcohol) Sex and Gender Information Value Date Recorded Sex Assigned at Not on file Gender Identity Not on file Sexual Orientation Not on file documented as of this encounter Plan of Treatment Not on file documented as of this encounter Visit Diagnoses Not on filedocumented in this encounter Care Teams Decorator Mannequin Relationship Specialty Start Date End Date Miah Bowman DO [address] [place] [address] PCP - General 03/23/10 11/12/13 Jerman Gonzalez MD PCP - General Internal Medicine 11/13/13 07/30/18 Michael Jane, CATALYST RECOVERY OPERATOR-ELECTRIC ORGAN INSPECTOR AND REPAIRER PCP - General 07/31/18 04/28/19 Krystal Rainey MD PCP - General Family Medicine 04/29/19 03/13/22 Krystal Rainey MD [address] [facility] [address] [place] [address] PCP - Attributed-Aida MINOR 08/03/19 12/01/19 Krystal Rainey MD [address] [facility] [address] [place] [address] PCP - Attributed-[facility] 01/02/20 03/20/22 Jose R Peck MD [address] [facility] [address] [place] [address] PCP - General Internal Medicine 09/15/22 Lulu Yadav, RN Baseball Club Manager 09/18/12 09/10/13 [place] [address] [facility] [address] [place] [address] Pulmonary Disease 05/19/19 [place] [address] [facility] [address] [place] [address] Endocrinology 07/30/19 [place] [address] [place] [address] Anesthesiology-Pain Management 07/30/19 Leann Morley, MANAGER OF ENTERPRISE [address] [place] [address] Behavioral Health Therapist Care Management 12/06/21 02/05/22 documented as of this encounter
== END 2024-09-22 16:15 | disposition home or self-care (01) ==
PROVIDERS: Emergency Provider Emergency Medicine; PCP Family Medicine
DX: S80.01XA Contusion of right knee, initial encounter (principal); R07.89 Other chest pain; J45.909 Unspecified asthma, uncomplicated; E11.9 Type 2 diabetes mellitus without complications; G47.30 Sleep apnea, unspecified; Z98.42 Cataract extraction status, left eye; Z98.41 Cataract extraction status, right eye; Z87.891 Personal history of nicotine dependence; M47.816 Spondylosis without myelopathy or radiculopathy, lumbar region; M16.0 Bilateral primary osteoarthritis of hip; M17.11 Unilateral primary osteoarthritis, right knee; W18.09XA Striking against other object with subsequent fall, initial encounter
CPT/HCPCS: 71046; 72128; 72131; 73502; 73564; 96372; 99284; J1885

== ENCOUNTER 2024-11-10 11:00 | Outpatient (RCR) | payer MEDICARE, SELFPAY ==
--- NOTE | 2024-08-29 09:59 | OPREHPOC ---
Outpatient Therapy Plan of Care This is a Multidisciplinary Plan of Care that may contain components documented by all disciplines (PT, OT, and ST.) PT Problem 1 PT Problem #1 Knowledge Deficit PT Goal 1 Goal / Goal Update *indep with HEP Target Visit 8 PT Problem 2 PT Problem #2 Pain PT Goal 1 Goal / Goal Update * decrease overall pain rating to 8/10 at worst Target Visit 8 PT Problem 3 PT Problem #3 Impaired Functional Mobility PT Goal 1 Goal / Goal Update * 2 minute walking test distance with wheeled walker 200' Target Visit 8 PT Goal 2 Goal / Goal Update * 5 reps sit/stand time of 24 seconds Target Visit 8 PT Problem 4 PT Problem #4 Impaired Strength PT Goal 1 Goal / Goal Update pt able to perform 45 minutes of aquatic exercises to increase trunk and LE strength Target Visit 8 PT Goal 2 Goal / Goal Update * pt perform 15 reps of supine R and L LE exercises Target Visit 8
--- NOTE | 2024-08-29 09:59 | PTOPEVAL1 ---
Assessment and note entered by Angeline Stein, PT Evaluation Information Assessment Status Evaluation ICD-10 Condition Codes (PT) Repeated falls R29.6,Difficulty Walking R26.2, Weakness R53.1 Other ICD-10 Condition Codes ( unsteady on feet R26.81 PT) Onset May 2024 Subjective Information gradual weakness and falls; in the past 6 months have had 10 falls; falls due to R knee cap moving or R/L hip giving out; have a tall & regular wheeled walker, do not use much due to trying to care for 12 year old child in wheelchair that is blind; have had PT in the past for knees, back and it did not help at all; Activity: problems cleaning home lifting due to pain; live at home with 12 year old twin children; no assistance available for her home tasks; sometimes do leg exercises, but legs hurt and sometimes do not do them; GOAL: feel better, but not have any hopes for therapy working- have not helped before but willing to try Reported Pain Level Pain Score Self Report Additional Pain Score Comments pain range in the past week: 5- 10/10 chronic pain and issues with back, both hips and knees, L shoulder and arm Assessment PT Clinical Summary Emy has the diagnosis of falls and decreased walking. She has had 10 falls in the past 6 months. History includes: L shoulder and arm pain ; back pain, bilateral hip and knee pain and R foot pain. She is doing everything at home with difficulty and caring for 12 year old twins. She uses walker PRN. With the evaluation: poor walking pattern, to dept without device; 2 minute walking test with wheeled walker 75'; 5 reps sit/stand time of 33 seconds; labored with supine/sit/stand transfers with increased pain; supine R and L LE motions increase pain and not able to tolerate performing. Skilled PT services: modalities to decrease pain PRN, aquatic therapy for improved ability to move with the buoyancy effects of the water, with progression to land exercises to increase strength and mobility skills, with education for HEP. Plan of Care Interventions Aquatic Therapy,Electrical Stimulation,Hot Pack/ Cold Pack,Manual Therapy,Neuro Re-education, Patient/Caregiver Education,Therapeutic Activities ,Therapeutic Exercise,Ultrasound PT Services Indicated Yes Treatment Frequency and 1-2x/wk for 8 visits Duration These treatments will address the objective and functional deficits as defined above. The patient will be advanced safely and appropriately in order for the patient to progress towards his/her prior level of function. Additional exercises will be introduced and as well as a comprehensive home exercise program upon discharge, if needed, ?to ensure carryover of functional gains achieved in the clinic. This treatment plan has been reviewed and agreement upon by the patient.
--- NOTE | 2024-10-06 13:28 | PCPTNOTE ---
pt did not show for today's reeval appt. Called her, she had the wrong time. Discussed therapy with her; she stated feels like it is not really helping, feel some better right after treatment, but it does not last. Has appointments next week for ortho and pain management. Will hold chart open, see what the new referrals recommend for her. She will call if she has a new order from deana soliz
--- NOTE | 2024-11-10 13:19 | OPREHPOC ---
Outpatient Therapy Plan of Care This is a Multidisciplinary Plan of Care that may contain components documented by all disciplines (PT, OT, and ST.) PT Problem 1 PT Problem #1 Knowledge Deficit PT Goal 1 Goal / Goal Update *indep with HEP Target Visit 8 Progress Met PT Problem 2 PT Problem #2 Pain PT Goal 1 Goal / Goal Update * decrease overall pain rating to 8/10 at worst Target Visit 16 Progress Not Met PT Problem 3 PT Problem #3 Impaired Functional Mobility PT Goal 1 Goal / Goal Update * 2 minute walking test distance with wheeled walker 200' Target Visit 16 Progress Not Met PT Goal 2 Goal / Goal Update * 5 reps sit/stand time of 24 seconds Target Visit 16 Progress Not Met PT Problem 4 PT Problem #4 Impaired Strength PT Goal 1 Goal / Goal Update pt able to perform 45 minutes of aquatic exercises to increase trunk and LE strength Target Visit 16 Progress Partially Met PT Goal 2 Goal / Goal Update * pt perform 15 reps of supine R and L LE exercises Target Visit 16 Progress Not Met
--- NOTE | 2024-11-10 13:19 | PTOPPROG ---
Assessment and note entered by Facundo Tabor, PT Evaluation Information Assessment Status Progress ICD-10 Condition Codes (PT) Repeated falls R29.6,Difficulty Walking R26.2, Weakness R53.1 Other ICD-10 Condition Codes ( unsteady on feet R26.81 PT) Onset May 2024 Subjective Information Reports that with therapy she has not seen any carry over. She noted that the pool helped when she was doing it and the electrodes on the knee did as well but there was no carry over after she left therapy. Reports that she has been told that she needs to have a knee replacement but she does not want to. Reports that she is still having radicular pain from the back all the way to her ankle. She has been offered injections in the back but has not committed to those as they have not helped her before. She reports that she has had about 4-5 falls since she was last in therapy in September. She continues to use a walker all the time for the past year. She has been having a lot of trouble sleeping and sleeps on her back. Cannot lay on side due to shoulder pain. Assessment PT Clinical Summary Patient continues to show significant weakness in venancio LE, decreased functional mobility, and decreased functional endurance. Overall she has seen progress during therapy but carry over has been limited. She continues to be significantly limited by progressive arthritis in left knee. Will continue to benefit from skilled therapy for combination aquatics and lumbar decompression exercise. Plan of Care Interventions Aquatic Therapy,Electrical Stimulation,Hot Pack/ Cold Pack,Manual Therapy,Neuro Re-education, Patient/Caregiver Education,Therapeutic Activities ,Therapeutic Exercise,Ultrasound PT Services Indicated Yes Treatment Frequency and 1-2x/week for 8 visits Duration These treatments will address the objective and functional deficits as defined above. The patient will be advanced safely and appropriately in order for the patient to progress towards his/her prior level of function. Additional exercises will be introduced and as well as a comprehensive home exercise program upon discharge, if needed, ?to ensure carryover of functional gains achieved in the clinic. This treatment plan has been reviewed and agreement upon by the patient.
--- NOTE | 2024-11-25 07:56 | PCPTNOTE ---
This treatment is being continued on visit number [id number] Please see documentation on both accounts to view progress. Completed interventions, outcomes, and problems have been marked as Inactive to facilitate the copying of the Care plan routine for recurring accounts.
== END 2024-11-25 07:18 | disposition home or self-care (01) ==
LOC: ANHPT 11:00
PROVIDERS: PCP Family Medicine; Visit Provider Student in an Organized Health Care Education/Training Program
DX: R26.81 Unsteadiness on feet (principal)
CPT/HCPCS: 97014; 97110; 97113; 97140; 97162; 97530; G0283

== ENCOUNTER 2024-12-05 12:47 | Outpatient (CLI) | payer MEDICARE, SELFPAY ==
--- NOTE | ~2024-12-05 | MR_ITS ---
EXAMINATION: MR hip RT wo con DATE: 12/05/2024 13:50 INDICATION: Right hip pain TECHNIQUE: Magnetic resonance imaging (MRI) of the right hip was performed without intravenous contr ast. Sequences included full-field axial PD-weighted FS FSE and T1-weighted FSE, coronal of the pelvi s with PD-weighted FS FSE, T2-weighted FSE and T1-weighted FSE, small field of view of the right hip with axial PD-weighted FS FSE, sagittal PD-weighted FS FSE, coronal PD-weighted FS FSE and coronal T2 weighted FSE. Additional radial T1-weighted FGR oriented orthogonal to the acetabular rim were obt ained for evaluation of the labrum. COMPARISON: Right hip radiographs dated 09/22/2024 FINDINGS: Bones/labrum/cartilage: Alignment is normal. No fracture, avascular necrosis or pathologic marrow replacing process. Mild ri ght hip osteoarthritis with mild partial-thickness cartilage loss resulting in mild nonuniform joint space narrowing without degenerative subchondral changes. Right acetabular labrum is normal. Similar appearance to the left hip is not diagnostically evaluated on the larger [id number] images. Severe disc height loss with associated fibrofatty degenerative endplate changes at L5-S1. Moderate disc he ight loss at L3-L4. Hypertrophic changes at the bilateral greater and wrist, left greater than right along with small heterotopic ossicle along the anterosuperior margin of the right greater trochanter. Fluid: Physiologic amount fluid in the bilateral hip joint spaces. Small amount of fluid at the bilateral gl uteus minimus bursae, left greater than right consistent with bursitis. There is also increased fluid signal consistent with mild left gluteus medius medius bursitis. Soft tissues: There is partial thickness tear of the left gluteus medius tendon with 3 similar proximal retraction of the myotendinous junction from the greater trochanter footplate with there is prominent hypertroph ic osteophytes. There is associated asymmetric mild fatty atrophy of the left gluteus medius muscle b flores relative to the right. There is also mild fatty atrophy of the left gluteus medius possibility o f the right with tendinopathy and additional hypertrophic osteophytes but without definitive tear of the distal left gluteus minimus tendon. The bilateral iliopsoas, rectus femoris tendons and proximal hamstring tendons are normal. 3.5 cm TI T2 hypointense uterine fibroid. There are a couple nonspecifi c small T2 hyperintense likely cystic lesion without evident associated solid nodular soft tissue com ponent along the posterior left posterior margin of the rectum which measure 1.6 x 0.8 cm and 1.9 x 1 .1 cm respectively. No pathologically enlarged pelvic/inguinal lymphadenopathy. IMPRESSION: 1. Mild right hip osteoarthritis without joint effusion with normal labrum. 2. Mild bilateral gluteus minimus bursitis and left gluteus medius medius bursitis with chronic parti al tear of the distal left radius medius tendon. 3. A couple incidental nonspecific small cystic lesions in the posterior rectal space for which diffe rential would include tailgut cysts, but rectal epidermoid, dermoid or neural enteric cyst and cystic lymphangioma. No surrounding inflammatory stranding to suggest abscess and no evident solid soft tis tg component to suggest a necrotic malignant lesion. 4. Moderate to severe lower lumbar spondylosis. Reviewed, dictated and finalized at location A. IMPRESSION: 1. Mild right hip osteoarthritis without joint effusion with normal labrum. 2. Mild bilateral gluteus minimus bursitis and left gluteus medius medius bursi tis with chronic partial tear of the distal left radius medius tendon. 3. A couple incidental nonspecific small cystic lesions in the posterior rectal space for which differential would include tailgut cysts, but rectal epidermoi d, dermoid or neural enteric cyst and cystic lymphangioma. No surrounding infla mmatory stranding to suggest abscess and no evident solid soft tissue component to suggest a necrotic malignant lesion. 4. Moderate to severe lower lumbar spondylosis.
== END 2024-12-05 12:48 | disposition home or self-care (01) ==
LOC: MICIMG 12:48
PROVIDERS: PCP Family Medicine; Visit Provider Orthopaedic Surgery
DX: M16.11 Unilateral primary osteoarthritis, right hip (principal)
CPT/HCPCS: 73721

== ENCOUNTER 2024-12-29 10:00 | Outpatient (RCR) | payer MEDICARE, SELFPAY ==
--- NOTE | 2024-11-25 07:57 | PCPTNOTE ---
This treatment is being continued from visit number [id number] Please see documentation on both accounts to view progress. Completed interventions, outcomes, and problems have been marked as Inactive to facilitate the copying of the Care plan routine for recurring accounts.
--- NOTE | 2024-12-12 11:19 | PCPTNOTE ---
Pt canceled due to sick child.
--- NOTE | 2024-12-18 09:46 | PCPTNOTE ---
Pt NS today due to wrong appt time thinking it was later in the day today. Pt was reminded of the next 3 appt day and times.
--- NOTE | 2024-12-29 10:53 | OPREHPOC ---
Outpatient Therapy Plan of Care This is a Multidisciplinary Plan of Care that may contain components documented by all disciplines (PT, OT, and ST.) PT Problem 1 PT Problem #1 Knowledge Deficit PT Goal 1 Goal / Goal Update *indep with HEP Target Visit 8 Progress Met PT Problem 2 PT Problem #2 Pain PT Goal 1 Goal / Goal Update * decrease overall pain rating to 8/10 at worst Target Visit 16 Progress Not Met PT Problem 3 PT Problem #3 Impaired Functional Mobility PT Goal 1 Goal / Goal Update * 2 minute walking test distance with wheeled walker 200' Target Visit 16 Progress Not Met PT Goal 2 Goal / Goal Update * 5 reps sit/stand time of 24 seconds Target Visit 16 Progress Met PT Problem 4 PT Problem #4 Impaired Strength PT Goal 1 Goal / Goal Update pt able to perform 45 minutes of aquatic exercises to increase trunk and LE strength Target Visit 16 Progress Met PT Goal 2 Goal / Goal Update * pt perform 15 reps of supine R and L LE exercises Target Visit 16 Progress Partially Met
--- NOTE | 2024-12-29 10:53 | PTOPDC ---
Assessment and note entered by Facundo Tabor, PT Evaluation Information Assessment Status Discharge ICD-10 Condition Codes (PT) Repeated falls R29.6,Difficulty Walking R26.2, Weakness R53.1 Other ICD-10 Condition Codes ( unsteady on feet R26.81 PT) Onset May 2024 Subjective Information Reports that she does feel that at this point her legs are a little stronger, but she is still having the same pain. Reports that she is still significantly struggling with pain, even with aquatic therapy. Shortness of breath seems to really be limiting her walking right now. Reports that she does not do well this time of year with heat and allergies. Reported Pain Level Pain Score 9: Self Report Assessment PT Clinical Summary Patient has seen some functional improvement but no significant functional carry over at this time. Continues to be limited by pain and therapy has not provided sufficient pain relief at this time. We discusses continuation of aquatics at her local gym and patient intends to follow through. Will be discharged at this time to [facility]. Plan of Care PT Services Indicated Yes
== END 2024-12-29 13:53 | disposition home or self-care (01) ==
LOC: ANHPT 10:00
PROVIDERS: PCP Family Medicine; Visit Provider Student in an Organized Health Care Education/Training Program
DX: R26.81 Unsteadiness on feet (principal)
CPT/HCPCS: 97110; 97113; 97530

== ENCOUNTER 2025-05-08 01:38 | Day surgery (SDC) | payer MEDICARE, SELFPAY ==
--- OUTSIDE RECORDS SUMMARY | 2015-02-10 05:45 | XMS_ITS | Continuity of Care Document ---
Author Organization [facility] Address [address] [place] [address] Phone Care Team Providers Care Customer Service Sales Associate Name Role Phone Alvaro Park MD, MD Unavailable Unavaila ble Allergies, Adverse Reactions, Alerts Substance Reaction Status Criticality tetracycline Vomiting(severe) Active No Informat ion Medications Medication Instructions Dosage Effective Dates (start - stop) Status Comments METFORMIN HCL (unknown strength) take 1 tablet by oral route 2 times every day with morning and evening meals Not Available - No Longer Active AMLODIPINE BESYLATE (unknown strength) take 1 tablet by oral route every day Not Available - No Longer Active LOSARTAN POTASSIUM (unknown strength) take 1 tablet by oral route every day Not Available - No Longer Active Aspir-81 81 mg tablet,delayed release take 1 tablet by oral route every day - No Longer Active Procedures Procedure Date X-ray exam foot, minimum 3 views 2014 Office/outpatient visit,est, mod 2014 Supplemental Report Office/outpatient visit,est, mod 2014 Supplemental Report X-ray exam foot, minimum 3 views 2014 Office consultation, moderate 5 Advance Directives Directive Yes / No Effective Date File Name No Information Encounters Encounter Description Practice Location Reason(s) For Visit Diagnoses Date Provider Providers Copied on Encounter Office/outpat ient visit,est, mod [facility], [address], [place], [place], [id number], [place] tel:[phone] [facility] FX FOOT BONE NEC-CLOSED Vivian John. [address] [facility], [address], [id number], [place]. tel:[phone] Office/outpat ient visit,est, mod [facility], [address] [place] [address], [id number], tel:[phone] [facility] JOINT PAIN-ANKLEF X FOOT BONE NEC-CLOSED Vivian John. [address] [place] [address], [id number], [place]. tel:[phone] Office consultation, moderate [facility], [address] [place] [address], [id number], tel:[phone] [facility] JOINT PAIN-ANKLEF X FOOT BONE NEC-CLOSED Vivian John. [address] [place] [address], [id number], . tel:[phone] Family History Family Member Type Diagnosis Age At Onset No Information Immunizations Vaccine Date Status Comments Flu (split) (3 yrs or older) administered Source: Other Provider Payers Payer name Insurance type Covered constitution party ID Sona portillo(s) [facility] [id number] Social History Type Description Quantity Date Captured Comments Alcohol Use Details Unknown Caffeine Use Details Unknown Tobacco Use Status Ex-cigarette smoker 015 Smoking Status Former smoker Non-Smoking Tobacco Use Details : No Details Available : No Details Available Sex Female Vital Signs Date / Time: Height Weight BMI Pulse Rate Blood Pressure Temperature Respiratory Rate Body Surface Area Head Circumference Head Circ. Percentile Wt./Pineda. Percentile BMI percentile Pulse Ox Inhaled Ox 11:56 AM 65.00 in 102.058 kg (225.00 lbs) 37.4 4 kg/m eter (2) Chief Complaint And Reason For Visit No Information Reason For Referral Reason For Referral No Information Plan Of Treatment Date Type Action Status Referral Ordered: X-ray exam foot, minimum 3 views RT ordered Patient Education Body Mass Index: After Your Visit completed Patient Education Body Mass Index: After Your Visit completed History Of Present Illness Encounter Date Complaint History Of Prese nt Illness No Information Functional Status Date Functional Assessmen t No Information Instructions Date Instruction Additional Infor mation No Information Assessments Type Assessment Date assessment FX FOOT BONE NEC-CLOSED 015 Patient Care Teams Name Effective Dates (start - stop) Status Members No Information
[2025-04-27 13:40] VITALS: BMI 36.6
--- OUTSIDE RECORDS SUMMARY | 2025-05-08 01:41 | XMS_ITS | Encounter Summary ---
Author Organization [facility] Address [address] [facility] [place] [address] Care Team Providers Care Fpga Engineer Name Role Phone Miah Bowman DO Primary Care Provider [phone] Lulu Yadav RN Unavailable [phone] Jerman Gonzalez MD Primary Care Provider Michael Jane MANUGRAPHER-POTATO PANCAKE FRIER Primary Care Provider [phone] Krystal Rainey MD Primary Care Provider Carter Del Cid MD Unavailable Krystal Rainey MD Unavailable Esequiel Palmer MD Unavailable Pawan Severino MD Unavailable Krystal Rainey MD Unavailable [phone] Leann MorleyW Unavailable [phone] Jose R Peck MD Primary Care Provider Encounter Details Date Type Department Care Team (Late st Contact Info) Description 12/04/2011 [facility] Miah Bowman DO [address] [place] [address] Social History Tobacco Use Types Packs/Day Years Used Date Smoking Tobacco: Former Smokeless Tobacco: Never Comments:Quit in 1989 Alcohol Use Standard Drinks/Week Comments No 0 (1 standard drink = 0.6 oz pur e alcohol) Comments No Sex and Gender Information Value Date Recorded Sex Assigned at Not on file Legal Sex Female 11:36 AM COMPRESSED GAS TESTER Gender Identity Not on file Sexual Orientation Not on file documented as of this encounter Plan of Treatment Upcoming Encounters Date Type Department Care Team (Late st Contact Info) Description 05/12/2025 10:45 AM CDT Office Visit [facility] - Endocrinology [id number] [place] [address] [place] [address] [address] documented as of this encounter Visit Diagnoses Not on filedocumented in this encounter Care Teams Fpga Engineer Relationship Specialty Start Date End Date Miah Bowman DO [address] [place] [address] PCP - General 03/23/10 11/12/13 Jerman Gonzalez MD PCP - General Internal Medicine 11/13/13 07/30/18 Michael Jane, MANUGRAPHER-POTATO PANCAKE FRIER PCP - General 07/31/18 04/28/19 Krystal Rainey MD PCP - General Family Medicine 04/29/19 03/13/22 Krystal Rainey MD [address] [place] [address] PCP - Attributed-[facility] [place] 04/03/19 12/01/19 Krystal Rainey MD [address] [place] [address] PCP - Attributed-[facility] [place] 01/02/20 03/20/22 Jose R Peck MD [address] [facility] [address] [place] [address] PCP - General Internal Medicine 09/15/22 Lulu Yadav, RN [address] Messenger 09/18/12 09/10/13 [place] [address] [facility] [address] [place] [address] Pulmonary Disease 05/19/19 [place] [address] [facility] [address] [place] [address] Endocrinology 07/30/19 [place] [address] [facility] [facility] [address] [place] [address] Anesthesiology-Pain Management 07/30/19 Leann Morley, LABORATORY OPERATIONS COORDINATOR [address] [place] [address] Behavioral Health Therapist Care Management 12/06/21 02/05/22 documented as of this encounter
--- OUTSIDE RECORDS SUMMARY | 2025-05-08 01:41 | XMS_ITS | Clinical Summary ---
Author Organization [facility] [address] Address [address] [place] [address] Care Team Providers Care Furniture Removalist Name Role Phone Anand Mendenhall DO Primary Care Provider [phone] Allergies Active Allergy Reactions Criticality Noted Date Comments Gujcjvj-Pfw-Gyd Reductase Inhibitors Muscle Pain Low 09/17/2022 Tetracycline [...] complication, with long-term current use of insulin ([facility]) True Metrix Use 4-5 times per day [...] be different from the original. Dr Lanier Truck Dispatcher Annual Medicare Exam 06/26/2022, 03/26/2023 Problem Noted [...] Severe obesity (BMI 35.0-39.9) with comorbidity 06/26/2022 Immunizations Immunization Administration Dates Next Due (PREVNAR 20)(6 WKS UP) PNEUM OCOCCAL CONJUGATE VACCINE 20-VALENT (PCV20), POLYSACCHARIDE KIN445 CONJUGATE, ADJUVANT 0.5 ML (PF) IM 09/25/2022 [...] 93 03/26/2023 10:14 AM CDT Temperature 36.5 C (97.7 F) 03/26/2023 10:14 AM CDT Respiratory Rate 18 07/04/2022 12:40 PM CDT Oxygen Saturation 95% 03/26/2023 10:14 AM CDT Inhaled Oxygen Concentration - - Weight 101.6 kg (224 lb) 03/26/2023 10:14 AM CDT Height 162.6 cm (5' 4) 03/26/2023 10:14 AM CDT Body Mass Index [...] 1-dose series) 2014 BREAST CANCER SCREENING 12/29/2022 12/29/2021, 12/29 DIABETES ANNUAL FOOT EXAM 06/26/2023 06/26/2022 DIABETES MICROALBUMIN ANNUAL SCREEN 07/05/2023 07/05/2022 DIABETES HBA1C Q 6 MONTHS 09/26/2023 03/26/2023, 10/2021 LDL CHOLESTEROL ANNUAL 03/26/2024 03/26/2023, 2021 COVID-19 Vaccine (2023-2 5 season) 2024 12/20/2021, 12/15/2020, 11/22/2020 [place] Preventative Visit/Annual Wellness Visit 09/03/2024 03/26/2023, 06/26/2022 INFLUENZA VACCINE (#1) 2025 06/14/2021 COLORECTAL SCREENING 07/04/2025 07/04/2022, 07/04/2022, 07/04/2022, Additional history exists Colorectal Cancer Screening 07/04/2025 OSTEOPOROSIS SCREENING 09/01/2025 09/01/2020 PNEUMOCOCCAL VACCINE 50+ YEARS Completed 09/25/2022 Procedures Procedure Name Priority Date/Time Associated Diagnosis Comments LIPID PANEL Routine 03/26/2023 11:09 AM CDT Pure hypercholesterolemia HEMOGLOBIN A1C Routine 03/26/2023 11:09 AM CDT Type 2 diabetes mellitus without complication, with long-term current use of insulin ([facility]/HCC) MICROALBUMIN/CREAT ININE RATIO, RANDOM UR Routine 07/05/2022 12:41 PM CDT Type 2 diabetes mellitus without complication, with long-term current use of insulin (CMS/HCC) COLONOSCOPY REPORT 07/04/2022 12 :15 PM CDT MAMMO 3D MARCIAL SCREEN BILAT W OR WO CAD Routine 12/29/2021 from Last 3 Months or Most Recently Relevant to Health Maintenance Results * (ABNORMAL) HEMOGLOBIN A1C (03/26/2023 11:09 AM CDT) HEMOGLOBIN A1C 6.8(H) <5.7 % of total Hgb [facility] Comment: For someone without known diabetes, [...] A1c for diagnosis of diabetes for children. ESTIMATED AVERAGE GLUCOSE (MG/DL) 148 mg/dL Mary Moraes ESTIMATED AVERAGE GLUCOSE (MMOL/L) 8.2 mmol/L Mary Moraes Comment: FASTING:YES FASTING: YES Test Performed at: [facility] [address] [place] [id number] Lloyd Strong Blood 03/26/2023 11:0 9 AM CDT 03/26/2023 11:09 AM CDT us Jose R Peck MD CHEMISTRY ORDERABLES Final Resul t [facility] [phone] [facility] [address] [place] [id number] * (ABNORMAL) LIPID PANEL (03/26/2023 11:09 AM CDT) Pathologist [facility] CHOLESTEROL 155 <200 mg/dL Mary Moraes HDL 43(L) > OR = 50 mg/dL Mary [facility] TRIGLYCERIDE 181(H) <150 mg/dL Mary Moraes LDL CALCULATED 84 mg/dL (calc) Mary [facility] Comment: Reference range: <100 Desirable range <100 mg/dL for primary prevention; <70 mg/dL for patients with CHD or diabetic patients with > or = 2 CHD risk factors. LDL-C is now calculated using the Cameron-Sheppard calculation, which is a validated novel method providing better accuracy than the Friedewald equation in the estimation of LDL-C. Cameron SS et al. LYLE. 2013;310(19): 7274-2575 (http://education.Guidance Software/faq/VSK349) CHOL/HDL RATIO 3.6 <5.0 (calc) [facility] Dimitry TOTAL NON-HDL CHOL(LDL+VLDL) 112 <130 mg/dL (calc) [facility] Comment: For patients with diabetes plus 1 major ASCVD risk factor, treating to a non-HDL-C goal of <100 mg/dL (LDL-C of <70 mg/dL) is considered a therapeutic option. FASTING:YES FASTING: YES Test Performed at: [facility] [place] [address] [id number] Lloyd Strong Blood 03/26/2023 11:0 9 AM CDT 03/26/2023 11:09 AM CDT Jose R Peck MD CHEMISTRY ORDERABLES Final Resul t [facility] [phone] [place] [address] [address] [address] * MICROALBUMIN/CREATININE RATIO, RANDOM UR (07/05/2022 12:41 PM CDT) Creatinine, Urine 35 20 - 275 mg/dL [facility] MICROALBUMIN, URINE 0.6 See Note: mg/dL [facility] Comment: Reference Range: Reference Range Not established MICROALBUMIN/CREAT RATIO, UR 17 <30 mcg/mg creat [facility] Comment: The ADA defines abnormalities in albumin excretion as follows: Albuminuria Category Result (mcg/mg creatinine) Normal to Mildly increased <30 Moderately increased 30-299 Severely increased > OR = 300 The ADA recommends that at least two of three specimens collected within a 3-6 month period be abnormal before considering a patient to be within a diagnostic category. FASTING:NO FASTING: NO Test Performed at: [facility] [address] [place] [address] Nithin López D.O., MPH Urine URINE SPECIMEN OBTAINED BY CLEAN CATCH PROCEDURE / Unknown 07/05/2022 12:41 PM CDT 07/05/2022 12:41 PM CDT us Jose R Peck MD URINE ORDERABLES Final Result [facility] [phone] [facility] [address] [place] [address] * COLONOSCOPY REPORT (07/04/2022 12:15 PM CDT) Narrative Procedure Note Yadira Corea DO - 07/04/2022 12:[address] [facility] Patient Name: Emy Fischer Procedure Date: [...] week. You may call the office at [phone]. Yadira Corea MD 07/04/2022 12:14:00 PM This report has been signed electronically. Number of Addenda: [address]; [place] [address] us Yadira Corea DO GI PROCEDURE ORDERABLES Fin al Result * (ABNORMAL) MAMMO SCRN BILAT 3D MARCIAL W OR WO CAD (12/29/2021) Anatomical Region Laterality Modality Breast Bilateral Mammography us Abstract Provider MAMMO ORDERABLES Edited Result - Final from Last 3 Months or Most Recently Relevant to Health Maintenance Insurance O MCR Advance Directives For more information, please contact: [phone] * Full Code (Latest Code Status on File) Date Activated Date Inactivated Comments 07/04/2022 10:26 AM 07/04/2022 4:37 PM Care Teams Furniture Removalist Relationship Specialty Start Date End Date Anand Mendenhall DO [id number] [place] [address] PCP - General Family Practice 11/22/23
--- OUTSIDE RECORDS SUMMARY | 2025-05-08 01:41 | XMS_ITS | Clinical Summary ---
Author Organization [facility] [address] Address [address] [facility] [place] [address] Care Team Providers Care Button Breaker Operator Name Role Phone Carter Del Cid MD Unavailable Esequiel Palmer MD Unavailable Pawan Severino MD Unavailable Jose R Peck MD Primary Care Provider [phone] Source Comments [facility],non-owned Affiliates and Associated Physician Practices is amultiple site organization consisting of ambulatory clinics and hospital sitesin [place], [place], [place] and [place]. This disclosure is being madepursuant to the Care Everywhere program and may not contain all information available regarding this patient. Last updated 18.[facility] [address] Allergies Active Allergy Reactions Criticality Noted Date Comments Hmg-Coa-R Inhibitors Myalgias 06/14/2021 Tetracycline 12/15/2008 GI Upset Medications * Be aware that medications may not be up to date on this document. Alwaysverify current medications with the patient. aspirin 81 MG tablet Take 1 (one) tablet by mouth once daily Active multivitamin daily (THERAGRAN) tablet Take 1 (one) tablet by mouth daily with food Active cycloSPORINE (RESTASIS) 0.05 % ophthalmic suspension Instill 1 drop into both eyes 2 times daily 1 Each 2 01/29/20 20 Active diclofenac sodium EC (VOLTAREN) 50 MG tablet 06/01/20 21 Active traMADol (ULTRAM) 50 MG tablet Take 1 (one) tablet by mouth every 6 hours as needed pain 05/28/20 21 Active budesonide-formot jose (SYMBICORT) 160-4.5 MCG/ACT inhaler Inhale 2 (two) puffs by mouth 2 times daily Brand name only no generic 3 g 4 06/02/20 21 Active montelukast (SINGULAIR) 10 MG tablet Take 1 (one) tablet by mouth once daily 90 tablet 4 06/02/20 21 Active VENTOLIN HFA 108 (90 Base) MCG/ACT inhaler Inhale 2 (two) puffs by mouth every 6 hours as needed 1 g 5 06/02/20 21 Active albuterol (PROVENTIL;VENTOL IN) (2.5 MG/3ML) 0.083% nebulizer solution Inhale 2.5 (two and one-half) mg by mouth 3 times daily 230 mL 3 06/03/20 21 Active amLODIPine (NORVASC) 10 MG tablet TAKE 1 TABLET BY MOUTH EVERY DAY 90 tablet 1 12/03/19 22 Active hydroCHLOROthiazi de (HYDRODIURIL) 12.5 MG TAKE 1 TABLET BY MOUTH EVERY DAY 90 tablet 1 12/03/19 22 Active tiZANidine (ZANAFLEX) 4 MG tablet Take 1 (one) tablet by mouth nightly as needed for Muscle Spasms 90 tablet 12/21/19 22 Active losartan (COZAAR) 100 MG tablet TAKE 1 TABLET BY MOUTH EVERY DAY 90 tablet 1 03/03/20 22 Active ezetimibe (Zetia) 10 MG tabletIndications :Hyperlipidemia Take 1 (one) tablet by mouth once daily Reasons: High Amount of Fats in the Blood 90 tablet 1 02/15/20 23 Active TRUEplus Lancets 33G MISCIndications:T ype 2 diabetes mellitus with hyperglycemia, with long-term current use of insulin (HCC) TEST TWICE DAILY 200 Each 5 03/14/20 24 Active rosuvastatin (Crestor) 5 MG tablet TAKE 1 TABLET BY MOUTH ON SUNDAY, SUNDAY, AND Fridays03/05/20 24 Active BD Pen Needle Zeenat U/F 32G X 4 MM MISCIndications:T ype 2 diabetes mellitus with hyperglycemia, with long-term current use of insulin (HCC) Use 1 Each once daily 200 Each 5 04/15/20 24 Active blood glucose (True Metrix Blood Glucose Test) test stripIndications: Type 2 diabetes mellitus without complication, with long-term current use of insulin ([facility]) Use 1 (one) strip twice daily, before breakfast & at bedtime. 200 strip 1 05/20/20 24 Active Blood Glucose Monitoring Suppl (OneTouch Verio) w/Device KITIndications:Ty pe 2 diabetes mellitus without complication, with long-term current use of insulin ([facility]) Use 1 device twice daily, before breakfast & at bedtime. 1 kit 1 05/31/20 24 Active Lancets (ONETOUCH DELICA PLUS 33G EXTRA FINE LANCET)Indication s:Type 2 diabetes mellitus with hyperglycemia, with long-term current use of insulin ([facility]) Use 1 Each twice daily, before breakfast & at bedtime. 200 Each 2 06/17/20 24 Active OneTouch Verio test stripIndications: Type 2 diabetes mellitus without complication, with long-term current use of insulin ([facility]) USE 1 STRIP TWICE DAILY BEFORE BREAKFAST AND AT BEDTIME. 200 strip 1 09/19/19 25 Active Basaglar KwikPen (Basaglar) penIndications:Un controlled type 2 diabetes mellitus with hyperglycemia (HCC) Inject 40 (forty) Units to 60 (sixty) Units subcutaneously once daily 10/09/19 25 Active glipiZIDE (Glucotrol) 10 MG tabletIndications :Type 2 diabetes mellitus with hyperglycemia, with long-term current use of insulin ([facility]) TAKE 1 TABLET BY MOUTH DAILY BEFORE DINNER 90 tablet 1 02/05/20 25 Active dulaglutide (Trulicity) 3 MG/0.5ML injectionIndicati ons:Type 2 diabetes mellitus with hyperglycemia, with long-term current use of insulin ([facility]) Inject 3 (three) mg subcutaneously every 7 days (once a week) 02/10/20 25 Active dapagliflozin-met FORMIN ER 24hr (Xigduo XR) 5-1000 MG tabletIndications :Type 2 diabetes mellitus with hyperglycemia, with long-term current use of insulin ([facility]) Take 1 (one) tablet by mouth 2 times daily Do not crush or chew. 180 tablet 1 03/02/20 25 Active Active Problems Problem Noted Date Diagnosed Date [...] S/P colonoscopic polypectomy 08/03/2011 04/29/2019 Overview (08/03/2011): Dr. Bloom Screening for breast cancer 08/03/2011 [...] Encounters Date Type Department Care Team Description 04/30/2025 Telephone [facility] - Endocrinology [address] [facility], [address] [address] Esequiel Palmer MD Patient Assistance Program 04/27/2025 Telephone [facility] - Endocrinology [address] [place] [address], [address] [phone] Esequiel Palmer MD Screening Colonoscopy 03/02/2025 Orders Only [facility] - Endocrinology [address] [place] [address], [address] [address] Rita Mace, METEOROLOGY FACULTY MEMBER-SUPERVISOR FRAME SAMPLE AND PATTERN Type 2 diabetes mellitus with hyperglycemia, with long-term current use of insulin (HCC) 02/25/2025 Telephone [facility] Endocrinology [address] [place] [address], [address] [address] Esequiel Palmer MD Insurance Issue/question 02/10/2025 Telephone [facility] - Endocrinology [address] [place] [address], [address] [address] Esequiel Palmer MD Patient Assistance Program 02/09/2025 10:45 AM CDT Office Visit [facility] Endocrinology [address] [place] [address], [address] [address] Esequiel Palmer MD Type 2 diabetes mellitus with hyperglycemia, with long-term current use of insulin (HCC) (Primary Dx); Multiple thyroid nodules from Last 3 Months Immunizations Immunization Administration Dates Next Due [employer] primary monoval ent 12+ yr 0.3mL Purple [...] Date Recorded PHQ2 TOTAL SCORE 6 12/20/2021 Comments No Sex and Gender Information Value Date Recorded Sex Assigned at Not on file Legal Sex Female 11:36 AM OIL DIPPER Gender Identity Not on file Sexual Orientation Not on file Last Filed Vital Signs Vital Sign Reading Time Taken Comments Blood Pressure 150/78 02/09/2025 10:53 AM CDT Pulse 92 02/09/2025 10:53 AM CDT Temperature 36.4 C (97.5 F) 09/15/2022 10:25 AM OIL DIPPER Respiratory Rate 14 12/20/2021 10:22 AM CDT Oxygen Saturation 94% 02/09/2025 10:53 AM CDT Inhaled Oxygen Concentration 21% 06/06/2019 1 1:00 AM CDT Weight 102.1 kg (225 lb) 02/09/2025 10:53 AM CDT Height 165.1 cm (5' 5) 02/09/2025 10:53 AM CDT Body Mass Index 37.44 02/09/2025 10:53 AM CDT Plan of Treatment Upcoming Encounters Date Type Department Care Team (Late st Contact Info) Description 05/12/2025 10:45 AM CDT Office Visit [facility] - Endocrinology [address] [facility], [address] [place] [address] [place] [address] [facility] [address] [place] [address] Health Maintenance Due Date Last Done Comments SOFIYA (AGES 45-75) - COLON CA SCREENING 1955 [...] SCREENING 10/26/2022 10/26/2020, 12/05/2010 MAMMOGRAM 12/30/2023 12/29/2021, 12/03, 09/01/2020, Additional history exists DEPRESSION SCREENING 09/03/2024 03/14/2022 MEDICARE AWV CALENDAR YEAR 2024 12/20/2021, 11/10/2020 DTAP/TDAP/TD VACCINES (3 - Td or Tdap) 12/10/2024 12/10/2014, 12/05/2012 COVID-19 VACCINE (4 - season) 2025 12/20/2021, 12/15/2020, 11/22/2020 INFLUENZA VACCINE (#1) 2025 , 07/30/2019, 06/03/2014, Additional history exists DIABETES-HGB A1C 08/11/2025 02/09/2025, 02/2025, 03/21/2024, Additional history exists DIABETES - URINE PROTEIN SCREENING 11/12/2025 11/12/2024, 12/21/2023, 03/14/2022, Additional history exists DIABETES-SERUM CREATININE 11/12/20252024, 12/21/2023, 03/14/2022, Additional history exists DIABETES-FOOT EXAM WITH MONOFILAMENT 02/09/2026 02/09/2025, 12/05/2012, 04/08/2012 HEPATITIS C SCREENING Completed 12/06/2012, 013 HEPATITIS B VACCINE Aged Out No longe r eligible based on patient's age to complete this topic HIB VACCINE Aged Out No longer eligi ble based on patient's age to complete this topic HPV VACCINE Aged Out No longer eligi ble based on patient's age to complete this topic MENINGOCOCCAL (Group B) VACCINE SHARED DECISION-MAKING Aged Out No longer eligible based on patient's age to complete this topic MENINGOCOCCAL GROUPS A/C/Y/W VACCINE Aged Out No longer eligible based on patient's age to complete this topic Goals Goal Patient Goal Type Associated Problems Recent Progress Patient-Stated? Author Blood Pressure < 140/90 Blood Pressure 150/78(2024 10:53 AM CDT) No Meg Ann HEMOGLOBIN A1C [...] and cholesterol. Some important tips are below: Eat meals at the same time each day. Don t skip meals. This will keep your blood glucose levels more level throughout the day and help control hunger. Eat about the same amount of foods every day, especially carbohydrates. Use less fat, sugar, salt and alcohol. Eat a wide variety of foods. This will help fuel your body and make sure you get the right amount of nutrients. All diabetics should have their own meal plan based on their personal goals, foods they like to eat and their lifestyle. If you need help with developing your meal plan, ask your provider for a referral to see a dietitian. Maintain a healthy weight through diet and exercise Blood Sugar - An important part of your diabetes care is knowing your blood sugar. Your blood sugar can and should be monitored regularly, at the discretion of your doctor, in order to make the most of your diabetic care. A printable blood sugar log can be found by following the links below: o Go to www.diabetes.org and click on L iving with Diabetes. o Under the Heading Treatment [facility] Care, click B lood Glucose Testing. o Click C hecking Your Blood Glucose, and this will give you both an online tool and a printable blood glucose log. o The printable blood glucose log can also be accessed here: printable blood glucose log The following resources can help you and the people close to you learn more about diabetes and how to manage your diabetes: [place] [employer]: www.diabetes.org 7-893-REYMQEUE ( ) [place] Diabetes Association-Support group line: www.professional.diabetes.org [place] Heart Association: www.heart.org or 1-245-AAO-[place]-1 ( ) [employer] MyPlate: www.DeluxeBoxmyplate.gov Procedures Procedure Name Priority Date/Time Associated Diagnosis Comments GLUCOSE - POINT OF CARE (AMB) STL Routine 02/09/2025 Type 2 diabetes mellitus with hyperglycemia, with long-term current use of insulin (HCC) HEMOGLOBIN A1C - POINT OF CARE (AMB) Routine 02/09/2025 Type 2 diabetes mellitus with hyperglycemia, with long-term current use of insulin (HCC) MICROALB/CREAT RATIO URINE RANDOM PANEL Routine 11/12/2024 12:37 PM CDT BASIC METABOLIC PANEL (CALCIUM TOTAL) Routine 11/12/2024 12:37 PM CDT MAMMO BILAT SCREENING W MARCIAL Routine 12/29/2021 10:46 AM CDT Screening mammogram for breast cancer HM DIABETES EYE EXAM Routine 10/26/2020 DEXA BONE DENSITY AXIAL SKELETON Routine 09/01/2020 2:45 PM OIL DIPPER Postmenopausal HEPATITIS C ANTIBODY Routine 12/06/2012 1:31 PM CDT Need for hepatitis C screening test ENDOSCOPY, COLON, DIAGNOSTIC Routine 07/05/2012 3:18 PM CDT from Last 3 Months or Most Recently Relevant to Health Maintenance Results * (ABNORMAL) GLUCOSE - POINT OF CARE (AMB) STL (02/09/2025) Glucose 155(A) 60 - 100 mg/dL Lot # [id number] Expiration Date 10/24/2025 QC Verified Yes Yes Blood BLOOD SPECIMEN / Unknown 02/09/2025 Esequiel Palmer MD LAB - POINT OF CARE ORDERABLES F inal Result * HEMOGLOBIN A1C - POINT OF CARE (HgbA1C) (02/09/2025) Hemoglobin A1c POCT 8.3 % Expiration Date 05/19/2026 Lot # [id number] QC Verified Yes Yes Blood BLOOD SPECIMEN / Unknown 02/09/2025 us Esequiel Palmer MD LAB - POINT OF CARE ORDERABLES F inal Result * MICROALB/CREAT RATIO URINE RANDOM PANEL (11/12/2024 12:37 PM CDT) Creatinine Urine 70.7 Not Estab. mg/dL [facility] INSURANCE BILL Microalbumin Urine 4.5 Not Estab. ug/mL [facility] INSURANCE BILL Microalbumin/Crea tinine Ratio 6 0 - 29 mg/g creat [facility] INSURANCE BILL Comment: Normal: 0 - 29 Moderately increased: 30 - 300 Severely increased: >300 11/12/2024 12:3 7 PM CDT 11/12/2024 Narrative [facility] INSURANCE BILL - 11/13/2024 10:10 AM CDT Performed at: 01 - [address] [id number] Continuous Process Tanner Rotary Drum: Xander Goodwin PhD, Phone: [phone] us Esequiel Palmer MD LAB - URINE CHEMISTRY ORDERABLES Final Result [facility] INSURANCE BILL [address] [place] [address] * (ABNORMAL) BASIC METABOLIC PANEL (CALCIUM TOTAL) (11/12/2024 12:37 PM CDT) Glucose 122(H) 70 - 99 mg/dL [facility] INSURANCE BILL BUN 16 8 - 27 mg/dL [facility] INSURANCE BILL Creatinine 0.50(L) 0.57 - 1.00 mg/dL [facility] INSURANCE BILL eGFR by CKD-EPI 101 >59 mL/min/1.7 3 [facility] INSURANCE BILL BUN/Creatinine Ratio 32(H) 12 - 28 [facility] INSURANCE BILL Sodium 139 134 - 144 mmol/L [facility] INSURANCE BILL Potassium 4.4 3.5 - 5.2 mmol/L [facility] INSURANCE BILL Chloride 99 96 - 106 mmol/L [facility] INSURANCE BILL CO2 22 20 - 29 mmol/L [facility] INSURANCE BILL Calcium 10.6(H) 8.7 - 10.3 mg/dL [facility] INSURANCE BILL 11/12/2024 12:3 7 PM CDT 11/12/2024 Narrative [facility] INSURANCE BILL - 11/13/2024 11:11 AM CDT Performed at: 01 - [place] [id number] [place], [place] [id number] Continuous Process Tanner Rotary Drum: Xander Goodwin PhD, Phone: [phone] us Esequiel Palmer MD LAB - CHEMISTRY ORDERABLES Final Result [facility] INSURANCE BILL [address] [place] [address] * MAMMO BILAT SCREENING W MARCIAL (12/29/2021 [...] dating back to September 21, 2011. TECHNIQUE: BILATERAL digital breast tomosynthesis (DBT) and synthetic 2D digital mammogram images were obtained (bilateral craniocaudal and mediolateral oblique projections) including computer aided detection (CAD.) BREAST PARENCHYMAL COMPOSITION:Category B: There are scattered areas of fibroglandular density. MAMMOGRAM FINDINGS: There is no suspicious finding in either breast. Krystal Rainey MD MAMMO ORDERABLES Final Result * DIABETES EYE EXAM (10/26/2020) us Provider Unknown HEALTH MAINTENANCE Final Result * DEXA BONE DENSITY AXIAL SKELETON (09/01/2020 2:45 PM OIL DIPPER) Anatomical Region Laterality Modality Mammography 09/01/2020 3:03 PM OIL DIPPER Narrative 09/01/2020 3:04 PM OIL DIPPER BONE MINERAL DENSITY STUDY INDICATION: Postmenopausal ovarian [...] Judie Moreno on 09/01/2020 at 3:04 PM us Krystal Rainey MD DEXA ORDERABLES Final Result * HEPATITIS C ANTIBODY (12/06/2012 1:31 PM CDT) Hepatitis C Virus Antibody <0.1 0.0 - 0.9 s/co ratio [facility] ACCOUNT BILL Comment: Negative: < 0.8 Indeterminate 0.8 - 0.9 Positive: > 0.9 . In order to reduce the incidence of a false positive result, the CDC recommends that all s/co ratios between 1.0 and 10.9 be confirmed with additional RIBA or PCR testing. Blood specimen (specimen) BLOOD SPECIMEN / Unknown 12/06/2012 1:31 PM CDT 12/06/2012 3:43 PM CDT Narrative Resulting Agency Comment [facility] [address] [facility] [id number] us Miah Bowman DO LAB - CHEMISTRY ORDERABLES Fi nal Result Performing Organization Address City/[facility]/ZIP Co de Phone Number [facility] ACCOUNT BILL [address] [place] [address] * ENDOSCOPY, COLON, DIAGNOSTIC (07/05/2012 3:18 PM CDT) Narrative Transcriptions Jalen Bloom DO - 07/05/2012 3:18 PM CDT us Jalen Bloom DO GI PROCEDURE ORDERABLES Fi nal Result [facility] [place] [place] [address] from Last 3 Months or Most Recently Relevant to Health Maintenance Insurance [employer] MEDICARE ADV Advance Directives * FULL RESUSCITATION (Latest Code Status on File) Date Activated Date Inactivated Comments 11/14/2012 9:58 PM 11/15/2012 7:45 PM Care Teams Button Breaker Operator Relationship Specialty Start Date End Date Jose R Peck MD [address] [place] [phone] PCP - General Internal Medicine 09/15/22 [place] [address] [facility] [address] [place] [phone] Pulmonary Disease 05/19/19 [place] [address] [facility] [address] [place] [address] Endocrinology 07/30/19 [place] [address] [place] [phone] Anesthesiology-Pain Management 07/30/19
[2025-05-08 07:19] VITALS: BP 167/72; PULSE 81; RESP 20; TEMP 36; O2SAT 94
[2025-05-08] MEDS: LACTATED RINGERS 1,000 ML 150 ML IV CONT (07:26)
--- NOTE | 2025-05-08 07:31 | WPDANESEPPF ---
Anes - Initial Pre Proc Eval Procedure: Operation Date: 05/08/25 08:00 Proposed Procedures p Screening Colonoscopy - Jordin Diamond MD Date/Time: 05/08/25 07:31 Surgeon: Jordin Diamond MD Pre Op Diagnosis: Screening Patient Data Age: 70 Gender: F Height: 1.65 m Weight: 97.1 kg Last Vital Signs Temp 36.0 C L 05/08/25 07:19 Pulse 81 05/08/25 07:19 Resp 20 05/08/25 07:19 BP 167/72 H 05/08/25 07:19 Pulse Ox 94 05/08/25 07:19 O2 Del Method Room Air 05/08/25 07:19 Allergies Allergy/AdvReac Type Severity Reaction Status Date / Time tetracycline Allergy Mild Nausea and Verified 05/08/25 07:10 Vomiting statins Allergy Mild pain Uncoded 05/08/25 07:10 Home Medications ?Medication ?Instructions ?Recorded ?Confirmed ?Type BD Zeenat 2nd Gen Pen Needle 32 #100 ea 01/31/24 01/30/25 Rx gauge x 5/32 (pen needle, diabetic) Basaglar KwikPen U-100 Insulin 100 45 unit (0.45 mL) subcut QPM #15 mL 01/31/24 05/08/25 Rx unit/mL (3 mL) subcutaneous (insulin glargine) Trulicity 0.75 mg/0.5 mL 0.75 mg (0.5 mL) subcut WEEKLY #2 01/31/24 05/08/25 Rx subcutaneous pen injector mL (dulaglutide) albuterol sulfate 90 mcg/actuation 1 inh inhalation Q4H PRN shortness 01/31/24 04/27/25 Rx aerosol inhaler (Ventolin HFA) of breath or wheezing #8.5 grams glipizide 10 mg tablet 10 mg PO BID #60 tabs 01/31/24 05/08/25 Rx lancets #300 ea 03/19/24 01/30/25 Rx hydrochlorothiazide 12.5 mg tablet 12.5 mg PO DAILY #30 tabs 07/14/24 05/08/25 Rx montelukast 10 mg tablet 10 mg PO DAILY #30 tabs 07/29/24 05/08/25 Rx albuterol sulfate 90 mcg/actuation 1 inh inhalation Q4H 01/21/25 04/27/25 History aerosol inhaler (Ventolin HFA) bempedoic acid 180 mg-ezetimibe 10 1 tablet PO DAILY 01/21/25 05/08/25 History mg tablet (Nexlizet) cyclosporine 0.05 % eye drops in a 1 drp EACH EYE Q12H 01/21/25 04/27/25 History dropperette (Restasis) metformin 500 mg tablet 1,000 mg (2 x 500 mg) PO BID #120 03/08/25 04/27/25 Rx tabs losartan 100 mg tablet 100 mg PO DAILY #90 tabs 03/13/25 05/08/25 Rx dapagliflozin propaned 5 1 tablet PO BID 04/27/25 05/08/25 History mg-metformin ER 1,000 mg tablet, ext rel 24hr (Xigduo XR) Laboratory Tests 05/08/25 07:16 POC Capillary Glucose 130 H mg/dl (65-105) Patient hx anesthesia problems: none Family hx anesthesia problems: none Results Review: All pre-operative results and documents have been reviewed as part of the pre-operative evaluation. [facility] Past Medical History Medical History (Updated 05/07/25 @ 15:55 by Sandip Jamison DO) COPD (chronic obstructive pulmonary disease) Dislocation of right patella Clavicular fracture Left wrist fracture Bilateral cataracts Asthma HTN (hypertension) Sleep apnea Diabetes mellitus Surgical History Surgical History H/O wrist surgery Left wrist ORIF H/O bilateral cataract extraction Hx of LASIK H/O tubal ligation Social History Social History Smoking packs per day: 3 Smoking cigarettes per day: 60.0 Years smoked: 33 Smoking pack-years: 99.00 Smoking status: Former smoker Alcohol intake: current Alcohol use details: occasional Substance use: never Do You Feel Safe in your Home?: Yes Lack of Transportation: No Lack of Food: Never True Current Housing: I Have Housing Concerned About Future Housing: No Difficulty Paying Gas/Electric Bills: No Difficulty Paying for Meds: YES Currently Unemployed: No Education: Associate Degree Difficulty w/ Childcare or Family Care: No Living arrangements: with family Anes - Eval Final PreProcedure Day of Procedure 05/08/25 07:31 Patient weight: obese Heart: regular rate and rhythm Lungs: clear to auscultation Airway: Mallampati scale class II Neurological: alert and oriented Last oral intake: >/= 8 hours ASA classification: IV Emergent: no Anesthetic plan: proceed Anesthesia type and monitoring: general GIVS and standard monitoring Results Review: All pre-operative results and documents have been reviewed as part of the pre-operative evaluation. Informed Consent: The patient's anesthetic plan and its attendant risks and benefits were discussed with the patient/family/POA. Questions were solicited and answers provided to the satisfaction of the patient/family/POA.
--- NOTE | 2025-05-08 07:53 | PM.HPGS ---
History of Present Illness History of Present Illness Consent: Risks, benefits, and alternatives have been discussed and questions answered. Patient agrees to proceed with procedure. Chief complaint: Screening Narrative: Emy Fischer is a 70 year old female with colon polyp Review of Systems Review of Systems: All systems reviewed & are unremarkable except as noted in HPI and below PMFSH Past Medical History Medical History (Updated 05/08/25 @ 07:53 by Jordin Diamond MD) Colon polyp COPD (chronic obstructive pulmonary disease) Dislocation of right patella Clavicular fracture Left wrist fracture Bilateral cataracts Asthma HTN (hypertension) Sleep apnea Diabetes mellitus Surgical History Surgical History H/O wrist surgery Left wrist ORIF H/O bilateral cataract extraction Hx of LASIK H/O tubal ligation Social History Social History Smoking packs per day: 3 Smoking cigarettes per day: 60.0 Years smoked: 33 Smoking pack-years: 99.00 Smoking status: Former smoker Alcohol intake: current Alcohol use details: occasional Substance use: never Do You Feel Safe in your Home?: Yes Lack of Transportation: No Lack of Food: Never True Current Housing: I Have Housing Concerned About Future Housing: No Difficulty Paying Gas/Electric Bills: No Difficulty Paying for Meds: YES Currently Unemployed: No Education: Associate Degree Difficulty w/ Childcare or Family Care: No Living arrangements: with family Meds Home Medications and Allergies Home Medications ?Medication ?Instructions ?Recorded ?Confirmed ?Type BD Zeenat 2nd Gen Pen Needle 32 #100 ea 01/31/24 01/30/25 Rx gauge x 5/32 (pen needle, diabetic) Leelaaglar KwikPen U-100 Insulin 100 45 unit (0.45 mL) subcut QPM #15 mL 01/31/24 05/08/25 Rx unit/mL (3 mL) subcutaneous (insulin glargine) Trulicity 0.75 mg/0.5 mL 0.75 mg (0.5 mL) subcut WEEKLY #2 01/31/24 05/08/25 Rx subcutaneous pen injector mL (dulaglutide) albuterol sulfate 90 mcg/actuation 1 inh inhalation Q4H PRN shortness 01/31/24 04/27/25 Rx aerosol inhaler (Ventolin HFA) of breath or wheezing #8.5 grams glipizide 10 mg tablet 10 mg PO BID #60 tabs 01/31/24 05/08/25 Rx lancets #300 ea 03/19/24 01/30/25 Rx hydrochlorothiazide 12.5 mg tablet 12.5 mg PO DAILY #30 tabs 07/14/24 05/08/25 Rx montelukast 10 mg tablet 10 mg PO DAILY #30 tabs 07/29/24 05/08/25 Rx albuterol sulfate 90 mcg/actuation 1 inh inhalation Q4H 01/21/25 04/27/25 History aerosol inhaler (Ventolin HFA) bempedoic acid 180 mg-ezetimibe 10 1 tablet PO DAILY 01/21/25 05/08/25 History mg tablet (Nexlizet) cyclosporine 0.05 % eye drops in a 1 drp EACH EYE Q12H 01/21/25 04/27/25 History dropperette (Restasis) metformin 500 mg tablet 1,000 mg (2 x 500 mg) PO BID #120 03/08/25 04/27/25 Rx tabs losartan 100 mg tablet 100 mg PO DAILY #90 tabs 03/13/25 05/08/25 Rx dapagliflozin propaned 5 1 tablet PO BID 04/27/25 05/08/25 History mg-metformin ER 1,000 mg tablet, ext rel 24hr (Xigduo XR) Allergies Allergy/AdvReac Type Severity Reaction Status Date / Time tetracycline Allergy Mild Nausea and Verified 05/08/25 07:10 Vomiting statins Allergy Mild pain Uncoded 05/08/25 07:10 Vital Signs Vital Signs - 24 hr 05/08/25 07:19 Temperature 96.8 F L Pulse Rate 81 Respiratory Rate 20 Blood Pressure 167/72 H Pulse Oximetry 94 Oxygen Delivery Room Air Exam Const: General: comfortable and no acute distress HENMT: Face/Nose/Sinus: Normal nares present Eyes: General: appearance normal, both eyes and all related structures Neck: Neck: no JVD Resp: Auscultation: clear to auscultation bilaterally Cardio: Rate: regular rate Rhythm: regular rhythm GI: Inspection: non-distended GI Palp: Yes Soft to palpation Skin: General skin exam: normal color Neuro: Speech: normal speech Extrem: General: normal to inspection Psych: Mental Status: mental status grossly normal Assessment and Plan Assessment and plan (1) Colon polyp: Code(s): K63.5 - Polyp of colon Status: Acute Assessment and Plan: colonoscopy
[2025-05-08 08:09] VITALS: BP 110/60; PULSE 75; RESP 20; O2SAT 94
--- NOTE | 2025-05-08 08:09 | S_PTH ---
PATIENT: Emy Fischer LOC: [facility]#:[id number] AGE/SX: 70/F ROOM: RE05/08/[address]: Jordin Diamond MD : [id number] BED: DIS: 05/08/2025 SPEC #: [id number] RECD: 05/08/25 09:53 STATUS: NADIA RECuauhtemoc #: [id number] MARY: 05/08/25 08:[address]: Jordin Diamond DEPT: [facility] Surgical RECD BY: Linda Fisher ENTERED: 05/08/25 09:54 SP TYPE: Surgical OTHR DR: Cony WatsonMD Tissues: A - Colon Polypectomy B - Colon Polypectomy C - Colon Polypectomy Procedures: Hematoxylin and Eosin Stain Gross and Microscopic Level 4
[2025-05-08 08:19] VITALS: BP 109/72; PULSE 82; RESP 20; O2SAT 96
[2025-05-08 08:29] VITALS: BP 142/66; PULSE 77; RESP 19; O2SAT 97
== END 2025-05-08 08:40 | disposition home or self-care (01) ==
PROVIDERS: PCP Family Medicine; Referring Provider Family Medicine; Visit Provider Internal Medicine Gastroenterology
PROC: 0DJD8ZZ Inspection of Lower Intestinal Tract, Via Natural or Artificial Opening Endoscopic (ICD-10-PCS; CPT 45378; principal; 2025-05-08 08:00)
DX: Z12.11 Encounter for screening for malignant neoplasm of colon (principal); D12.2 Benign neoplasm of ascending colon; D12.3 Benign neoplasm of transverse colon; D12.5 Benign neoplasm of sigmoid colon; K63.5 Polyp of colon; K57.30 Diverticulosis of large intestine without perforation or abscess without bleeding; K64.8 Other hemorrhoids; E11.9 Type 2 diabetes mellitus without complications; Z87.891 Personal history of nicotine dependence; E66.9 Obesity, unspecified; Z68.35 Body mass index [BMI] 35.0-35.9, adult
CPT/HCPCS: 45385; 82948; 88305; J2704; J7120